=== PATIENT | female | born 1970 | race Caucasian/White ===

== ENCOUNTER 2017-01-16 14:27 | Observation (INO) ==
--- NOTE | 2017-01-16 14:56 | Emergency Department Note ---
Disposition Clinical Impression: Infected prosthetic knee joint Qualifiers: Encounter type: initial encounter Qualified Code(s): T84.59XA - Infection and inflammatory reaction due to other internal joint prosthesis, initial encounter Disposition: Admitted As Inpatient Condition: Fair Referrals: Dejuan Bell, PAC [Primary Care Provider] - Forms: ED Satisfaction Letter Time of Disposition: 17:00 Extremity Problem HPI - General Chief complaint: ED Extremity Problem,Nontraumatic Stated complaint: poss. L knee infection Time Seen by Provider: 01/16/17 14:44 Source: patient Mode of arrival: ambulatory Limitations: no limitations Nursing Notes Reviewed: Yes Vital Signs Reviewed: Yes - History of Present Illness HPI Narrative: 46 yo f with L TKR about 12/23 presents with 9/10 knee pain. Pt states pain started a few days ago, was placed of keflex and bactrim PO abx. Day 4 outpt abx po, symptoms continuing to get worse. Knee pain and swelling have continued to get worse. She has had subjective fever and chills. Pain is made worse with movement, weight bearing or touch and relieved by nothing. Pt decently had LE doppler done that was -for DVT. ROM of L knee is decreased secondary to pain and swelling.She denies N/V/D CP, SOB, numbness tingling. Pt Subjective Complaint: joint paint Onset (ago): day(s) Consistency: constant Injury Location: left Pain Scale: 8 Quality: burning Radiation: none Improves with: nothing Worsens with: range of motion, weight bearing, walking, palpation Associated symptoms: Reports: fever - Related Data Home Medications Medication Instructions Recorded Confirmed Acetaminophen [Tylenol] 325 mg PO Q6HR PRN 11/25/16 11/25/16 Albuterol Sulfate [Proair Hfa] 2 puff IH Q4-6H PRN 11/25/16 11/25/16 Budesonide/Formoterol 160/4.5 2 puff IH BIDR 11/25/16 11/25/16 [Symbicort 160/4.5] Cyclobenzaprine [Flexeril] 10 mg PO TID PRN 11/25/16 11/25/16 Diclofenac Sodium [Voltaren] 1 appl TP QID 11/25/16 11/25/16 Docusate [Colace] 100 mg PO BID PRN 11/25/16 11/25/16 Gabapentin [Neurontin] 600 mg PO TID 11/25/16 11/25/16 Nitroglycerin [Nitrostat] 0.4 mg SL AD PRN 11/25/16 11/25/16 Omeprazole [PriLOSEC] 40 mg PO DAILY 11/25/16 11/25/16 Aspirin 325 mg PO BID 01/16/17 01/16/17 Lamotrigine 200 mg PO QAM 01/16/17 01/16/17 Allergies Allergy/AdvReac Type Severity Reaction Status Date / Time ibuprofen Allergy Swelling Verified 01/16/17 16:52 of Lip/Tongue/Throat meperidine [From Demerol] Allergy Anaphylaxis Verified 01/16/17 16:52 All systems ED: reviewed and negative except as stated. Constitutional: Reports: fever, chills Eyes: Denies: eye pain, eye discharge, vision change Cardiovascular: Denies: chest pain, palpitations, dyspnea on exertion, edema, syncope Respiratory: Denies: cough, dyspnea, wheezes, hemoptysis, stridor Gastrointestinal: Denies: abdominal pain, nausea, vomiting, diarrhea, constipation, hematemesis, melena, hematochezia Genitourinary: Denies: dysuria, frequency, hematuria, discharge Musculoskeletal: Reports: arthralgia Integumentary: Denies: rash, abrasion, lesions Neurological: Denies: headache, weakness, numbness, paresthesias, confusion, abnormal gait, vertigo Psychiatric: Denies: anxiety, depression, suicidal thoughts, homicidal thoughts , auditory hallucinations, visual hallucinations Past Medical History - Past Medical History Medical history: Reports: COPD, GERD, other Surgical history: Reports: cholecystectomy, hysterectomy, knee replacement, other Psychiatric history: Reports: anxiety, depression CAPTAIN ROOM SERVICE history: Reports: no CAPTAIN ROOM SERVICE history, 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 - Social History Smoking Status: Current every day smoker Smokeless Tobacco Status: No Alcohol use: Reports: none Drug use: Reports: none Physical Exam - General Limitations: no limitations General appearance: alert - Head Head exam: atraumatic, normocephalic, normal inspection - Eye Eye exam: Present: normal appearance, PERRL, EOMI - Expanded Eye Exam Pupils: Left: reactive - ENT ENT exam: normal exam, normal oropharynx, mucous membranes moist - Neck Neck exam: Present: normal inspection, full ROM, trachea midline - Chest Chest inspection: Present: normal inspection, symmetric chest wall rise - Respiratory Respiratory exam: Present: normal lung sounds bilaterally - Cardiovascular Cardiovascular exam: Present: regular rate, normal rhythm, normal heart sounds, +S1, +S2 - Abdominal Exam Abdominal exam: Present: soft, Non-Tender. Absent: tenderness, distention, guarding, rebound, rigidity - Extremities Exam Extremities exam: Present: tenderness, normal capillary refill, joint swelling. Absent: pedal edema, calf tenderness - Expanded Lower Extremity Exam Knee exam: Present: tenderness, swelling, erythema, effusion, other (healing midline incision C/D/I). Absent: abrasion, laceration, deformity, dislocation Neurovascular/Tendon exam: Present: normal capillary refill, normal 2-point discrimination, normal fine/light touch. Absent: pulse deficit, sensory deficit , extremity cold to touch, foot drop - Back Exam Back exam: Present: normal inspection, full ROM. Absent: tenderness - Neurological Exam Neurological exam: Present: alert, oriented X3, CN II-XII intact - Psychiatric Psychiatric exam: Present: normal affect, normal mood - Skin Skin exam: Present: warm, dry, intact, normal color Course Course Narrative: likely L knee infection of total joint replacement failed PO abx therapy will likely need admission for IV abx therapy - Reevaluation(s) Reevaluation #1: OAx3 pt c/o intense L Knee pain Time: 04:00 Vital Signs Temperature 98.5 F 01/16/17 14:29 Pulse Rate 111 01/16/17 14:29 Respiratory Rate 18 01/16/17 14:29 Blood Pressure 123/81 01/16/17 14:29 O2 Sat by Pulse Oximetry 98 01/16/17 14:29 Temperature 98.5 F 01/16/17 14:29 Pulse Rate 88 01/16/17 16:18 Respiratory Rate 18 01/16/17 16:18 Blood Pressure 115/79 01/16/17 16:18 O2 Sat by Pulse Oximetry 100 01/16/17 16:18 Oxygen Delivery Oxygen Delivery Room Air Extremity Problem, Nontraumati - MDM Narrative Medical decision making narrative: likely L knee joint infection failed outpt PO abx despite no temp or leukocytosis high suspicion for L knee infected prosthetic will need IV abx and orthopedic consult - Differential Diagnosis Likely: other - Medical Records Medical records reviewed: Yes I reviewed the patient's medical records. - Lab Data Lab results reviewed: Yes I reviewed the patient's lab results. Result diagrams: 01/16/17 14:54 01/16/17 14:54 Lab Results 01/16/17 01/16/17 Range/Units 14:54 14:54 WBC 9.2 (4.3-11.1) K/mcL RBC 3.90 (3.82-4.97) M/mcL Hgb 13.6 (11.5-15.4) g/dL Hct 39.8 (35.3-44.9) % MCV 102.1 H (83.0-100.0) fL MCH 34.9 H (28.0-33.3) pg MCHC 34.2 (31.6-35.5) g/dL RDW 13.3 (11.5-14.5) % Plt Count 301 (140-400) K/mcL MPV 8.7 L (9.4-12.4) fL Sodium 139 (136-145) mEq/L Potassium 3.9 (3.5-4.5) mEq/L Chloride 108 (98-109) mEq/L Carbon Dioxide 23 (19-29) mEq/L BUN 9 (7-20) mg/dL Creatinine 0.98 (0.57-1.11) mg/dL Est GFR ( Amer) > 60 (> 60) Est GFR (Non-Af Amer) > 60 (> 60) BUN/Creatinine Ratio 9 (6-26) Glucose 103 H (70-99) mg/dL Calculated Osmolality 287 (280-300) Calcium 8.9 (8.6-10.8) mg/dL - Radiology Data Radiology results reviewed: Yes I reviewed the patient's radiology results. - Core Measures AMI Core Measures Followed: Yes Critical Care Time Critical Care Time: No Attestation Statement - Attestation Attestation: I examined this patient and my medical decision-making was reviewed with the EMERGENCY ROOM DOCTOR/PA/Advanced Practice Nurse/Resident Physician. I agree with the documented findings, disposition and treatment plan as described except to the extent set forth below. spoke with Ortho dr mirza will admit to hospitalist spoke to hospitalist as well accepted pt abelardo
[2017-01-16 15:06] LABS: Hematocrit 39.8 % (35.3-44.9); Hemoglobin 13.6 g/dL (11.5-15.4); Mean Corpuscular HGB Conc 34.2 g/dL (31.6-35.5); Mean Corpuscular Hemoglobin 34.9 pg (28.0-33.3); Mean Corpuscular Volume 102.1 fL (83.0-100.0); Mean Platelet Volume 8.7 fL (9.4-12.4); Platelet Count 301 K/mcL (140-400); Red Cell Distribution Width 13.3 % (11.5-14.5)
[2017-01-16 15:31] LABS: BUN/Creatinine Ratio 9 (6-26); Blood Urea Nitrogen 9 mg/dL (7-20); Calcium 8.9 mg/dL (8.6-10.8); Carbon Dioxide 23 mEq/L (19-29); Chloride 108 mEq/L (98-109); Glucose 103 mg/dL (70-99); Osmolality,Calculated 287 (280-300); Potassium 3.9 mEq/L (3.5-4.5); Sodium 139 mEq/L (136-145); eGFR For African Americans > 60 (> 60); eGFR For Non-African Americans > 60 (> 60)
[2017-01-16] MEDS ORDERED: Piperacillin/Tazobactam 3.375 GM in D5% in Water (Mini-Bag+) 100 ML IVPB SCH ×2 (15:58→18:00)
[2017-01-16] MEDS ORDERED: Vancomycin 2,000 MG in D5% in Water 500 ML IVPB ONE (16:00)
[2017-01-16] MEDS ORDERED: *HR* OxyCODONE/APAP 5/325 TABLET PO ONE (16:43)
[2017-01-16] MEDS ORDERED: *HR* HYDROmorphone (PF) 1 MG/ML SYRINGE IVP ONE (17:15)
--- NOTE | 2017-01-16 17:20 | Internal Med History&Physical ---
Date of Encounter: 01/16/17 Time of Encounter: 17:17 Assessment and Plan (1) Infected prosthetic knee joint Current visit: Yes Status: Acute We will continue IV vancomycin and Zosyn for now. does not have white count or fever, was tachycardic on presentation. Was treated outpatient with Keflex and Bactrim with no improvement. Cultures has been sent from ED. Orthopedics has been consulted. We will follow recommendations. Qualifiers: Encounter type: initial encounter Qualified Code(s): T84.59XA - Infection and inflammatory reaction due to other internal joint prosthesis, initial encounter; Z96.659 - Presence of unspecified artificial knee joint Internal Medicine - H&P: HPI Chief complaint: left knee pain and swelling Admitted From: Home Plans for Post Hospital Care: Home History of present illness: Ms. Meade is a 46 year old female s/p L TKR about 12/23 presents with 9/10 knee pain. she says DR. Nelson did it in [place] and pain started a few days ago, was placed of keflex and bactrim PO abx. Day 4 outpt abx po, symptoms continuing to get worse. Knee pain and swelling have continued to get worse. She has had subjective fever and chills. Pain is made worse with movement, weight bearing or touch and relieved by nothing. Pt recently had LE doppler done that was negative for DVT. ROM of L knee is decreased secondary to pain and swelling.She denies N/V/D CP, SOB, numbness tingling. ortho was consulted from ED and has been started on IV antibiotics. Past Med Surg Social Fam HX - Past Medical History Medical history: COPD, GERD, other Psychiatric history: anxiety, depression - Past Surgical History Surgical History: cholecystectomy, hysterectomy, knee replacement, other - Social History Smoking Status: Current every day smoker Smokeless Tobacco Status: No Alcohol use: none Drug use: none Internal Medicine - H&P: Meds Acetaminophen [Tylenol] 325 mg PO Q6HR PRN 11/25/16 [History] Albuterol Sulfate [Proair Hfa] 2 puff IH Q4-6H PRN 11/25/16 [History] Budesonide/Formoterol 160/4.5 [Symbicort 160/4.5] 2 puff IH BIDR 11/25/16 [ History] Cyclobenzaprine [Flexeril] 10 mg PO TID PRN 11/25/16 [History] Diclofenac Sodium [Voltaren] 1 appl TP QID 11/25/16 [History] Docusate [Colace] 100 mg PO BID PRN 11/25/16 [History] Gabapentin [Neurontin] 600 mg PO TID 11/25/16 [History] Nitroglycerin [Nitrostat] 0.4 mg SL AD PRN 11/25/16 [History] Omeprazole [PriLOSEC] 40 mg PO DAILY 11/25/16 [History] Aspirin 325 mg PO BID 01/16/17 [History] Lamotrigine 200 mg PO QAM 01/16/17 [History] Allergies ibuprofen Allergy (Verified 01/16/17 16:52) Swelling of Lip/Tongue/Throat meperidine [From Demerol] Allergy (Verified 01/16/17 16:52) Anaphylaxis All Systems PM: A 10-system review of systems was performed and is negative for pertinent findings except as documented above in the HPI. - Constitutional Vitals: Temp Pulse Resp BP Pulse Ox 98.5 F 88 18 115/79 100 01/16/17 14:29 01/16/17 16:18 01/16/17 17:13 01/16/17 17:13 01/16/17 16:18 General appearance: Present: A&O X 3, no acute distress Exam: Neck supple. Chest bilateral clear, and oriented times. CVS S1-S2, no murmurs rubs or gallops. Abdomen soft, nontender, bowel sounds are present. Extremities left leg swollen,scar on the left knee from TKR, healed with no discharge, tender more over the left knee with mild redness and swelling. Internal Med - H&P Results - Labs CBC & Chem 7: 01/16/17 14:54 01/16/17 14:54
[2017-01-16] MEDS ORDERED: *HR* Enoxaparin 30 MG/0.3 ML SYRINGE SQ ONE (17:46)
[2017-01-16] MEDS: *HR* OxyCODONE/APAP 7.5/325 TABLET PO PRN (23:53)
[2017-01-17] MEDS: *HR* Enoxaparin 30 MG/0.3 ML SYRINGE SQ SCH (04:51)
[2017-01-17] MEDS: *HR* OxyCODONE/APAP 7.5/325 TABLET PO PRN ×5 (04:51→21:13)
[2017-01-17] MEDS: Piperacillin/Tazobactam 3.375 GM in D5% in Water (Mini-Bag+) 100 ML IVPB SCH ×2 (04:52→17:02)
[2017-01-17] MEDS ORDERED: Piperacillin/Tazobactam 3.375 GM in D5% in Water (Mini-Bag+) 100 ML IVPB SCH (06:00)
[2017-01-17] MEDS: Diclofenac Sodium [Voltaren] 1 APPL TP SCH ×4 (08:02→20:22)
[2017-01-17] MEDS: Gabapentin 300 MG CAPSULE PO SCH ×3 (08:03→20:22)
[2017-01-17 08:05] LABS: Basophils # 0.1 K/mcL (0.0-0.2); Basophils % 0.8 %; Eosinophils # 1.1 K/mcL (0.0-0.6); Eosinophils % 12.9 %; Hematocrit 41.9 % (35.3-44.9); Hemoglobin 13.7 g/dL (11.5-15.4); Immature Granulocytes % 0.2 % (0-4); Lymphocytes # 2.1 K/mcL (0.6-4.6); Lymphocytes % 23.8 %; Mean Corpuscular HGB Conc 32.7 g/dL (31.6-35.5); Mean Corpuscular Hemoglobin 34.1 pg (28.0-33.3); Mean Corpuscular Volume 104.2 fL (83.0-100.0); Mean Platelet Volume 8.9 fL (9.4-12.4); Monocytes # 0.8 K/mcL (0.0-1.3); Monocytes % 8.7 %; Neutrophils # 4.7 K/mcL (1.6-8.9); Platelet Count 324 K/mcL (140-400); Red Blood Count 4.02 M/mcL (3.82-4.97); Red Cell Distribution Width 13.2 % (11.5-14.5); Segmented Neutrophils % 53.6 %
[2017-01-17 08:18] LABS: BUN/Creatinine Ratio 13 (6-26); Blood Urea Nitrogen 13 mg/dL (7-20); Calcium 9.2 mg/dL (8.6-10.8); Carbon Dioxide 26 mEq/L (19-29); Chloride 106 mEq/L (98-109); Glucose 100 mg/dL (70-99); Osmolality,Calculated 288 (280-300); Potassium 3.9 mEq/L (3.5-4.5); Sodium 139 mEq/L (136-145); eGFR For African Americans > 60 (> 60); eGFR For Non-African Americans 58 (> 60)
[2017-01-17] MEDS: Ondansetron 4 MG/2 ML VIAL IVP PRN ×2 (08:59→15:06)
[2017-01-17] MEDS: *HR* Morphine 2 MG/ML SYRINGE IVP PRN ×4 (10:20→23:56)
[2017-01-17] MEDS: lamoTRIgine 100 MG TABLET PO SCH (10:44)
[2017-01-17] MEDS: Nicotine 21 MG PATCH.TD24 TD SCH (10:44)
[2017-01-17] MEDS ORDERED: Vancomycin 2,000 MG in D5% in Water 250 ML IVPB SCH (11:00)
--- NOTE | 2017-01-17 11:22 | Internal Med Progress Note ---
Date of Encounter: 01/17/17 Time of Encounter: 11:20 - Assessment and plan (1) Status post total knee replacement, left Current Visit: Yes Status: Chronic Assessment and plan: Patient underwent left TKR at [facility] on 12/24/15. (2) Left knee pain Current Visit: Yes Status: Acute Assessment and plan: A few days ago, patient developed left knee pain and swelling with associated subjective fever and chills. She was started on oral Keflex and Bactrim as outpatient with no improvement of her symptoms. Suspected infected prosthetic left knee joint. No leukocytosis. No fever. No tachycardia. Continue IV vancomycin and Zosyn. Continue pain control. Blood cultures pending. CT of left leg ordered. Orthopedics service consulted. Qualifiers: Chronicity: acute Qualified Code(s): M25.562 - Pain in left knee - Subjective Interval history: patient complains of intermittent severe pain in left knee and calf. - Constitutional Vitals: Temp Pulse Resp BP Pulse Ox 98.3 F 75 18 118/90 95 01/17/17 06:38 01/17/17 08:07 01/17/17 06:38 01/17/17 08:07 01/17/17 06:38 General appearance: Present: cooperative, A&O X 3, no acute distress, answers questions appropriately - Respiratory Respiratory exam: Present: CTAB - Cardiovascular Cardiovascular exam: Present: RRR - GI/Abdominal GI/Abdominal exam: Present: normal bowel sounds, soft. Absent: distended, tenderness - Extremities Exam Additional comments: left leg: swelling of knee with tenderness to palpation, no rednesss. - Back Exam Back exam: Absent: CVA tenderness (L), CVA tenderness (R) - Neurological Exam Neurological exam: Present: alert, oriented X3, no focal deficits, strengths equal and symetr throughout. Absent: facial droop, speech deficit - Skin Skin exam: Absent: rash Internal Medicine: Result - Labs CBC & Chem 7: 01/17/17 07:41 01/17/17 07:41 Labs: Short CBC 01/17/17 Range/Units 07:41 WBC 8.7 (4.3-11.1) K/mcL Hgb 13.7 (11.5-15.4) g/dL Hct 41.9 (35.3-44.9) % Plt Count 324 (140-400) K/mcL Neutrophils # 4.7 (1.6-8.9) K/mcL BMP 01/17/17 07:41 Sodium 139 Potassium 3.9 Chloride 106 Carbon Dioxide 26 BUN 13 Creatinine 1.01 Glucose 100 H Calcium 9.2 Consult Discharge Plan - Plan Referrals: Dejuan Bell, PAC [Primary Care Provider] -
[2017-01-17] MEDS ORDERED: Ipratropium/Albuterol Neb 3 ML IH PRN (11:29)
[2017-01-17] MEDS: Vancomycin 1,750 MG in D5% in Water 500 ML IVPB SCH ×2 (12:57→23:56)
--- NOTE | 2017-01-17 18:35 | Orthopedic Consult Note ---
Date of Encounter: 01/17/17 Time of Encounter: 18:24 History of Present Illness Chief complaint: Left knee pain HPI: Ms. Meade is a 46 year old female who underwent an uncomplicated left total knee arthroplasty on 12/22/16. Patient was seen in the office in follow-up on 01/06/17 at which time her knee was addressed. She was doing fine, knee incision was healthy. Patient reportedly fell or sustained some sort of an injury to her knee on 01/09/17. This is when her pain changed and became more pronounced along the medial side of the knee. She apparently was seen at [facility] in the emergency room on 01/13/17. She had a lower extremity Doppler that was negative for DVT and was started on Keflex and Bactrim. Patient states that the pain progressed and she presented to the emergency room and [facility] and was admitted for a possible prosthetic joint infection. Patient's chief complaint is medial knee pain and swelling from the knee distal. For complete history and physical data please see the completed medical records. Pertinent orthopedic examination at this time reveals the patient to be afebrile. Vital signs are stable. The left lower extremity shows a healing incision without any evidence of redness drainage etc. Knee motion is quite good. Patient does have tenderness along the medial collateral ligament. There is only mild extension loss. Examination shows no overt instability. Laboratory data includes a normal white blood cell count. Hemoglobin is 13.7. Sedimentation rate is 17, top normal is 15. CRP is pending. CT of the knee shows the cemented 3 component prosthesis without complicating features. There is an effusion as would be expected with a knee that is only 3+ weeks out. Impression: Postoperative left knee pain, status post left TKA. Doubt infectious process, suspect related to MCL sprain/strain on a postop, posttraumatic basis Recommendation: I doubt there is any way to prove that this knee is or is not infected. I doubt arthrocentesis would be helpful due to the patient's antibiotic use. My index of suspicion for infection is extremely low. I would recommend converting patient back to a by mouth regimen of Keflex and Bactrim and use that for roughly 7-10 days. I will see her back in the office for follow-up after discharge. Thank you very much for allowing me to see and care for Samia. Sincerely, David Nelson,DO Past Med Surg Social Fam HX - Past Medical History Medical history: COPD, GERD, other Psychiatric history: anxiety, depression - Past Surgical History Surgical History: cholecystectomy, hysterectomy, knee replacement, other - Social History Smoking Status: Current every day smoker Packs per day: 1 Smokeless Tobacco Status: No Alcohol use: none Drug use: none - Family History Father Hx Family Cardiac Disorders: (TRIPLE BYPASS) Hx Family Endocrine Disorder: Yes (DIABETES) Medications and Allergies Acetaminophen [Tylenol] 325 mg PO Q6HR PRN 11/25/16 [History] Albuterol Sulfate [Proair Hfa] 2 puff IH Q4-6H PRN 11/25/16 [History] Budesonide/Formoterol 160/4.5 [Symbicort 160/4.5] 2 puff IH BIDR 11/25/16 [ History] Cyclobenzaprine [Flexeril] 10 mg PO TID PRN 11/25/16 [History] Diclofenac Sodium [Voltaren] 1 appl TP QID 11/25/16 [History] Docusate [Colace] 100 mg PO BID PRN 11/25/16 [History] Gabapentin [Neurontin] 600 mg PO TID 11/25/16 [History] Nitroglycerin [Nitrostat] 0.4 mg SL AD PRN 11/25/16 [History] Omeprazole [PriLOSEC] 40 mg PO DAILY 11/25/16 [History] Aspirin 325 mg PO BID 01/16/17 [History] Lamotrigine 200 mg PO QAM 01/16/17 [History] Allergies ibuprofen Allergy (Verified 01/16/17 16:52) Swelling of Lip/Tongue/Throat meperidine [From Demerol] Allergy (Verified 01/16/17 16:52) Anaphylaxis All Systems Reviewed: A 10-system review of systems was performed and is negative for pertinent findings except as documented above in the HPI. Physical Exam - Constitutional Vitals: Temp Pulse Resp BP Pulse Ox 98.2 F 18 18 122/70 96 01/17/17 14:35 01/17/17 14:35 01/17/17 11:27 01/17/17 14:25 01/17/17 14:35 Results - Labs Result Diagrams: 01/17/17 07:41 01/17/17 07:41 Labs: Abnormal lab results MCV 104.2 fL (83.0-100.0) H 01/17/17 07:41 MCH 34.1 pg (28.0-33.3) H 01/17/17 07:41 MPV 8.9 fL (9.4-12.4) L 01/17/17 07:41 Eosinophils # 1.1 K/mcL (0.0-0.6) H 01/17/17 07:41 ESR 17 mm/hr (0-15) H 01/17/17 07:41 Est GFR (Non-Af Amer) 58 (> 60) L 01/17/17 07:41 Glucose 100 mg/dL (70-99) H 01/17/17 07:41 H & H 01/17/17 Range/Units 07:41 Hgb 13.7 (11.5-15.4) g/dL Hct 41.9 (35.3-44.9) % All other labs normal. Consult Discharge Plan - Plan Referrals: Dejuan Bell, PAC [Primary Care Provider] -
[2017-01-17 18:54] LABS: C-Reactive Protein 3 mg/L (Less than 5)
[2017-01-17] MEDS: Budesonide/Formoterol 160/4.5 MDI IH SCH (20:56)
[2017-01-18] MEDS: *HR* OxyCODONE/APAP 7.5/325 TABLET PO PRN ×2 (03:07→07:43)
[2017-01-18 04:08] LABS: Basophils % 0.5 %; Eosinophils % 12.4 %; Hematocrit 37.7 % (35.3-44.9); Hemoglobin 12.6 g/dL (11.5-15.4); Immature Granulocytes % 0.3 % (0-4); Lymphocytes % 26.1 %; Mean Corpuscular HGB Conc 33.4 g/dL (31.6-35.5); Mean Corpuscular Hemoglobin 34.7 pg (28.0-33.3); Mean Corpuscular Volume 103.9 fL (83.0-100.0); Mean Platelet Volume 9.1 fL (9.4-12.4); Monocytes # 0.8 K/mcL (0.0-1.3); Monocytes % 10.3 %; Platelet Count 260 K/mcL (140-400); Red Blood Count 3.63 M/mcL (3.82-4.97); Segmented Neutrophils % 50.4 %
[2017-01-18 04:28] LABS: BUN/Creatinine Ratio 14 (6-26); Blood Urea Nitrogen 13 mg/dL (7-20); Calcium 8.6 mg/dL (8.6-10.8); Carbon Dioxide 26 mEq/L (19-29); Chloride 103 mEq/L (98-109); Glucose 95 mg/dL (70-99); Osmolality,Calculated 278 (280-300); Potassium 4.1 mEq/L (3.5-4.5); Sodium 134 mEq/L (136-145); eGFR For African Americans > 60 (> 60); eGFR For Non-African Americans > 60 (> 60)
[2017-01-18] MEDS: Piperacillin/Tazobactam 3.375 GM in D5% in Water (Mini-Bag+) 100 ML IVPB SCH (05:22)
[2017-01-18] MEDS: *HR* Enoxaparin 30 MG/0.3 ML SYRINGE SQ SCH (05:25)
[2017-01-18] MEDS: *HR* Morphine 2 MG/ML SYRINGE IVP PRN (05:27)
[2017-01-18] MEDS: lamoTRIgine 100 MG TABLET PO SCH (07:43)
[2017-01-18] MEDS: Gabapentin 300 MG CAPSULE PO SCH (07:43)
[2017-01-18] MEDS: Diclofenac Sodium [Voltaren] 1 APPL TP SCH (07:44)
[2017-01-18] MEDS: Nicotine 21 MG PATCH.TD24 TD SCH (07:44)
[2017-01-18] MEDS: Budesonide/Formoterol 160/4.5 MDI IH SCH (08:12)
[2017-01-18 08:23] VITALS: BP 121/84
--- NOTE | 2017-01-18 08:32 | Discharge Summary ---
Date of Encounter: 01/18/17 Time of Encounter: 08:31 - Discharge Diagnosis (1) Status post total knee replacement, left Priority: Primary Status: Chronic (2) Left knee pain Priority: Primary Status: Acute Qualifiers: Chronicity: acute Qualified Code(s): M25.562 - Pain in left knee - Discharge Medications Prescriptions: Cephalexin [Keflex] 500 mg PO BID #10 capsule Lactobacillus [Culturelle] 1 each PO BID #10 cap.sprink Nicotine Patch [Nicoderm] 21 mg TD DAILY #30 patch.td24 Sulfamethoxazole/Trimeth DS [Bactrim DS] 1 each PO BID #10 tablet Home Medications: Acetaminophen [Tylenol] 325 mg PO Q6HR PRN 11/25/16 [History] Albuterol Sulfate [Proair Hfa] 2 puff IH Q4-6H PRN 11/25/16 [History] Budesonide/Formoterol 160/4.5 [Symbicort 160/4.5] 2 puff IH BIDR 11/25/16 [ History] Cyclobenzaprine [Flexeril] 10 mg PO TID PRN 11/25/16 [History] Diclofenac Sodium [Voltaren] 1 appl TP QID 11/25/16 [History] Docusate [Colace] 100 mg PO BID PRN 11/25/16 [History] Gabapentin [Neurontin] 600 mg PO TID 11/25/16 [History] Nitroglycerin [Nitrostat] 0.4 mg SL AD PRN 11/25/16 [History] Omeprazole [PriLOSEC] 40 mg PO DAILY 11/25/16 [History] Aspirin 325 mg PO BID 01/16/17 [History] Lamotrigine 200 mg PO QAM 01/16/17 [History] Cephalexin [Keflex] 500 mg PO BID #10 capsule 01/18/17 [Rx] Lactobacillus [Culturelle] 1 each PO BID #10 cap.sprink 01/18/17 [Rx] Nicotine Patch [Nicoderm] 21 mg TD DAILY #30 patch.td24 01/18/17 [Rx] Sulfamethoxazole/Trimeth DS [Bactrim DS] 1 each PO BID #10 tablet 01/18/17 [Rx] Allergies/Adverse Reactions: Allergies ibuprofen Allergy (Verified 01/16/17 16:52) Swelling of Lip/Tongue/Throat meperidine [From Demerol] Allergy (Verified 01/16/17 16:52) Anaphylaxis Procedures/tests Complete & Pending: Procedures Performed prior 72 hours Category Date Time Status CT LE LT wo con [CT] Routine Cat Scan 01/17/17 11:25 Completed Date of admission: 01/16/17 17:02 Primary care physician: Dejuan Bell Consults: 01/17/17 17:33 Consult to Orthopedic Surgery [CONS] Routine Consulting Provider: Orthopedic and Sports Medicine Reason for Consult: dr Nelson. Valeria TKR. c/o swelling and erythema Call Completed: Yes - Patient Status Disposition: Home, Self-Care Condition: Good Functional capacity at discharge: independent ambulation Overall status at discharge: patient is progressing back to baseline - Discharge Instructions Follow Up With: David Nelson DO [Non-Partnered Physician] - (F/U IN 1-2 WEEKS) Dejuan Bell PAC [Primary Care Provider] - (F/U IN 2 WEEKS) Additional Instructions: PLEASE FOLLOW UP WITH DR NELSON.. FOLLOW UP WITH YOUR PRIMARY CARE DOCTOR FOR WEIGHT LOSS PROGRAM AND TOBACCO CESSATION. STOP SMOKING. - Diet and Activity Activity: ambulate only with your walker Diet: low fat, low cholesterol, low salt diet Interval History: Patient reports her knee pain is better and is eager to go home. Patient requests not to have any scripts for pain medications since she follows in the pain management clinic, she will have her pain meds prescribe at Dr Nelson's office. Hospital course: Ms. Meade is a 46 year old female with past medical history of COPD, morbid obesity, and tobacco use who underwent left total knee replacement on 2015 at [facility]. Four days prior to admission, patient developed left knee pain and swelling and she was prescribed oral Keflex and oral Bactrim. She was started on IV Zosyn and IV vancomycin. She remained afebrile and hemodynamically stable during this hospitalization. No leukocytosis. CT head showed status post left open knee arthroplasty without evidence for periprosthetic fracture or loosening, moderate left knee effusion. Given no signs of infection, her IV antibiotics were stopped. PLAN: Oral Keflex and oral Augmentin for 5 more days. Follow-up at Dr. Nelson's office. - Time Spent with Patient Total time spent providing and/or coordinating discharge services: - Constitutional Vitals: Temp Pulse Resp BP Pulse Ox 98.7 F 85 16 121/84 94 01/18/17 08:09 01/18/17 08:09 01/18/17 08:12 01/18/17 08:09 01/18/17 08:12 General appearance: Present: cooperative, A&O X 3, pleasant, no acute distress, answers questions appropriately - Respiratory Respiratory exam: Present: CTAB - Cardiovascular Cardiovascular exam: Present: RRR - GI/Abdominal GI/Abdominal exam: Present: normal bowel sounds, soft. Absent: distended, tenderness - Extremities Exam Additional comments: left knee swelling and mild tenderness. no erythema. no discharge. - Back Exam Back exam: Absent: CVA tenderness (L), CVA tenderness (R) - Neurological Exam Neurological exam: Present: alert, oriented X3, no focal deficits, strengths equal and symetr throughout. Absent: facial droop, speech deficit
[2017-01-18] MEDS ORDERED: Aminoglycoside Consult 1 EACH MC ONE (10:14)
== END 2017-01-18 10:15 | disposition home or self-care (01) ==
LOC: EMEROO 14:27 → 3NENU 14:27
PROVIDERS: ADMIT Internal Medicine; ATTEND Internal Medicine

== ENCOUNTER 2018-02-23 16:12 | Observation (INO) ==
[2018-02-23] MEDS ORDERED: Isovue-370 500 ML INFUS..BTL IV ONE (17:09)
--- NOTE | 2018-02-23 17:42 | Emergency Department Note ---
Disposition Clinical Impression: Weakness of left arm Disposition: Admitted As Inpatient Referrals: Mora Reza [Primary Care Provider] - Forms: ED Satisfaction Letter Neuro HPI - General Chief Complaint: ED Neuro Symptoms/Deficit Stated Complaint: Headache,L side numbness Time Seen by Provider: 02/23/18 16:40 Source: patient Mode of arrival: ambulatory Limitations: no limitations Nursing Notes Reviewed: Yes Vital Signs Reviewed: Yes - History of Present Illness HPI Narrative: 47 F c PMHx COPD, GERD, Low back pain, tobacco abuse who reports to the ED c/o L sided pressure like posterior MERCEDES, L sided numbness/tingling and weakness x 4 days. Patient reports 4 days ago she developed a L sided posterior MERCEDES. She says the next day she began noticing intermittent spells of dropping things with her Left hand and feeling generally week on that side. She reports she feels off balance with walking listing to the left. She reports she is dizzy. She says when moving her head to the left she feels like room is spinning and when she closes her eyes she feels like the room is spinning but this stops after a few moments. She reports she has numbness and tingling in her LUE involving the whole hand forearm and shoulder. She reports numbness and tingling around L knee which is chronic. She denies Nausea, Vomiting, Fever. She reports this morning when she woke up around 7am she felt like the left side of her face was drooping and that she was drooling. She reports other noticed her slurring her words. She states she doesn't thinks he is currently slurring her words. She also reports she has had intermittent diarrhea since November. Location: left face, left arm, ataxia - Related Data Home Medications: Home Medications Medication Instructions Recorded Confirmed Acetaminophen [Tylenol] 325 mg PO Q6HR PRN 11/25/16 01/16/17 Albuterol Sulfate [Proair Hfa] 2 puff IH Q4-6H PRN 11/25/16 01/16/17 Budesonide/Formoterol 160/4.5 2 puff IH BIDR 11/25/16 01/16/17 [Symbicort 160/4.5] Cyclobenzaprine [Flexeril] 10 mg PO TID PRN 11/25/16 01/16/17 Diclofenac Sodium [Voltaren] 1 appl TP QID 11/25/16 01/16/17 Docusate [Colace] 100 mg PO BID PRN 11/25/16 01/16/17 Gabapentin [Neurontin] 600 mg PO TID 11/25/16 01/16/17 Nitroglycerin [Nitrostat] 0.4 mg SL AD PRN 11/25/16 01/16/17 Omeprazole [PriLOSEC] 40 mg PO DAILY 11/25/16 01/16/17 Aspirin 325 mg PO BID 01/16/17 01/16/17 lamoTRIgine [Lamotrigine] 200 mg PO QAM 01/16/17 01/16/17 Previous Rx's Medication Instructions Recorded Lactobacillus [Culturelle] 1 each PO BID #10 cap.sprink 01/18/17 Nicotine Patch [Nicoderm] 21 mg TD DAILY #30 patch.td24 01/18/17 Sulfamethoxazole/Trimeth DS 1 each PO BID #10 tablet 01/18/17 [Bactrim DS] cephALEXin [Keflex] 500 mg PO BID #10 capsule 01/18/17 HYDROcodone/Acet 5/325 mg [[place] 1 tab PO Q4H PRN #15 tab 01/30/17 5-325 mg] Sulfamethoxazole/Trimeth DS 1 each PO BID #14 tablet 01/30/17 [Bactrim DS] cephALEXin [Keflex] 500 mg PO QID #28 capsule 01/30/17 Diclofenac Sodium [Voltaren] 1 appl TP QID #100 gm 05/13/17 Dicyclomine [Bentyl] 10 mg PO QID #40 capsule 02/02/18 Allergies/Adverse Reactions: Allergies Allergy/AdvReac Type Severity Reaction Status Date / Time ibuprofen Allergy Swelling Verified 02/23/18 16:17 of Lip/Tongue/Throat meperidine [From Demerol] Allergy Anaphylaxis Verified 02/23/18 16:17 Review of Systems: As Per HPI Past Medical History - Past Medical History Medical history: Reports: no medical history, GERD, other, COPD Surgical history: Reports: cholecystectomy, knee replacement, other, hysterectomy Psychiatric history: Reports: anxiety, bipolar, depression 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 Absent: tenderness - Respiratory Respiratory exam: Present: normal lung sounds bilaterally. Absent: respiratory distress - Cardiovascular Cardiovascular exam: Present: regular rate, normal rhythm, normal heart sounds - Abdominal Exam Abdominal exam: Present: soft, Non-Tender - Extremities Exam Extremities exam: Present: full ROM. Absent: pedal edema - Neurological Exam Neurological exam: Present: alert, oriented X3 - Expanded Neurological Exam Cranial nerves: EOM function (II, III, IV, ): Normal, facial sensation (V): Abnormal Left, facial palsy (VII): Abnormal Left, gag reflex (IX): Normal, spinal accessory function (XI): Abnormal Left, tongue deviation (XII): Normal Cerebellar function: finger to nose: Normal, heel to mcrae: Normal Motor strength - LUE: 4/5 Motor strength - RUE: 5/5 Motor strength - LLE: 4/5 Motor strength - RLE: 5/5 Upper motor neuron exam: Babinski sign: Absent bilaterally Sensory exam upper extremity: light touch: Abnormal Left Sensory exam lower extremity: light touch: Abnormal Left DTR: bicep (L): 1+, bicep (R): 1+, brachioradialis (L): 1+, brachioradialis (R) : 1+ - Psychiatric Psychiatric exam: Present: normal affect, normal mood - Skin Skin exam: Present: warm, dry Course - Consultations Consultation #1: Discussed case with admitting hospitalist. They agreed to admit the patient. Vital Signs Temperature 98.1 F 02/23/18 16:14 Pulse Rate 86 02/23/18 16:14 Respiratory Rate 18 02/23/18 16:14 Blood Pressure 157/90 02/23/18 16:14 O2 Sat by Pulse Oximetry 96 02/23/18 16:14 Temperature 98.1 F 02/23/18 17:47 Pulse Rate 83 02/23/18 18:20 Respiratory Rate 16 02/23/18 18:20 Blood Pressure 126/53 02/23/18 18:20 O2 Sat by Pulse Oximetry 94 02/23/18 18:20 Oxygen Delivery Oxygen Delivery Room Air Neuro Symptoms/Deficit - [facility] Narrative Medical decision making narrative: Patient with signs and symptoms concerning for a CVA. However patient presents days after initial symptoms of LUE weakness and 9 hours after symptoms of slurred speech and facial droop this morning at 7am upon waking. MERCEDES was gradual onset, not thunderclap, not worst headache of her life. Will check CT head, CTA head, basic lab work. Admit for full stroke work up ECHO, Carotid U/S, Lipid panel etc. - Lab Data Result diagrams: 02/23/18 17:39 02/23/18 17:39 Lab Results 02/23/18 02/23/18 02/23/18 Range/Units 17:39 17:39 17:39 WBC 10.2 (4.3-11.1) K/mcL RBC 4.09 (3.82-4.97) M/mcL Hgb 14.0 (11.5-15.4) g/dL Hct 41.1 (35.3-44.9) % MCV 100.5 H (83.0-100.0) fL MCH 34.2 H (28.0-33.3) pg MCHC 34.1 (31.6-35.5) g/dL RDW 12.7 (11.5-14.5) % Plt Count 270 (140-400) K/mcL MPV 8.9 L (9.4-12.4) fL Immature Gran % 0.4 (0-4) % Seg Neutrophils % 65.3 % Lymphocytes % 24.4 % Monocytes % 7.1 % Eosinophils % 2.3 % Basophils % 0.5 % Neutrophils # 6.7 (1.6-8.9) K/mcL Lymphocytes # 2.5 (0.6-4.6) K/mcL Monocytes # 0.7 (0.0-1.3) K/mcL Eosinophils # 0.2 (0.0-0.6) K/mcL Basophils # 0.1 (0.0-0.2) K/mcL PT 9.6 (9.4-12.1) Seconds INR 0.9 APTT 30.2 (26.0-36.0) Seconds Sodium 136 (136-145) mEq/L Potassium 4.1 (3.5-5.1) mEq/L Chloride 105 (98-107) mEq/L Carbon Dioxide 29 (23-29) mEq/L BUN 11 (6-20) mg/dL Creatinine 0.92 (0.60-1.20) mg/dL Est GFR ( Amer) > 60 (> 60) Est GFR (Non-Af Amer) > 60 (> 60) BUN/Creatinine Ratio 12 (6-26) Glucose 105 (70-105) mg/dL POC Glucose (70-99) mg/dL Calculated Osmolality 282 (280-300) Calcium 8.8 (8.6-10.3) mg/dL 02/23/18 Range/Units 17:49 WBC (4.3-11.1) K/mcL RBC (3.82-4.97) M/mcL Hgb (11.5-15.4) g/dL Hct (35.3-44.9) % MCV (83.0-100.0) fL MCH (28.0-33.3) pg MCHC (31.6-35.5) g/dL RDW (11.5-14.5) % Plt Count (140-400) K/mcL MPV (9.4-12.4) fL Immature Gran % (0-4) % Seg Neutrophils % % Lymphocytes % % Monocytes % % Eosinophils % % Basophils % % Neutrophils # (1.6-8.9) K/mcL Lymphocytes # (0.6-4.6) K/mcL Monocytes # (0.0-1.3) K/mcL Eosinophils # (0.0-0.6) K/mcL Basophils # (0.0-0.2) K/mcL PT (9.4-12.1) Seconds INR APTT (26.0-36.0) Seconds Sodium (136-145) mEq/L Potassium (3.5-5.1) mEq/L Chloride (98-107) mEq/L Carbon Dioxide (23-29) mEq/L BUN (6-20) mg/dL Creatinine (0.60-1.20) mg/dL Est GFR ( Amer) (> 60) Est GFR (Non-Af Amer) (> 60) BUN/Creatinine Ratio (6-26) Glucose (70-105) mg/dL POC Glucose 104 H (70-99) mg/dL Calculated Osmolality (280-300) Calcium (8.6-10.3) mg/dL NIH Stroke Scale - Level of Consciousness LOC: Alert - LOC Questions LOC Questions: Answers both correctly - LOC Commands LOC Commands: Performs both correctly - Best Gaze Best Gaze: Normal - Visual Visual: No visual loss - Facial Palsy Facial Palsy: Minor asymmetry on smiling, flattened nasolabial fold - Motor Arms Motor Arm-Left: Drift, does NOT hit bed Motor Arm-Right: No drift for 10 seconds - Motor Legs Motor Leg-Left: Drift, does NOT hit bed Motor Leg-Right: No drift for 5 seconds - Limb Ataxia Limb Ataxia: Normal, No Ataxia - Sensory Sensory: Mild to moderate loss, "not as sharp" - Best Language Best Language: No aphasia - Dysarthria Dysarthria: Normal - Extinction and Inattention Extinction and Inattention: Normal - NIHSS Total Score NIHSS Total Score: 4 TPA Checklist - LKW: 3-4.5 hrs Add. Warnings/Precautions Patient/family understanding: The patient/family members have been counseled and understood the risk, benefit , and alternatives of treatment. Attestation Statement - Attestation Attestation: I, Mau Dodge DO, examined this patient [id number] and my medical decision-making was reviewed with Henry Marin PGY-1, Resident Physician. I agree with the documented findings, disposition and treatment plan as described except to the extent set forth below. Please see my progress notes for details.
[2018-02-23 18:04] LABS: Basophils # 0.1 K/mcL (0.0-0.2); Basophils % 0.5 %; Eosinophils # 0.2 K/mcL (0.0-0.6); Eosinophils % 2.3 %; Hematocrit 41.1 % (35.3-44.9); Immature Granulocytes % 0.4 % (0-4); Lymphocytes # 2.5 K/mcL (0.6-4.6); Lymphocytes % 24.4 %; Mean Corpuscular HGB Conc 34.1 g/dL (31.6-35.5); Mean Corpuscular Hemoglobin 34.2 pg (28.0-33.3); Mean Corpuscular Volume 100.5 fL (83.0-100.0); Mean Platelet Volume 8.9 fL (9.4-12.4); Monocytes # 0.7 K/mcL (0.0-1.3); Monocytes % 7.1 %; Neutrophils # 6.7 K/mcL (1.6-8.9); Platelet Count 270 K/mcL (140-400); Red Blood Count 4.09 M/mcL (3.82-4.97); Red Cell Distribution Width 12.7 % (11.5-14.5); Segmented Neutrophils % 65.3 %
[2018-02-23 18:07] LABS: INR 0.9; Prothrombin Time 9.6 Seconds (9.4-12.1)
[2018-02-23 18:10] LABS: Activated Partial Thrombo Time 30.2 Seconds (26.0-36.0)
[2018-02-23 18:15] LABS: BUN/Creatinine Ratio 12 (6-26); Blood Urea Nitrogen 11 mg/dL (6-20); Calcium 8.8 mg/dL (8.6-10.3); Carbon Dioxide 29 mEq/L (23-29); Chloride 105 mEq/L (98-107); Glucose 105 mg/dL (70-105); Osmolality,Calculated 282 (280-300); Potassium 4.1 mEq/L (3.5-5.1); Sodium 136 mEq/L (136-145); eGFR For African Americans > 60 (> 60); eGFR For Non-African Americans > 60 (> 60)
--- NOTE | 2018-02-23 18:54 | Emergency Department Note ---
Disposition Clinical Impression: Weakness of left arm, Dizziness, Headache Disposition: Admitted As Inpatient Condition: Fair Referrals: Mora Reza [Primary Care Provider] - Forms: ED Satisfaction Letter Time of Disposition: 20:21 General Adult HPI - General Chief complaint: ED Neuro Symptoms/Deficit Stated complaint: Headache,L side numbness Time Seen by Provider: 02/23/18 16:40 Source: patient Mode of arrival: ambulatory Limitations: no limitations - History of Present Illness Pain Scale: 6 - Related Data Home Medications Medication Instructions Recorded Confirmed Acetaminophen [Tylenol] 325 mg PO Q6HR PRN 11/25/16 01/16/17 Albuterol Sulfate [Proair Hfa] 2 puff IH Q4-6H PRN 11/25/16 01/16/17 Budesonide/Formoterol 160/4.5 2 puff IH BIDR 11/25/16 01/16/17 [Symbicort 160/4.5] Cyclobenzaprine [Flexeril] 10 mg PO TID PRN 11/25/16 01/16/17 Diclofenac Sodium [Voltaren] 1 appl TP QID 11/25/16 01/16/17 Docusate [Colace] 100 mg PO BID PRN 11/25/16 01/16/17 Gabapentin [Neurontin] 600 mg PO TID 11/25/16 01/16/17 Nitroglycerin [Nitrostat] 0.4 mg SL AD PRN 11/25/16 01/16/17 Omeprazole [PriLOSEC] 40 mg PO DAILY 11/25/16 01/16/17 Aspirin 325 mg PO BID 01/16/17 01/16/17 lamoTRIgine [Lamotrigine] 200 mg PO QAM 01/16/17 01/16/17 Previous Rx's Medication Instructions Recorded Lactobacillus [Culturelle] 1 each PO BID #10 cap.sprink 01/18/17 Nicotine Patch [Nicoderm] 21 mg TD DAILY #30 patch.td24 01/18/17 Dicyclomine [Bentyl] 10 mg PO QID #40 capsule 02/02/18 Allergies Allergy/AdvReac Type Severity Reaction Status Date / Time ibuprofen Allergy Swelling Verified 02/23/18 16:17 of Lip/Tongue/Throat meperidine [From Demerol] Allergy Anaphylaxis Verified 02/23/18 16:17 Past Medical History - Past Medical History Medical history: Reports: no medical history, GERD, other, COPD Surgical history: Reports: cholecystectomy, knee replacement, other, hysterectomy Psychiatric history: Reports: anxiety, bipolar, depression 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, 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 - Social History Smoking Status: Current every day smoker Smokeless Tobacco Status: No Alcohol use: Reports: none Drug use: Reports: none Physical Exam - General Limitations: no limitations General appearance: alert, in no apparent distress Course Vital Signs Temperature 98.1 F 02/23/18 16:14 Pulse Rate 86 02/23/18 16:14 Respiratory Rate 18 02/23/18 16:14 Blood Pressure 157/90 02/23/18 16:14 O2 Sat by Pulse Oximetry 96 02/23/18 16:14 Temperature 98.1 F 02/23/18 17:47 Pulse Rate 83 02/23/18 18:20 Respiratory Rate 16 02/23/18 18:20 Blood Pressure 126/53 02/23/18 18:20 O2 Sat by Pulse Oximetry 94 02/23/18 18:20 Oxygen Delivery Oxygen Delivery Room Air Medical Decision Making - Lab Data Result diagrams: 02/23/18 17:39 02/23/18 17:39 Lab Results 02/23/18 02/23/18 02/23/18 Range/Units 17:39 17:39 17:39 WBC 10.2 (4.3-11.1) K/mcL RBC 4.09 (3.82-4.97) M/mcL Hgb 14.0 (11.5-15.4) g/dL Hct 41.1 (35.3-44.9) % MCV 100.5 H (83.0-100.0) fL MCH 34.2 H (28.0-33.3) pg MCHC 34.1 (31.6-35.5) g/dL RDW 12.7 (11.5-14.5) % Plt Count 270 (140-400) K/mcL MPV 8.9 L (9.4-12.4) fL Immature Gran % 0.4 (0-4) % Seg Neutrophils % 65.3 % Lymphocytes % 24.4 % Monocytes % 7.1 % Eosinophils % 2.3 % Basophils % 0.5 % Neutrophils # 6.7 (1.6-8.9) K/mcL Lymphocytes # 2.5 (0.6-4.6) K/mcL Monocytes # 0.7 (0.0-1.3) K/mcL Eosinophils # 0.2 (0.0-0.6) K/mcL Basophils # 0.1 (0.0-0.2) K/mcL PT 9.6 (9.4-12.1) Seconds INR 0.9 APTT 30.2 (26.0-36.0) Seconds Sodium 136 (136-145) mEq/L Potassium 4.1 (3.5-5.1) mEq/L Chloride 105 (98-107) mEq/L Carbon Dioxide 29 (23-29) mEq/L BUN 11 (6-20) mg/dL Creatinine 0.92 (0.60-1.20) mg/dL Est GFR ( Amer) > 60 (> 60) Est GFR (Non-Af Amer) > 60 (> 60) BUN/Creatinine Ratio 12 (6-26) Glucose 105 (70-105) mg/dL POC Glucose (70-99) mg/dL Calculated Osmolality 282 (280-300) Calcium 8.8 (8.6-10.3) mg/dL 02/23/18 Range/Units 17:49 WBC (4.3-11.1) K/mcL RBC (3.82-4.97) M/mcL Hgb (11.5-15.4) g/dL Hct (35.3-44.9) % MCV (83.0-100.0) fL MCH (28.0-33.3) pg MCHC (31.6-35.5) g/dL RDW (11.5-14.5) % Plt Count (140-400) K/mcL MPV (9.4-12.4) fL Immature Gran % (0-4) % Seg Neutrophils % % Lymphocytes % % Monocytes % % Eosinophils % % Basophils % % Neutrophils # (1.6-8.9) K/mcL Lymphocytes # (0.6-4.6) K/mcL Monocytes # (0.0-1.3) K/mcL Eosinophils # (0.0-0.6) K/mcL Basophils # (0.0-0.2) K/mcL PT (9.4-12.1) Seconds INR APTT (26.0-36.0) Seconds Sodium (136-145) mEq/L Potassium (3.5-5.1) mEq/L Chloride (98-107) mEq/L Carbon Dioxide (23-29) mEq/L BUN (6-20) mg/dL Creatinine (0.60-1.20) mg/dL Est GFR ( Amer) (> 60) Est GFR (Non-Af Amer) (> 60) BUN/Creatinine Ratio (6-26) Glucose (70-105) mg/dL POC Glucose 104 H (70-99) mg/dL Calculated Osmolality (280-300) Calcium (8.6-10.3) mg/dL Attestation Statement - Attestation Attestation: I, Mau Dodge DO, examined this patient [id number] and my medical decision-making was reviewed with Henry Marin PGY-1, Resident Physician. I agree with the documented findings, disposition and treatment plan as described except to the extent set forth below. Please see my progress notes for details. 47-year-old female presents emergency room with complaint of left-sided weakness and headache or dizziness that is been present since Wednesday. Patient notices symptoms at that time. She has had intermittent symptoms of progression drops things in her left hand. She never had any like this before. Patient did not want to come onto the hospital so she refused to be evaluated prior to that. Patient eventually decided, to the hospital for evaluation. On presentation here vital signs are stable. She denies any chest pain shortness of breath headache vision changes nausea vomiting diarrhea. Denies any fevers or chills. No recent trauma or injuries. Her main complaint is left-sided weakness as well as the dizziness. Neurologic evaluation shows a normal appearing female head is atraumatic pupils are round reactive extraocular muscles are intact. Cranial nerves II through XII are grossly intact. Oropharynx is patent trachea is midline. Patient has full range of motion of the neck. Heart is regular lungs are clear. Abdomen is soft nontender nondistended. Patient has inability to move all 4 extremities but there is some appreciable weakness on the left upper and left lower extremity at this time. She has normal sensation across the extremities is symmetrical bilaterally. Pulses are intact in the radial DP and PT distributions bilaterally as well. Patient does not appear to need any acute intervention does not meet any criteria for immediate stroke evaluation of this point. Patient is not a candidate for TPA. Patient will have detailed evaluation could not CT the head with CT angiography of the head and the neck along with CBC chemistry electrolytes and EKG. Once this workup is completed patient will most likely be admitted for stroke evaluation considering the left-sided weakness that is appreciable on examination. Patient is otherwise in no apparent distress resting comfortably in the bed. Symptomatically control will be completed if needed. Patient denied any pain or symptoms on initial arrival. See detailed documentation of the physical exam, medical intervention , medical decision-making and disposition in the resident physician's note. No critical care provider this patient's treatment course at this time
[2018-02-23] MEDS ORDERED: Ketorolac 15 MG/ML VIAL IVP ONE (19:22)
[2018-02-23] MEDS ORDERED: Ondansetron 4 MG/2 ML VIAL IVP ONE (19:35)
[2018-02-23] MEDS ORDERED: Aspirin 81 MG TAB.CHEW PO STA (19:36)
[2018-02-23] MEDS ORDERED: Acetaminophen 325 MG TABLET PO PRN (21:24)
[2018-02-23] MEDS ORDERED: Naloxone 0.4 MG/ML INJ IVP PRN (21:24)
[2018-02-23] MEDS: Nicotine 21 MG PATCH.TD24 TD SCH (22:57)
[2018-02-23] MEDS: *HR* HYDROcodone/Acet 5/325 mg TABLET PO PRN (22:57)
[2018-02-23] MEDS: D5% in 0.45% NACL 1,000 ML IVC SCH (22:58)
[2018-02-23] MEDS: Budesonide/Formoterol 160/4.5 MDI IH SCH (23:05)
--- NOTE | 2018-02-24 03:03 | Internal Med History&Physical ---
Date of Encounter: 02/23/18 Time of Encounter: 20:00 Internal Medicine - H&P: HPI Chief complaint: Left-sided weakness Admitted From: Home Plans for Post Hospital Care: Home History of present illness: Ms. Meade is a 47 year old female present to ER for left sided weakness/ numbness for 4-5 days. Past medical history is significant for COPD, anxiety, and depression. Patient said she started to have left arm and left leg numbness and weakness since Wednesday. Patient also complaining of left facial numbness and facial drop. Patient said that her friends/family told her she has slurred speech. However, when I saw patient, I believe her speech is okay. Patient complaint headache on the left side. Patient has mild nausea, no vomiting. Patient denies double vision or vision loss. Patient has a mild choking on eating. In the emergency room, CT head negative for stroke. CT angios shows normal CTA of head. As patient's symptoms persist, patient was admitted for further management. Past Med Surg Social Fam HX - Past Medical History Medical history: GERD, other, COPD Psychiatric history: anxiety, bipolar, depression - Past Surgical History Surgical History: cholecystectomy, knee replacement, other, hysterectomy - Social History Smoking Status: Current every day smoker Packs per day: 1 Smokeless Tobacco Status: No Alcohol use: none Drug use: none - Family History Father Hx Family Cardiac Disorders: (TRIPLE BYPASS) Hx Family Endocrine Disorder: Yes (DIABETES) Internal Medicine - H&P: Meds Acetaminophen [Tylenol] 325 mg PO Q6HR PRN 11/25/16 [History] Albuterol Sulfate [Proair Hfa] 2 puff IH Q4-6H PRN 11/25/16 [History] Budesonide/Formoterol 160/4.5 [Symbicort 160/4.5] 2 puff IH BIDR 11/25/16 [ History] Cyclobenzaprine [Flexeril] 10 mg PO TID PRN 11/25/16 [History] Diclofenac Sodium [Voltaren] 1 appl TP QID 11/25/16 [History] Nitroglycerin [Nitrostat] 0.4 mg SL AD PRN 11/25/16 [History] Omeprazole [PriLOSEC] 40 mg PO DAILY 11/25/16 [History] Dicyclomine [Bentyl] 10 mg PO QID #40 capsule 02/02/18 [Rx] Aspirin [Lo-Dose Aspirin EC] 81 mg PO DAILY 02/23/18 [History] Gabapentin [Neurontin] 800 mg PO TID 02/23/18 [History] HYDROcodone/Acet 5/325 mg [[place] 5-325 mg] 0.5 tab PO QPM 02/23/18 [History] HYDROcodone/Acet 5/325 mg [[place] 5-325 mg] 1 tab PO QAM 02/23/18 [History] Linaclotide [Linzess] 145 mcg PO DAILY 02/23/18 [History] OLANZapine [Zyprexa] 2.5 mg PO DAILY 02/23/18 [History] PARoxetine HCl [Paroxetine HCl] 40 mg PO DAILY 02/23/18 [History] clonazePAM [Klonopin] 1 mg PO TID 02/23/18 [History] 3 Allergy/AdvReac Type Severity Reaction Status Date / Time ibuprofen Allergy Swelling Verified 02/23/18 20:28 of Lip/Tongue/Throat meperidine [From Demerol] Allergy Anaphylaxis Verified 02/23/18 20:28 All Systems PM: A 10-system review of systems was performed and is negative for pertinent findings except as documented above in the HPI. - Constitutional Vitals: Temp Pulse Resp BP Pulse Ox 97.7 F 71 14 100/67 95 02/23/18 22:40 02/23/18 22:40 02/23/18 23:08 02/23/18 22:40 02/23/18 23:08 General appearance: Present: A&O X 3, no acute distress, answers questions appropriately - Head Head exam: Present: atraumatic, normocephalic - Eye Eye exam: Present: PERRL, conjuntiva pink, sclera anicteric Pupils: Present: PERRL - Neck Neck exam general surgery: Present: supple, trachea midline. Absent: lymphadenopathy - Respiratory Respiratory exam: Present: CTAB. Absent: accessory muscle use, rales, rhonchi, wheezes - Cardiovascular Cardiovascular exam: Present: RRR, +S1, +S2. Absent: diastolic murmur, gallop, rubs, systolic murmur - GI/Abdominal GI/Abdominal exam: Present: normal bowel sounds, soft, no peritoneal signs. Absent: distended, tenderness - Extremities Exam Extremities exam: Present: warm, radial pulses palpable and symmetrical. Absent : calf tenderness, cyanotic, pedal edema - Neurological Exam Neurological exam: Present: CN II-XII intact, motor sensory deficit (Left-sided weakness with motor 4/5 on both left upper extremity and lower extremity), oriented X3, no focal deficits. Absent: pronater drift, facial droop, speech deficit Additional comments: Patient reports left side vision field defect. - Skin Skin exam: Present: dry, intact Internal Med - H&P Results - Labs CBC & Chem 7: 02/23/18 17:39 02/23/18 17:39 - Assessment and plan (1) Left-sided weakness Current Visit: Yes Status: Acute Assessment and plan: Need to rule out acute CVA. CT head negative so far. Will consider MRI in a.m. - Place patient on [facility] protocol - Continuous cardiac monitoring - Echo and duplex carotid - ASA and atorvastatin - Neurology consult - PTOT - Keep patient nothing by mouth, IV fluid, swallow evaluation in a.m. (2) COPD (chronic obstructive pulmonary disease) Current Visit: Yes Status: Acute Assessment and plan: Stable, no wheezing, continue home medications. Qualifiers: COPD type: emphysema Emphysema type: unspecified Qualified Code(s): J43.9 - Emphysema, unspecified (3) DVT prophylaxis Current Visit: Yes Status: Acute Assessment and plan: Heparin subcutaneously (4) Headache Current Visit: Yes Status: Acute Assessment and plan: Etiology is undetermined. Head CT negative, MR head ordered. Symptomatic treatment. Qualifiers: Headache type: unspecified Headache chronicity pattern: acute headache Intractability: not intractable Qualified Code(s): R51 - Headache - Time Spent With Patient Total time spent is greater than 50% in coordination of care (as documented) at patient's floor/unit and/or counseling patient: 40 minutes Greater than 35 minutes
[2018-02-24] MEDS: *HR* Heparin 5,000 UNIT/ML VIAL SQ SCH ×2 (06:15→18:10)
[2018-02-24] MEDS: *HR* HYDROcodone/Acet 5/325 mg TABLET PO PRN ×2 (06:15→14:55)
[2018-02-24 07:18] LABS: Basophils % 0.4 %; Eosinophils # 0.2 K/mcL (0.0-0.6); Eosinophils % 2.3 %; Hematocrit 38.9 % (35.3-44.9); Hemoglobin 13.7 g/dL (11.5-15.4); Immature Granulocytes % 0.5 % (0-4); Lymphocytes # 2.3 K/mcL (0.6-4.6); Lymphocytes % 24.4 %; Mean Corpuscular HGB Conc 35.2 g/dL (31.6-35.5); Mean Corpuscular Hemoglobin 35.6 pg (28.0-33.3); Monocytes # 0.6 K/mcL (0.0-1.3); Monocytes % 6.4 %; Neutrophils # 6.2 K/mcL (1.6-8.9); Platelet Count 236 K/mcL (140-400); Red Blood Count 3.85 M/mcL (3.82-4.97); Red Cell Distribution Width 12.8 % (11.5-14.5)
[2018-02-24 07:51] LABS: BUN/Creatinine Ratio 13 (6-26); Blood Urea Nitrogen 11 mg/dL (6-20); Calcium 8.3 mg/dL (8.6-10.3); Carbon Dioxide 25 mEq/L (23-29); Chol/HDL Ratio 3.8 (0-4.9); Cholesterol 172 mg/dL (< 200); Glucose 98 mg/dL (70-105); HDL Cholesterol 45 mg/dL (40-59); LDL Cholesterol,Calculated 105 mg/dL (0-99); Magnesium 2.1 mg/dL (1.6-2.6); Triglycerides 111 mg/dL (< 150); eGFR For African Americans > 60 (> 60); eGFR For Non-African Americans > 60 (> 60)
[2018-02-24] MEDS: Budesonide/Formoterol 160/4.5 MDI IH SCH ×2 (07:59→19:53)
[2018-02-24 09:07] LABS: Chloride 105 mEq/L (98-107); Osmolality,Calculated 281 (280-300); Potassium 3.7 mEq/L (3.5-5.1); Sodium 136 mEq/L (136-145)
[2018-02-24] MEDS: D5% in 0.45% NACL 1,000 ML IVC SCH (09:56)
[2018-02-24] MEDS: clonazePAM 1 MG TABLET PO SCH ×3 (09:57→23:07)
[2018-02-24] MEDS: OLANZapine 5 MG TAB.RAPDIS PO SCH (09:57)
[2018-02-24] MEDS: Gabapentin 400 MG CAPSULE PO SCH ×3 (09:57→23:07)
[2018-02-24] MEDS: Aspirin Enteric Coated 81 MG Tablet PO SCH (09:57)
[2018-02-24] MEDS: Nicotine 21 MG PATCH.TD24 TD SCH (09:58)
[2018-02-24] MEDS: (Linaclotide [Linzess] 145 MCG) PO SCH (09:58)
--- NOTE | 2018-02-24 10:57 | Neurology - Consult Note ---
Date of Encounter: 02/24/18 Time of Encounter: 10:50 Assessment and Plan (1) Left-sided weakness Current Visit: Yes Status: Acute New onset of left sided weakness, sparing the left face, associated with 4 days of headaches in a young patient without significant risk factors except obesity. Differential diagnosis include CVA, small vessel lacunar infarct, less likely hemeplegic migraines which is diagnosis of exclusion. Await stroke work up including MRI of brain, carotid artery duplex and Echocardiography. If MRI of brain returns normal then will not consider antiplatelet therapy. If MRI of brain returns positive for evidence of CVA then will start her on antiplatelet therapy. PT evaluation. May need statin therapy. History of Present Illness Chief complaint: Left sided weakness HPI: Ms. Meade is a 47 year old female with PMH significant for left total knee replacement, obesity COPD, low back pain who developed subacute onset of left sided weakness for few days and headaches x4. She states that this is something new for her. She has not had any headaches for about a year. She has been experiencing on and off dropping things from her left hand since the last few days and she says that at times her brain is in a fog. Initial CT of head reported normal study. She has had left total replacement and that she could not control her left leg position and it keeps automatically externally rotated position. Past Med Surg Social Fam HX - Past Medical History Medical history: GERD, other, COPD Psychiatric history: anxiety, bipolar, depression - Past Surgical History Surgical History: cholecystectomy, knee replacement, other, hysterectomy - Social History Smoking Status: Current every day smoker Packs per day: 1 Smokeless Tobacco Status: No Alcohol use: none Drug use: none - Family History Father Hx Family Cardiac Disorders: (TRIPLE BYPASS) Hx Family Endocrine Disorder: Yes (DIABETES) Medications and Allergies Acetaminophen [Tylenol] 325 mg PO Q6HR PRN 11/25/16 [History] Albuterol Sulfate [Proair Hfa] 2 puff IH Q4-6H PRN 11/25/16 [History] Budesonide/Formoterol 160/4.5 [Symbicort 160/4.5] 2 puff IH BIDR 11/25/16 [ History] Cyclobenzaprine [Flexeril] 10 mg PO TID PRN 11/25/16 [History] Diclofenac Sodium [Voltaren] 1 appl TP QID 11/25/16 [History] Nitroglycerin [Nitrostat] 0.4 mg SL AD PRN 11/25/16 [History] Omeprazole [PriLOSEC] 40 mg PO DAILY 11/25/16 [History] Dicyclomine [Bentyl] 10 mg PO QID #40 capsule 02/02/18 [Rx] Aspirin [Lo-Dose Aspirin EC] 81 mg PO DAILY 02/23/18 [History] Gabapentin [Neurontin] 800 mg PO TID 02/23/18 [History] HYDROcodone/Acet 5/325 mg [Crowell 5-325 mg] 0.5 tab PO QPM 02/23/18 [History] HYDROcodone/Acet 5/325 mg [Crowell 5-325 mg] 1 tab PO QAM 02/23/18 [History] Linaclotide [Linzess] 145 mcg PO DAILY 02/23/18 [History] OLANZapine [Zyprexa] 2.5 mg PO DAILY 02/23/18 [History] PARoxetine HCl [Paroxetine HCl] 40 mg PO DAILY 02/23/18 [History] clonazePAM [Klonopin] 1 mg PO TID 02/23/18 [History] 3 Allergy/AdvReac Type Severity Reaction Status Date / Time ibuprofen Allergy Swelling Verified 02/23/18 20:28 of Lip/Tongue/Throat meperidine [From Demerol] Allergy Anaphylaxis Verified 02/23/18 20:28 All Systems: The remainder of the systems were reviewed and are negative Physical Examination - Vital Signs Vital Signs: Initial Vital Signs Temp Pulse Resp BP Pulse Ox 98.1 F 86 18 157/90 96 02/23/18 16:14 02/23/18 16:14 02/23/18 16:14 02/23/18 16:14 02/23/18 16:14 - Constitutional General appearance: comfortable - Neurologic Sensorimotor examination: intact, other Motor examination - right side: 5/5: deltoids, biceps, triceps, wrist flexion, wrist extension, automotive 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 assistant, hip flexors, tibialis Anterior, quadriceps, toe extension (EHL), plantarflexion Motor examination - left side: 4/5: deltoids, biceps, triceps, wrist flexion, wrist extension, hip flexors, automotive 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 assistant, quadriceps, tibialis Anterior, toe extension (EHL), plantarflexion Detailed sensory examination: intact Posture: other (None) Reflex and gait examination: other (Gait not tested) Reflexes: Biceps: 2+, Triceps: 2+, Brachioradialis: 2+, Patella: 2+, Achilles: 2 + Mental Status Examination: awake, alert, oriented to person, oriented to place, oriented to time, follows commands appropriately, answers questions appropriately, no agnosia, no aphasia, no aproxia Cranial nerve examination: PERRL, EOMI, visual celaya intact, corneal reflexes brisk symmetrically, sensory to face intact, mastication intact, no facial asymmetry is present, no dysarthria, hearing is intact symmetrically, soft palate elevates bilaterally upon phonation, gag reflex intact, flexes SCM and trapezius muscles symmetrically with full power, tongue protrudes midline, no atrophy or facial fasiculations present Cerebellar examination: performs finger to nose and heel to mcrae symmetrically without ataxia (reduced DEJA and dexterity to the left arm secondary to weakness) Results - Laboratory Findings CBC and BMP: 02/24/18 06:33 02/24/18 06:33 Abnormal lab findings: Abnormal lab results MCV 101.0 fL (83.0-100.0) H 02/24/18 06:33 MCH 35.6 pg (28.0-33.3) H 02/24/18 06:33 MPV 9.0 fL (9.4-12.4) L 02/24/18 06:33 POC Glucose 104 mg/dL (70-99) H 02/23/18 17:49 Calcium 8.3 mg/dL (8.6-10.3) L 02/24/18 06:33 LDL Cholesterol, Calc 105 mg/dL (0-99) H 02/24/18 06:33 Consult Discharge Plan - Plan Referrals: Mora Reza [Primary Care Provider] -
--- NOTE | 2018-02-24 19:51 | Internal Med Progress Note ---
Date of Encounter: 02/24/18 Time of Encounter: 14:35 - Assessment and plan (1) Headache Current Visit: Yes Status: Acute Assessment and plan: Patient denies current headache. She does report occipital headache 6 days ago prior to onset of left-sided weakness and numbness. Head CT negative for any intracranial abnormality, brain MRI also negative for any acute intracranial abnormality. Pain control as needed. Angiography CT 02/23/18 17:09 IMPRESSION: 1. No acute intracranial abnormality. 2. Normal CTA of the head. D/ / Gal Shahid / Gal Shahid Interpreting Provider: Gal Shahid Brain MRI 02/23/18 21:34 IMPRESSION: 1. No acute intracranial abnormality. 2. Minimal chronic white matter microvascular ischemic changes. D/ / Gal Shahid / Gal Shahid Interpreting Provider: Gal Shahid Qualifiers: Headache type: unspecified Headache chronicity pattern: acute headache Intractability: not intractable Qualified Code(s): R51 - Headache (2) Left-sided weakness Current Visit: Yes Status: Acute Assessment and plan: Patient with obvious left-sided extremity weakness on physical exam. Facial symmetry is intact. MRI brain and CT head negative. Echocardiogram shows LVEF of 60% with mild LV DD, mild TR and no evidence of PFO. Carotid Doppler reveals right side 6079% stenosis left side within normal limits. She has been evaluated by neurology. Do not recommend antiplatelet therapy since MRI is negative. Recommend PT evaluation and statin therapy. PT has recommended outpatient therapy after discharge. Continue to monitor for safety and falls. (3) COPD (chronic obstructive pulmonary disease) Current Visit: Yes Status: Acute Assessment and plan: No acute exacerbation. Lungs are clear and diminished without wheezing or rhonchi. Patient is not requiring supplemental oxygen. Continue home medications and O2 as needed. Qualifiers: COPD type: emphysema Emphysema type: unspecified Qualified Code(s): J43.9 - Emphysema, unspecified (4) DVT prophylaxis Current Visit: Yes Status: Acute Assessment and plan: Heparin, encourage ambulation with assistance. - Time Spent With Patient Total time spent is greater than 50% in coordination of care (as documented) at patient's floor/unit and/or counseling patient: less than 15 minutes - Subjective Interval history: Patient was seen and assessed at 1435. Time spent with patient was approximately 10-15 minutes. Patient is alert, awake, oriented. Her speech is clear. She appears to have left-sided weakness on physical exam. She reports occipital headache 6 days ago. She states that she took [id number] medication without any relief, this immediately preceded her left-sided weakness and numbness. She denies current headache, dizziness, blurred vision, numbness or tingling to her extremities. She denies abdominal pain, nausea, vomiting, diarrhea, chest pain or shortness of breath. - Constitutional Vitals: Temp Pulse Resp BP Pulse Ox 97.8 F 75 16 93/67 97 02/24/18 19:40 02/24/18 19:40 02/24/18 19:40 02/24/18 19:40 02/24/18 19:40 General appearance: Present: cooperative, A&O X 3, morbidly obese, pleasant, no acute distress, answers questions appropriately - Head Head exam: Present: atraumatic, normal inspection, normocephalic - Eye Eye exam: Present: conjuntiva pink, sclera anicteric - Neck Neck exam general surgery: Present: normal inspection, supple, trachea midline. Absent: lymphadenopathy, tenderness - Respiratory Respiratory exam: Present: CTAB. Absent: accessory muscle use, rales, respiratory distress, rhonchi, wheezes - Cardiovascular Cardiovascular exam: Present: RRR, +S1, +S2. Absent: diastolic murmur, gallop, rubs, systolic murmur - GI/Abdominal GI/Abdominal exam: Present: normal bowel sounds, soft, no peritoneal signs. Absent: distended, hepatomegaly, tenderness - Extremities Exam Extremities exam: Present: normal capillary refill, normal inspection, warm, radial pulses palpable and symmetrical. Absent: calf tenderness, cyanotic, pedal edema, tenderness - Neurological Exam Neurological exam: Present: alert, oriented X3, no focal deficits. Absent: altered, strengths equal and symetr throughout, pronater drift, facial droop, speech deficit - Skin Skin exam: Present: dry, intact, normal color, warm. Absent: rash Internal Medicine: Result - Labs CBC & Chem 7: 02/24/18 06:33 05/24/18 06:33 Labs: Short CBC 02/24/18 Range/Units 06:33 WBC 9.4 (4.3-11.1) K/mcL Hgb 13.7 (11.5-15.4) g/dL Hct 38.9 (35.3-44.9) % Plt Count 236 (140-400) K/mcL Neutrophils # 6.2 (1.6-8.9) K/mcL BMP 02/24/18 06:33 Sodium 136 Potassium 3.7 Chloride 105 Carbon Dioxide 25 BUN 11 Creatinine 0.88 Glucose 98 Calcium 8.3 L - ABG Interpretation ABG results: PT/INR, D-dimer PT 9.6 Seconds (9.4-12.1) 02/23/18 17:39 - Impressions Impressions Echocardiogram 02/23/18 21:28 Impressions: LVEF 60%. Mild left ventricular diastolic dysfunction. Normal right ventricular structure and function. Mild tricuspid regurgitation. No pulmonary hypertension. No evidence of PFO with agitated saline contrast. Left Ventricular Wall Motion: Rest Echo Findings All wall segments showed normal motion. Findings: Study Quality * Technically adequate exam. ECG Findings * Normal sinus rhythm. Left Ventricle * LVEF 60%. * Normal LV chamber size, wall thickness and function. * Mild left ventricular diastolic dysfunction. Right Ventricle * Normal right ventricular structure and function. Left Atrium * Normal left atrial size. Right Atrium * Normal right atrial size. Aortic Valve * No aortic regurgitation. * Trileaflet aortic valve. * No aortic stenosis. Mitral Valve * Normal mitral valve structure. * No mitral stenosis. * Trace mitral regurgitation. Tricuspid Valve * Normal tricuspid valve structure. * Mild tricuspid regurgitation. Pulmonic Valve * Pulmonic valve is not well visualized. * No pulmonic stenosis. * No pulmonic regurgitation. Pulmonary Artery * Pulmonary artery not well visualized. Aorta * Normally sized aortic root. Pericardium * There is no pericardial effusion present. Interatrial Septum * No evidence of PFO with agitated saline contrast. IVC * The IVC is not well evaluated. Brain MRI 02/23/18 21:34 IMPRESSION: 1. No acute intracranial abnormality. 2. Minimal chronic white matter microvascular ischemic changes. D/ / Gal Shahid / Gal Shahid Interpreting Provider: Gal Shahid Consult Discharge Plan - Plan Referrals: Mora Reza [Primary Care Provider] -
[2018-02-25] MEDS: *HR* Heparin 5,000 UNIT/ML VIAL SQ SCH (06:43)
[2018-02-25] MEDS: *HR* HYDROcodone/Acet 5/325 mg TABLET PO PRN ×2 (07:29→13:58)
[2018-02-25] MEDS: Budesonide/Formoterol 160/4.5 MDI IH SCH (07:39)
[2018-02-25] MEDS: Aspirin Enteric Coated 81 MG Tablet PO SCH (09:21)
[2018-02-25] MEDS: clonazePAM 1 MG TABLET PO SCH ×2 (09:21→15:38)
[2018-02-25] MEDS: Gabapentin 400 MG CAPSULE PO SCH ×2 (09:21→15:38)
[2018-02-25] MEDS: (Linaclotide [Linzess] 145 MCG) PO SCH (09:21)
[2018-02-25] MEDS: OLANZapine 5 MG TAB.RAPDIS PO SCH (09:21)
[2018-02-25] MEDS: Nicotine 21 MG PATCH.TD24 TD SCH (09:21)
[2018-02-25] MEDS: (Diclofenac Sodium [Voltaren] 1 APPL) TP SCH ×2 (10:43→13:54)
--- NOTE | 2018-02-25 12:11 | Neurology Progress Note ---
<Yogi Purcell - Last Filed: 02/25/18 12:08> Date of Encounter: 02/25/18 Time of Encounter: 09:45 Assessment and Plan (1) Left-sided weakness Current Visit: Yes Status: Acute No improvement in symptoms thus far. MRI was negative for acute infarcts, but did show chronic microvascular changes. Echo without significant findings. Carotid duplex demonstrated 60 to 79% stenosis on the right side. Left side was normal. Subjective Principal diagnosis: left sided weakness Interval history: Patient has had no interval improvement in her symptoms. Still exhibiting weakness on her left side with mild left facial weakness. Her headache has continued unabated. Objective - Constitutional Vitals: Temp Pulse Resp BP Pulse Ox 97.9 F 74 16 109/76 93 02/25/18 11:26 02/25/18 11:26 02/25/18 11:26 02/25/18 11:26 02/25/18 11:26 - Other Additional findings: CONSTITUTIONAL: Well-developed and well-nourished. Comfortable and in no acute distress. CARDIOVASCULAR: Regular rate and rhythm. +S1 and S2. CHEST: Normal work of breathing. NEURO: Mental Status: Alert and oriented x3. Follows commands and answers questions. Cranial Nerves: PERRL. EOMI. Visual celaya intact. Mild weakness in left face. Facial sensation intact. No dysarthria. Hearing intact. Soft palate elevates symmetrically. SCM and trapezius without weakness. Tongue protrudes in midline. Motor: Left - 4/5 in upper and lower extremities. Right - 5/5 in upper and lower extremities. Sensation intact. Reflexes 2+ throughout Cerebellar function intact to [id number]. Results - Laboratory Findings CBC and BMP: 02/24/18 06:33 02/24/18 06:33 Abnormal lab findings: Abnormal lab results MCV 101.0 fL (83.0-100.0) H 02/24/18 06:33 MCH 35.6 pg (28.0-33.3) H 02/24/18 06:33 MPV 9.0 fL (9.4-12.4) L 02/24/18 06:33 POC Glucose 110 mg/dL (70-99) H 02/25/18 00:25 Calcium 8.3 mg/dL (8.6-10.3) L 02/24/18 06:33 LDL Cholesterol, Calc 105 mg/dL (0-99) H 02/24/18 06:33 Consult Discharge Plan - Plan Referrals: Mora Reza [Primary Care Provider] - <Elda Heaton I - Last Filed: 02/25/18 15:41> Date of Encounter: 02/25/18 Assessment and Plan (1) Occipital neuralgia of left side Current Visit: Yes Status: Acute This patient is also complaining of these headaches for the last several days predominantly on the left occipital area tender to touch headache seems to be consistent with occipital neuralgia. She is also having a lot of back issues and back pain radiating down to her legs has an history of degenerative lumbar disease already on gabapentin and muscle relaxers. For her occipital neuralgia she would probably benefit from localized application of lidocaine cream or perhaps increasing the dose of gabapentin or may try her on Lyrica. She would benefit from occipital nerve block that could be done as an outpatient will follow up her after the discharge in the neurology clinic (2) Weakness of left arm Current Visit: Yes Status: Acute (3) Left-sided weakness Current Visit: Yes Status: Acute Pt was seen and examined, my medical decision was reviewed with the Resident Physician, I agree with the documented findings, disposition and treatment plas as described except to the extent set forth below Patient did have some subjective weakness of this left upper extremity and also left lower extremity lower activities symptoms are likely related to her degenerative lumbar spine upper extremity weakness does not seems to be consistent perhaps more action and effort related. MRI of the brain did not show any evidence of acute abnormality. Carotid duplex did shows no evidence of right mild to moderate 60-79% stenosis. Patient would need vascular consultation that could be done as an outpatient as MRI did not show any evidence of acute infarct. For carotid stenosis that I would recommend starting her on Plavix 75 mg daily along with 81 mg baby aspirin. She would also benefit from statin will start her on Lipitor 20 mg daily. She would like need repeat carotid duplex in 6 month or perhaps we could do CT angiogram of the neck. CT angiogram of the head did not show any critical stenosis. Elda Heaton MD Objective - Constitutional Vitals: Temp Pulse Resp BP Pulse Ox 97.8 F 91 18 131/68 91 02/25/18 15:26 02/25/18 15:26 02/25/18 15:26 02/25/18 15:26 02/25/18 15:26 Results - Laboratory Findings CBC and BMP: 02/24/18 06:33 02/24/18 06:33 Abnormal lab findings: Abnormal lab results MCV 101.0 fL (83.0-100.0) H 02/24/18 06:33 MCH 35.6 pg (28.0-33.3) H 02/24/18 06:33 MPV 9.0 fL (9.4-12.4) L 02/24/18 06:33 POC Glucose 110 mg/dL (70-99) H 02/25/18 00:25 Calcium 8.3 mg/dL (8.6-10.3) L 02/24/18 06:33 LDL Cholesterol, Calc 105 mg/dL (0-99) H 02/24/18 06:33
[2018-02-25] MEDS ORDERED: Lidocaine 4% CREAM (LMX) 5 GM TP PRN (15:13)
[2018-02-25 15:28] VITALS: BP 131/68
--- NOTE | 2018-02-25 16:19 | Discharge Summary ---
Orders not resulted at time of discharge: Pending orders 02/25/18 13:10 EKG [ECG 12 lead ECG] [ECG] Routine Date of Encounter: 02/25/18 Time of Encounter: 11:15 - Discharge Diagnosis (1) Headache Priority: Secondary Status: Acute Assessment and Plan: Continues to deny headache. Head CT negative for any intracranial abnormality, brain MRI also negative for any acute intracranial abnormality. Pain control as needed. Angiography CT 02/23/18 17:09 IMPRESSION: 1. No acute intracranial abnormality. 2. Normal CTA of the head. D/ / Gal Shahid / Gal Shahid Interpreting Provider: Gal Shahid Brain MRI 02/23/18 21:34 IMPRESSION: 1. No acute intracranial abnormality. 2. Minimal chronic white matter microvascular ischemic changes. D/ / Gal Shahid / Gal Shahid Interpreting Provider: Gal Shahid Qualifiers: Headache type: unspecified Headache chronicity pattern: acute headache Intractability: not intractable Qualified Code(s): R51 - Headache (2) Left-sided weakness Priority: Primary Status: Acute Assessment and Plan: Patient with obvious left-sided extremity weakness on physical exam, though inconsistent and appears to be forced. Facial symmetry is intact. She has been evaluated by neurology. Do not recommend antiplatelet therapy since MRI is negative. Neuro note 02/25: Recommend Plavix 75mg po daily, ASA 81mg po daily, and Lipitor 20mg po daily as well as vascular consult. PT has recommended outpatient therapy after discharge. (3) COPD (chronic obstructive pulmonary disease) Priority: Secondary Status: Acute Assessment and Plan: No acute exacerbation. Lungs are clear and diminished without wheezing or rhonchi. Patient did not require supplemental oxygen. 02/25: Pt reported chest pain in the morning. Upon exam, pt reported epigastric pain, tender to palpation. Pt states that recently her GERD has become worse. She takes Omeprazole 40mg po daily already, recommend pt see PCP for referral to GI. EKG completed, no ischemic changes, NSR. Chest xray negative for acute process. Continue home medications after discharge. Qualifiers: COPD type: emphysema Emphysema type: unspecified Qualified Code(s): J43.9 - Emphysema, unspecified (4) DVT prophylaxis Priority: Secondary Status: Acute Assessment and Plan: Heparin Hospital course: Ms. Meade is a 47 year old female with past medical history of knee replacement, COPD, anxiety and depression.. Patient was admitted to the emergency department with headache, dizziness, weakness of left arm, onset . She had had symptoms for 5 days prior to presentation to the emergency department and noticed a slow progression of symptoms. Patient reported dropping things in her left hand and feeling more weak at that time. Patient also reported left facial numbness and facial droop, patient states her family and friends told her that she also had slurred speech. She had no n/v/d, vision changes, dysphagia. MRI negative for acute infarct, though it did show chronic white matter microvascular ischemic changes. CTA head was also negative. Echocardiogram shows LVEF of 60% with mild LV DD, mild TR and no evidence of PFO. Bilateral carotid duplex completed right-sided 60-79% stenosis, left side within normal limits. Patient will require a vascular consult after discharge. Based on imaging, patient has no etiology for her headache. Likely, tension headache; patient has tenderness to and posterior neck. Patient is already on gabapentin and muscle relaxants for degenerative lumbar disease. Patient's left-sided weakness seems to be inconsistent throughout exam daily. Weakness appears to wax and wane and is subjective. Patient was evaluated by neurology who recommends Plavix 75 mg daily, aspirin 81 mg daily, Lipitor 20 mg daily for her carotid stenosis. Also recommend seeing vascular surgeon after discharge. 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 Patient also diagnosed with occipital neuralgia by neurology. Recommend application of lidocaine cream to localized area of headache. Patient was also evaluated by PT , recommend outpatient therapy. Patient's gait is steady but slow. Patient likely deconditioned as well as having weakness. Vital signs have been stable and within normal limits. Labs are also stable and within normal limits. Patient is stable and appropriate for discharge. Discharge discussed with: patient - Time Spent with Patient Total time spent providing and/or coordinating discharge services: Less than 30 minutes - Discharge Medications Prescriptions: Atorvastatin [Lipitor] 40 mg PO HS #30 tablet Clopidogrel [Plavix] 75 mg PO DAILY #30 tablet GuaiFENesin ER [Mucinex] 600 mg PO BID PRN #30 tbbp.12hr PRN Reason: Cough Lidocaine 4% CRM (LMX) [Lmx 4] 1 gm TP DAILY PRN #1 tube PRN Reason: headache Nicotine Patch [Nicoderm] 21 mg TD DAILY #30 patch.td24 Home Medications: Acetaminophen [Tylenol] 325 mg PO Q6HR PRN 11/25/16 [History] Albuterol Sulfate [Proair Hfa] 2 puff IH Q4-6H PRN 11/25/16 [History] Budesonide/Formoterol 160/4.5 [Symbicort 160/4.5] 2 puff IH BIDR 11/25/16 [ History] Cyclobenzaprine [Flexeril] 10 mg PO TID PRN 11/25/16 [History] Diclofenac Sodium [Voltaren] 1 appl TP QID 11/25/16 [History] Nitroglycerin [Nitrostat] 0.4 mg SL AD PRN 11/25/16 [History] Omeprazole [PriLOSEC] 40 mg PO DAILY 11/25/16 [History] Dicyclomine [Bentyl] 10 mg PO QID #40 capsule 02/02/18 [Rx] Aspirin [Lo-Dose Aspirin EC] 81 mg PO DAILY 02/23/18 [History] Gabapentin [Neurontin] 800 mg PO TID 02/23/18 [History] HYDROcodone/Acet 5/325 mg [[place] 5-325 mg] 0.5 tab PO QPM 02/23/18 [History] HYDROcodone/Acet 5/325 mg [[place] 5-325 mg] 1 tab PO QAM 02/23/18 [History] Linaclotide [Linzess] 145 mcg PO DAILY 02/23/18 [History] OLANZapine [Zyprexa] 2.5 mg PO DAILY 02/23/18 [History] PARoxetine HCl [Paroxetine HCl] 40 mg PO DAILY 02/23/18 [History] clonazePAM [Klonopin] 1 mg PO TID 02/23/18 [History] Atorvastatin [Lipitor] 40 mg PO HS #30 tablet 02/25/18 [Rx] Buspar 7.5 mg PO BID 02/25/18 [History] Clopidogrel [Plavix] 75 mg PO DAILY #30 tablet 02/25/18 [Rx] GuaiFENesin ER [Mucinex] 600 mg PO BID PRN #30 tbbp.12hr 02/25/18 [Rx] Lidocaine 4% CRM (LMX) [Lmx 4] 1 gm TP DAILY PRN #1 tube 02/25/18 [Rx] Nicotine Patch [Nicoderm] 21 mg TD DAILY #30 patch.td24 02/25/18 [Rx] Allergies/Adverse Reactions: 3 Allergy/AdvReac Type Severity Reaction Status Date / Time ibuprofen Allergy Swelling Verified 02/23/18 20:28 of Lip/Tongue/Throat meperidine [From Demerol] Allergy Anaphylaxis Verified 02/23/18 20:28 Date of admission: 02/23/18 21:24 Primary care physician: Mora Reza Consults: 02/23/18 21:28 Consult to Neurology [CONS] Routine Consulting Provider: Neurology [facility] Reason for Consult: Left side weakness Call Completed: No Discharging clinician: Karmen Miguel Anticipated date of discharge: 02/25/18 - Constitutional Vitals: Temp Pulse Resp BP Pulse Ox 97.8 F 91 18 131/68 91 02/25/18 15:26 02/25/18 15:26 02/25/18 15:26 02/25/18 15:26 02/25/18 15:26 General appearance: Present: cooperative, A&O X 3, morbidly obese, pleasant, no acute distress, answers questions appropriately - Head Head exam: Present: atraumatic, normal inspection, normocephalic - Eye Eye exam: Present: normal appearance, conjuntiva pink, sclera anicteric - Neck Neck exam general surgery: Present: supple, trachea midline. Absent: lymphadenopathy - Respiratory Respiratory exam: Present: CTAB. Absent: accessory muscle use, rales, rhonchi, wheezes - Cardiovascular Cardiovascular exam: Present: RRR, +S1, +S2. Absent: diastolic murmur, gallop, rubs, systolic murmur - GI/Abdominal GI/Abdominal exam: Present: normal bowel sounds, soft. Absent: distended, hepatomegaly, tenderness - Extremities Exam Extremities exam: Present: normal capillary refill, normal inspection, warm, radial pulses palpable and symmetrical. Absent: calf tenderness, cyanotic, pedal edema - Neurological Exam Neurological exam: Present: alert, CN II-XII intact, motor sensory deficit, oriented X3, no focal deficits. Absent: abnormal gait, altered, strengths equal and symetr throughout, facial droop, speech deficit - Skin Skin exam: Present: dry, intact, normal color, warm. Absent: rash - Patient Status Disposition: Home, Self-Care Condition: Good Functional capacity at discharge: uses cane/walker Overall status at discharge: patient is progressing back to baseline - Discharge Instructions Follow Up With: Mora Reza [Primary Care Provider] - Additional Instructions: Please follow up with your PCP in the next 3-5 days Return to the ER as needed for any other problems or concerns Return to your normal diet and activities as tolerated. You will need to follow up with your PCP as directed to get your PT started. Use your Symbicort and albuterol inhaler for your cough and COPD. Follow-up appointments: If there is not an appointment listed below, please call your physician and schedule a follow-up appointment. If you have congestive heart failure and your symptoms return, make an appointment with your physician. Medication List: Carry an up to date list of medications you are taking at all time. We have given you an updated medication list including any new medications that you have been prescribed. Please provide that list to your primary provider Symptoms: If your condition changes or you experience any of the following symptoms, notify your physician immediately: Unusual or worsening pain, fever, persistent nausea and vomiting, bleeding, increase in swelling (especially in your legs), sudden weight gain, extreme dizziness, chest pain, increased drainage or redness from a wound or incision. Go to the emergency department if you experience a problem with breathing. Weights: If you have a history of swelling or shortness of breath, weigh yourself daily and notify your physician if you have a weight gain of two or more pounds in one day or 5 or more pounds in a week. If you experience any of the warning signs for stroke: Sudden numbness or weakness of the face, arm or leg; especially on one side of the body, sudden confusion, trouble speaking or understanding, sudden trouble seeing in one or both eyes, sudden trouble walking, dizziness, loss of balance or coordination, sudden sever headache with no cause; Call 911 or go to the emergency room. Stroke is a medical emergency. Some risk factors for stroke: Age, cigarette smoking, diabetes, excessive alcohol consumption, family history , high blood pressure, overweight, physical inactivity, prior stroke, heart attack, diagnosis of carotid artery stenosis or other artery disease. If you smoke, STOP: Smoking or tobacco use significantly increases your risk of heart and lung disease. Your chance of disease greatly increases if you continue to smoke. For more information, call the [place] tobacco quit line for smoking cessation QUIT-NOW ( ) - Diet and Activity Activity: increase activity as tolerated Diet: low fat, low cholesterol
--- NOTE | 2018-02-26 08:21 | Electrocardiograph Report ---
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
--- NOTE | 2018-03-01 11:30 | Electrocardiograph Report ---
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
== END 2018-02-25 18:35 | disposition home or self-care (01) | DRG 948 ==
LOC: EMEROO 16:12 → 3BNU 16:12
PROVIDERS: ADMIT Internal Medicine; ATTEND Internal Medicine

== ENCOUNTER 2018-11-04 21:00 | Observation (INO) ==
[2018-11-04] MEDS ORDERED: Ipratropium/Albuterol Neb 3 ML IH ONE (21:10)
[2018-11-04 21:33] LABS: Basophils % 0.4 %; Eosinophils % 0.4 %; Hematocrit 38.6 % (35.3-44.9); Hemoglobin 13.3 g/dL (11.5-15.4); Immature Granulocytes % 0.3 % (0-4); Lymphocytes # 0.6 K/mcL (0.6-4.6); Lymphocytes % 8.5 %; Mean Corpuscular HGB Conc 34.5 g/dL (31.6-35.5); Mean Corpuscular Hemoglobin 31.7 pg (28.0-33.3); Mean Corpuscular Volume 92.1 fL (83.0-100.0); Mean Platelet Volume 8.9 fL (9.4-12.4); Monocytes # 0.7 K/mcL (0.0-1.3); Monocytes % 9.7 %; Neutrophils # 5.8 K/mcL (1.6-8.9); Platelet Count 248 K/mcL (140-400); Red Blood Count 4.19 M/mcL (3.82-4.97); Red Cell Distribution Width 13.4 % (11.5-14.5); Segmented Neutrophils % 80.7 %
[2018-11-04] MEDS ORDERED: Prochlorperazine 10 MG/2 ML VIAL IVP STA (21:44)
[2018-11-04] MEDS ORDERED: 0.9 % Sodium Chloride 1,000 ML IVC ONE (21:44)
[2018-11-04 21:54] LABS: BUN/Creatinine Ratio 11 (6-26); Blood Urea Nitrogen 10 mg/dL (6-20); Carbon Dioxide 23 mEq/L (23-29); Chloride 103 mEq/L (98-107); Glucose 105 mg/dL (70-105); Osmolality,Calculated 275 (280-300); Potassium 3.9 mEq/L (3.5-5.1); Sodium 133 mEq/L (136-145); eGFR For Non-African Americans > 60 (> 60)
[2018-11-04 21:55] LABS: Troponin I < 0.03 ng/mL (< 0.04)
--- NOTE | 2018-11-04 21:56 | Emergency Department Note ---
Disposition Clinical Impression: Hypoxia, COPD exacerbation Pneumonia Qualifiers: Pneumonia type: due to unspecified organism Laterality: bilateral Lung lo cation: unspecified part of lung Qualified Code(s): J18.9 - Pneumonia, unspecified organism Sepsis Qualifiers: Sepsis type: sepsis due to unspecified organism Qualified Code(s): A41.9 - Sepsis, unspecified organism Disposition: Admitted As Inpatient Condition: Fair Referrals: Mora Reza [Primary Care Provider] - Forms: ED Satisfaction Letter General Adult HPI - General Chief complaint: ED Shortness of Breath/Dyspnea Stated complaint: short of breath Time Seen by Provider: 11/04/18 21:08 Source: patient, EMS Mode of arrival: EMS Limitations: no limitations Nursing Notes Reviewed: Yes Vital Signs Reviewed: Yes - History of Present Illness HPI Narrative: Patient is a 48-year-old female with past medical history including COPD, not on oxygen, migraine and vertigo that is currently being worked up she had an outpatient MRI yesterday and will follow up with ENT, hypertension, hyperlipidemia, TIA, presenting with chief complaint of shortness of breath since yesterday. Patient complains of productive cough of yellow sputum since yesterday which is new for her. She also complains of progressively worsening shortness of breath that was not relieved by her albuterol inhaler. She also co mplains of substernal chest pain when she takes a deep breath. She states she had a difficulty time ambulating this afternoon secondary to his shortness of breath so she called EMS to take her here for further evaluation. She denies fevers at home. She denies cardiac stent placement or DVT or PE. She denies lightheadedness, nausea, vomiting, diaphoresis, abdominal pain, diarrhea. She is also complaining of her typical migraine headache with vertigo. She has no new symptoms, denies unilateral weakness or paresthesias or vision changes. Pain Scale: 8 - Related Data Home Medications Medication Instructions Recorded Confirmed RX: Acetaminophen [Tylenol] 325 mg PO Q6HR PRN 11/25/16 04/13/18 RX: Albuterol Sulfate [Proair Hfa] 2 puff IH Q4-6H PRN 11/25/16 04/13/18 RX: Budesonide/Formoterol 160/4.5 2 puff IH BIDR 11/25/16 04/13/18 [Symbicort 160/4.5] RX: Cyclobenzaprine [Flexeril] 10 mg PO TID PRN 11/25/16 04/13/18 RX: Diclofenac Sodium [Voltaren] 1 appl TP QID 11/25/16 04/13/18 RX: Nitroglycerin [Nitrostat] 0.4 mg SL AD PRN 11/25/16 04/13/18 RX: Omeprazole [PriLOSEC] 40 mg PO DAILY 11/25/16 04/13/18 RX: Aspirin [Lo-Dose Aspirin EC] 81 mg PO DAILY 02/23/18 04/13/18 RX: Gabapentin [Neurontin] 800 mg PO TID 02/23/18 04/13/18 RX: HYDROcodone/Acet 5/325 mg 0.5 tab PO QPM 02/23/18 04/13/18 [[place] 5-325 mg] RX: HYDROcodone/Acet 5/325 mg 1 tab PO QAM 02/23/18 04/13/18 [[place] 5-325 mg] RX: Linaclotide [Linzess] 145 mcg PO DAILY 02/23/18 04/13/18 RX: OLANZapine [Zyprexa] 2.5 mg PO DAILY 02/23/18 04/13/18 RX: PARoxetine HCl [Paroxetine HCl] 40 mg PO DAILY 02/23/18 04/13/18 RX: clonazePAM [Klonopin] 1 mg PO TID 02/23/18 04/13/18 RX: Buspirone HCl [Buspar] 7.5 mg PO BID 04/13/18 04/13/18 RX: Metoprolol [Lopressor] 12.5 mg PO BID 04/13/18 04/13/18 Previous Rx's Medication Instructions Recorded RX: Atorvastatin [Lipitor] 40 mg PO HS #30 tablet 02/25/18 RX: Clopidogrel [Plavix] 75 mg PO DAILY #30 tablet 02/25/18 RX: Isosorbide MONOnitrate (24 HR) 30 mg PO DAILY 30 Days #30 04/15/18 [Imdur] tab.er.24h Hydrocortisone/Pramoxine 1 pump RC TID #1 foam 05/02/18 [Proctofoam-Hc 1%-1% Foam] RX: Meclizine [Antivert] 25 mg PO TID #30 tablet 05/17/18 Hyoscyamine SL [Levsin SL] 0.125 mg SL Q4HR PRN #7 tab.subl 08/01/18 RX: Meclizine [Antivert] 25 mg PO TID #30 tablet 09/10/18 Allergies Allergy/AdvReac Type Severity Reaction Status Date / Time ibuprofen Allergy Swelling Verified 08/28/18 13:48 of Lip/Tongue/Throat meperidine [From Demerol] Allergy Anaphylaxis Verified 08/28/18 13:48 All systems ED: reviewed and negative except as stated. Review of Systems: As Per HPI Constitutional: Denies: fever, chills Cardiovascular: Reports: chest pain. Denies: palpitations Respiratory: Reports: cough, dyspnea Gastrointestinal: Denies: abdominal pain, nausea, vomiting, diarrhea Genitourinary: Denies: dysuria Musculoskeletal: Denies: back pain, neck pain Neurological: Reports: headache. Denies: weakness, numbness, paresthesias Past Medical History - Past Medical History Attestation: Yes The following information was validated with the patient. 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 Absent: tenderness - Chest Chest inspection: Present: normal inspection, symmetric chest wall rise - Respiratory Respiratory exam: Present: other (Diminished breath sounds bilaterally with mild expiratory wheezing. No crackles.) - Cardiovascular Cardiovascular exam: Present: regular rate, normal rhythm, normal heart sounds - Abdominal Exam Abdominal exam: Present: soft, Non-Tender. Absent: distention - Extremities Exam Extremities exam: Present: normal inspection, full ROM. Absent: tenderness, pedal edema, calf tenderness - Neurological Exam Neurological exam: Present: alert, oriented X3 - Psychiatric Psychiatric exam: Present: normal affect, normal mood - Skin Skin exam: Present: warm, dry, intact, normal color Course Vital Signs Temperature 101.1 F H 11/04/18 21:04 Pulse Rate 106 11/04/18 21:04 Respiratory Rate 20 11/04/18 21:04 Blood Pressure 128/84 11/04/18 21:04 O2 Sat by Pulse Oximetry 97 11/04/18 21:04 Temperature 101.1 F H 11/04/18 21:04 Pulse Rate 106 11/04/18 21:04 Respiratory Rate 20 11/04/18 21:04 Blood Pressure 128/84 11/04/18 21:04 O2 Sat by Pulse Oximetry 97 11/04/18 21:04 Oxygen Delivery Oxygen Delivery Room Air Medical Decision Making - [facility] Narrative Medical decision making narrative: Patient presenting with dyspnea and productive cough for 2 days. She has a fever here of 101.1 degrees Fahrenheit. She is tachycardic with heart rate 106 and oxygenating 97% on room air. We will obtain EKG, 2 view chest x-ray, give her trouble DuoNeb treatment, obtain CBC, BMP, troponin, BNP, d-dimer she is low risk for pulmonary embolism however unable to PERC her out secondary to tachycardia and age. Migraine cocktail with Benadryl and Reglan. 22:00 D-dimer elevated. We will obtain CT a chest to evaluate for pulmonary embolism. Chest x-ray without acute cardiopulmonary process. Patient states she has some improvement and shortness of breath after DuoNeb treatment. She is still tachycardic. Receiving IV fluids. Troponin and BNP is normal. No acute is chemic changes on EKG. 23:30 CTA was a limited study secondary to contrast load. There is no central or proximal segmental pulmonary embolism. There is scattered areas of atelectasis without focal airspace consolidation. Patient complains of 2 days of cough and she has a fever. She is still tachycardic as well. We will send blood cultures. Lactate is normal. Suspect this is all related to upper respiratory disease, developing pneumonia. We will start azithromycin and ceftriaxone. We will also give her Solu-Medrol. Patient is also hypoxic. She was dropped to 89% on room air. She does not have home oxygen. Hospitalist has been consultation for admission. 23:50 Discussed with hospitalist who accepts admission. Influenza is negative. Patient is remaining medically stable. She will be admitted for COPD exacerbation, possible developing pneumonia if she has fevers tachycardia and productive cough, and hypoxia. - Medical Records Medical records reviewed: Yes I reviewed the patient's medical records. - Lab Data Lab results reviewed: Yes I reviewed the patient's lab results. Result diagrams: 11/04/18 21:21 11/04/18 21:21 Lab Results 11/04/18 11/04/18 11/04/18 Range/Units 21:21 21:21 21:21 WBC 7.2 (4.3-11.1) K/mcL RBC 4.19 (3.82-4.97) M/mcL Hgb 13.3 (11.5-15.4) g/dL Hct 38.6 (35.3-44.9) % MCV 92.1 (83.0-100.0) fL MCH 31.7 (28.0-33.3) pg MCHC 34.5 (31.6-35.5) g/dL RDW 13.4 (11.5-14.5) % Plt Count 248 (140-400) K/mcL MPV 8.9 L (9.4-12.4) fL Immature Gran % 0.3 (0-4) % Seg Neutrophils % 80.7 % Lymphocytes % 8.5 % Monocytes % 9.7 % Eosinophils % 0.4 % Basophils % 0.4 % Neutrophils # 5.8 (1.6-8.9) K/mcL Lymphocytes # 0.6 (0.6-4.6) K/mcL Monocytes # 0.7 (0.0-1.3) K/mcL Eosinophils # 0.0 (0.0-0.6) K/mcL Basophils # 0.0 (0.0-0.2) K/mcL D-Dimer 1634 H (0-500) ng/mLFEU Lactic Acid 0.9 (0.5-2.2) mmol/L - Radiology Data Radiology results reviewed: Yes I reviewed the patient's radiology results. Chest X-Ray 11/04/18 21:09 IMPRESSION: No acute cardiopulmonary disease. D/ / Fercho Sethi MD / Fercho Sethi MD Interpreting Provider: Fercho Sethi MD Chest CTA 11/04/18 22:04 IMPRESSION: 1. Pulmonary artery evaluation is limited due to contrast bolus timing; within these limitations, there is no central or proximal segmental pulmonary embolism. 2. Scattered areas of atelectasis without focal airspace consolidation. 3. Moderate hiatal hernia. D/ / 11/04/2018 22:53:43 Lv Hall / jese Interpreting Provider: Lv Hall - EKG Data EKG #1 EKG attestation: Yes I reviewed and interpreted this EKG. EKG results narrative: EKG obtained at 2108 reviewed shows sinus tachycardia with heart rate 111. NV interval 145. QRS duration 84. QTC 458. No ST elevation or depression. Compared to old EKG on 09/10/2018 which shows rate 97. No acute changes. Attestation Statement - Attestation Attestation: Resident Attestation: I examined this patient and my medical decision making was reviewed with the Resident Physician. I agree with the documented findings, disposition and treatment plan as described except to the extent set forth below. We independently had [id number] contact with the patient. Patient complaint of multiple complaints. Patient has worsening shortness of breath over the last couple of days with associated migraine which she states she feels like her typical migraine but has not had relief with migraine medications. Patient has also been experiencing generalized body aches. Patient will undergo further evaluation for shortness of breath as well as undergo migraine treatment. Patient with significant improvement in symptoms. She did have an elevated d-dimer and CT of the chest was not optimal but does not show central pulmonary embolus. Patient has remained tachycardic and is febrile. Reported areas of atelectasis concerning for possible pneumonia. Influenza was negative. Patient did become hypoxic during her stable resting in bed and drop down to 89%. On my evaluation of her she dropped down to 91% while talking. Concern for ambulation trial and hypoxia. At this point patient will be started on antibiotics, blood cultures obtained, oxygen supplementation as needed. Patient will require admission at this time.
[2018-11-04] MEDS ORDERED: Isovue-370 500 ML BOTTLE IVP ONE (22:04)
[2018-11-04] MEDS ORDERED: Azithromycin 500 MG in D5% in Water 250 ML IVPB ONE (23:33)
[2018-11-04] MEDS ORDERED: cefTRIAXone 1,000 MG in Water for inj. (sterile) 20 ML 10 ML IVP ONE (23:33)
[2018-11-04] MEDS ORDERED: methylPREDNISolone 125 MG/2 ML VIAL IVP ONE (23:34)
[2018-11-05] MEDS ORDERED: Acetaminophen 325 MG TABLET PO ONE (00:29)
[2018-11-05] MEDS ORDERED: Nitroglycerin 0.4 MG TAB.SUBL SL PRN (00:58)
[2018-11-05] MEDS: *HR* Heparin 5,000 UNIT/ML VIAL SQ SCH ×4 (02:18→20:19)
[2018-11-05] MEDS ORDERED: *HR* HYDROcodone/Acet 5/325 mg TABLET PO ONE (02:34)
[2018-11-05] MEDS: Acetaminophen/Butalbital/CaffeineTABLET PO PRN ×2 (02:44→17:31)
[2018-11-05 04:11] LABS: Alanine Aminotransferase 13 Units/L (7-52); Albumin 3.8 g/dL (3.5-5.7); Albumin/Globulin Ratio 1.5 (1.1-2.2); Alkaline Phosphatase 127 Units/L (34-104); Aspartate Amino Transferase 14 Units/L (13-39); BUN/Creatinine Ratio 10 (6-26); Bilirubin,Total 0.3 mg/dL (0.3-1.0); Blood Urea Nitrogen 9 mg/dL (6-20); Carbon Dioxide 23 mEq/L (23-29); Chloride 103 mEq/L (98-107); Globulin 2.6 g/dL (2.4-3.5); Glucose 141 mg/dL (70-105); Osmolality,Calculated 279 (280-300); Sodium 134 mEq/L (136-145); Total Protein 6.4 g/dL (6.4-8.9); eGFR For Non-African Americans > 60 (> 60)
[2018-11-05 04:20] LABS: Basophils % 0.3 %; Eosinophils % 0.1 %; Hematocrit 39.7 % (35.3-44.9); Hemoglobin 13.4 g/dL (11.5-15.4); Immature Granulocytes % 0.4 % (0-4); Lymphocytes # 0.4 K/mcL (0.6-4.6); Mean Corpuscular HGB Conc 33.8 g/dL (31.6-35.5); Mean Corpuscular Hemoglobin 31.4 pg (28.0-33.3); Mean Platelet Volume 9.1 fL (9.4-12.4); Monocytes # 0.2 K/mcL (0.0-1.3); Platelet Count 234 K/mcL (140-400); Red Blood Count 4.27 M/mcL (3.82-4.97); Red Cell Distribution Width 13.5 % (11.5-14.5); Segmented Neutrophils % 91.2 %
[2018-11-05] MEDS: Ipratropium/Albuterol Neb 3 ML IH SCH ×4 (04:53→22:42)
[2018-11-05] MEDS ORDERED: MethylPREDNISolone 40 MG/ML VIAL IVP SCH (06:00)
--- NOTE | 2018-11-05 08:08 | Internal Med History&Physical ---
Date of Encounter: 11/05/18 Time of Encounter: 04:00 Internal Medicine - H&P: HPI Chief complaint: Shortness of breath History of present illness: Ms. Meade is a 48 year old female with past medical history including COPD, not on oxygen, migraine, hypertension, hyperlipidemia, TIA, and vertigo who presented with chief complaint of shortness of breath since yesterday. Patient complains of productive cough of yellow sputum since yesterday which is new for her. She also complains of progressively worsening shortness of breath that was not relieved by her albuterol inhaler. She also notes substernal chest pain aggravated with deep inspiration. Due to worsening dyspnea upon exertion she called EMS to take her here for further evaluation. She denies fevers at home. She denies cardiac stent placement or DVT or PE. She denies lightheadedness, nausea, vomiting, diaphoresis, abdominal pain, diarrhea. She is also complaining of her typical migraine headache with vertigo. She has no new symptoms, denies unilateral weakness or paresthesias or vision changes. On arrival patient was noted to be febrile with a temperature 101. She was hemodynamically stable but otherwise tachycardic. Return workup was notable for a normal white count with an elevated d-dimer of over 1600. A CTA of the chest was performed which showed no evidence of PE. Patient admitted for possible community-acquired pneumonia and COPD exacerbation. Past Med Surg Social Fam HX - Past Medical History Medical history: COPD, GERD, hyperlipidemia, hypertension, TIA Additional medical history: pain management patient Psychiatric history: anxiety, bipolar, depression - Past Surgical History Surgical History: cholecystectomy, knee replacement, other, hysterectomy Additional surgical history: tonsillectomy, adenoidectomy, tubal, ablation - Social History Smoking Status: Current every day smoker Smokeless Tobacco Status: No (1.5-2packs/day) Alcohol use: none Drug use: none - Family History Father Hx Family Cardiac Disorders: Yes (CABG) Hx Family Endocrine Disorder: Yes (DIABETES) Hx Family Medical Disorders: Yes (DM) Mother Hx Family Respiratory Disorders: Yes (COPD) Hx Family Medical Disorders: Yes (DM) Internal Medicine - H&P: Meds Albuterol Sulfate [Proair Hfa] 2 puff IH Q4-6H PRN 11/25/16 [History] Budesonide/Formoterol 160/4.5 [Symbicort 160/4.5] 2 puff IH BIDR 11/25/16 [History] Cyclobenzaprine [Flexeril] 10 mg PO TID PRN 11/25/16 [History] Diclofenac Sodium [Voltaren] 1 appl TP QID 11/25/16 [History] Nitroglycerin [Nitrostat] 0.4 mg SL AD PRN 11/25/16 [History] Omeprazole [PriLOSEC] 40 mg PO DAILY 11/25/16 [History] Gabapentin [Neurontin] 800 mg PO TID 02/23/18 [History] HYDROcodone/Acet 5/325 mg [Sadorus 5-325 mg] 1 tab PO BID 02/23/18 [History] PARoxetine HCl [Paroxetine HCl] 40 mg PO DAILY 02/23/18 [History] clonazePAM [Klonopin] 1 mg PO TID 02/23/18 [History] Atorvastatin [Lipitor] 40 mg PO HS #30 tablet 02/25/18 [Rx] Clopidogrel [Plavix] 75 mg PO DAILY #30 tablet 02/25/18 [Rx] Buspirone HCl [Buspar] 7.5 mg PO TID 04/13/18 [History] Calcium Carb, Citrate/Vit D3 [Calcium + D3 ER Tablet] 1 each PO DAILY 11/05/18 [History] Linaclotide [Linzess] 145 mcg PO DAILY 11/05/18 [History] Meclizine [Antivert] 25 mg PO TID PRN 11/05/18 [History] Allergy/AdvReac Type Severity Reaction Status Date / Time ibuprofen Allergy Swelling Verified 08/28/18 13:48 of Lip/Tongue/Throat meperidine [From Demerol] Allergy Anaphylaxis Verified 08/28/18 13:48 All Systems PM: A 10-system review of systems was performed and is negative for pertinent findings except as documented above in the HPI. - Constitutional Constitutional: no chills, no fever(s), no night sweats - EENT Eyes: no change in vision, no discharge, no pain, no photophobia Ears: no ear discharge, no ear pain, no tinnitus Nose, mouth and throat: no dysphagia, no nasal discharge, no neck pain, no sore throat - Cardiovascular Cardiovascular ROS IM: no chest pain, no diaphoresis, no dyspnea, no lightheadedness, no palpitations, no syncope - Respiratory Respiratory: no cough, no dyspnea, no wheezing, no excessive phlegm production - Gastrointestinal Gastrointestinal: no abdominal pain, no diarrhea, no hematemesis, no hematochezia, no melena, no nausea, no vomiting - Genitourinary Genitourinary: no change in urinary stream, no dysuria, no flank pain, no hematuria - Musculoskeletal Musculoskeletal ROS IM: no numbness, no tingling - Integumentary Integumentary IM: no rash, no unusual bruising - Neurological Neurological ROS: no confusion, no convulsions, no focal weakness, no numbness, no tingling, no tremor(s) - Hematologic/Lymphatic Hematologic/Lymphatic: no easy bruising - Constitutional Vitals: Temp Pulse Resp BP Pulse Ox 97.0 F L 85 18 141/88 94 11/05/18 07:19 11/05/18 07:19 11/05/18 07:19 11/05/18 07:19 11/05/18 07:19 Exam: General: Alert and oriented 3 lying in bed in no acute distress Skin:Normal color, no rash, no lesions. HEENT:EOM, pupils equal, round and reactive. Cardiovascular:Normal S1 & S2, no rubs, murmurs or gallops. No JVD. Pulse regular. Lungs:Normal breath sounds, no wheezes or crackles. Abdomen:Soft, non-tender, no rigidity. Extremities:No deformity, no edema or tenderness, no joint swelling or clubbing. Neurological:Normal cognition and motor skills. Pulses:Carotid and radial pulses normal +2. Rest of the physical exam is non contributory Internal Med - H&P Results - Labs CBC & Chem 7: 11/05/18 03:25 11/05/18 03:25 Labs: Short CBC 11/04/18 11/05/18 Range/Units 21:21 03:25 WBC 7.2 7.7 (4.3-11.1) K/mcL Hgb 13.3 13.4 (11.5-15.4) g/dL Hct 38.6 39.7 (35.3-44.9) % Plt Count 248 234 (140-400) K/mcL Neutrophils # 5.8 7.0 (1.6-8.9) K/mcL BMP 11/04/18 11/05/18 21:21 03:25 Sodium 133 L 134 L Potassium 3.9 4.0 Chloride 103 103 Carbon Dioxide 23 23 BUN 10 9 Creatinine 0.93 0.88 Glucose 105 141 H Calcium 9.0 9.0 Cardiac Enzymes 11/04/18 11/05/18 Range/Units 21:21 03:25 Troponin I < 0.03 < 0.03 (< 0.04) ng/mL Liver Function 11/05/18 Range/Units 03:25 Total Bilirubin 0.3 (0.3-1.0) mg/dL AST 14 (13-39) Units/L ALT 13 (7-52) Units/L Alkaline Phosphatase 127 H (34-104) Units/L Albumin 3.8 (3.5-5.7) g/dL - Impressions ITS Impressions Chest X-Ray 11/04/18 21:09 IMPRESSION: No acute cardiopulmonary disease. D/ / Fercho Sethi MD / Fercho Sethi MD Interpreting Provider: Fercho Sethi MD Chest CTA 11/04/18 22:04 IMPRESSION: 1. Pulmonary artery evaluation is limited due to contrast bolus timing; within these limitations, there is no central or proximal segmental pulmonary embolism. 2. Scattered areas of atelectasis without focal airspace consolidation. 3. Moderate hiatal hernia. D/ / 11/04/2018 22:53:43 Lv Hall / jese Interpreting Provider: Lv Hall - Assessment and plan (1) Shortness of breath Current Visit: Yes Status: Acute Assessment and plan: Patient presents with acute shortness of breath likely secondary to COPD exacerbation and pneumonia. CTA showed no clear evidence of a PE. Patient currently stable from a respiratory standpoint. -Continue with O2 support -Continue with DuoNeb's and steroids for possible COPD exacerbation -Continue with antibiotics for possible pneumonia. - We will obtain a respiratory infectious panel (2) Pneumonia Current Visit: Yes Status: Acute Assessment and plan: Patient admitted for shortness of breath. Found to have fever. Chest x-ray and CTA showed no clear evidence of pneumonia. Possibly atypical. -We will obtain respiratory infectious panel -Continue antibiotics -Follow-up urine Legionella and strep antigen -Follow blood cultures Qualifiers: Pneumonia type: due to unspecified organism Laterality: bilateral Lung location: unspecified part of lung Qualified Code(s): J18.9 - Pneumonia, unspecified organism (3) COPD exacerbation Current Visit: Yes Status: Acute Assessment and plan: Mild COPD exacerbation -Duo nebs -Steroids -Antibiotics (4) Sepsis Current Visit: Yes Status: Acute Assessment and plan: Patient meets 3 out of 4 SIRS criteria with suspected underlying pneumonia. Initial lactic acid within normal limits. Patient received fluid bolus in the ED. Heart rate has improved. -Continue with fluid support -Continue with antibiotics -Follow-up blood cultures Qualifiers: Sepsis type: sepsis due to unspecified organism Qualified Code(s): A41.9 - Sepsis, unspecified organism (5) DVT prophylaxis Current Visit: No Status: Acute Assessment and plan: Heparin - Time Spent With Patient Total time spent is greater than 50% in coordination of care (as documented) at patient's floor/unit and/or counseling patient:
[2018-11-05] MEDS: Gabapentin 400 MG CAPSULE PO SCH ×3 (08:30→20:18)
[2018-11-05] MEDS ORDERED: 0.9 % Sodium Chloride 1,000 ML IVC SCH (08:30)
[2018-11-05] MEDS: DICLOFENAC SODIUM 1% TP SCH ×4 (08:57→20:21)
[2018-11-05] MEDS ORDERED: (Linaclotide [Linzess] 145 MCG) PO SCH (09:00)
[2018-11-05] MEDS ORDERED: cefTRIAXone 1,000 MG in Water for inj. (sterile) 20 ML 10 ML IVP SCH (09:00)
[2018-11-05] MEDS ORDERED: Azithromycin 500 MG in D5% in Water 250 ML IVPB SCH (09:00)
[2018-11-05] MEDS ORDERED: Pantoprazole 40 MG VIAL IVP SCH (09:00)
[2018-11-05 09:54] LABS: Adenovirus Not Detected (Not Detect); Bordetella Pertussis Not Detected (Not Detect); Chlamydophila pneumoniae Not Detected (Not Detect); Coronavirus 229E Not Detected (Not Detect); Coronavirus HKU1 Not Detected (Not Detect); Coronavirus NL63 Not Detected (Not Detect); Coronavirus OC43 Not Detected (Not Detect); Human Metapneumovirus Not Detected (Not Detect); Human Rhinovirus/Enterovirus Not Detected (Not Detect); Influenza A Subtype 2009 H1 DETECTED (Not Detect); Influenza A Untypeable Not Detected (Not Detect); Influenza B Not Detected (Not Detect); Mycoplasma pneumoniae Not Detected (Not Detect); Parainfluenza Virus 1 Not Detected (Not Detect); Parainfluenza Virus 2 Not Detected (Not Detect); Parainfluenza Virus 3 Not Detected (Not Detect); Parainfluenza Virus 4 Not Detected (Not Detect); Respiratory Syncytial Virus Not Detected (Not Detect)
--- NOTE | 2018-11-05 10:44 | Event Note ---
Date of Encounter: 11/05/18 Time of Encounter: 09:00 H&P reviewed. Patient with history of COPD, hypertension, TIA is admitted for mild COPD exacerbation. No evidence of PE or pneumonia on CTA. Will check respiratory viral panel and monitor on azithromycin without Rocephin. Continue steroid and scheduled bronchodilators. Resume home inhalers. Anticipate discharge tomorrow.
[2018-11-05] MEDS: *HR* HYDROcodone/Acet 5/325 mg TABLET PO SCH ×2 (12:02→20:18)
[2018-11-05] MEDS: clonazePAM 1 MG TABLET PO SCH ×2 (15:52→20:18)
[2018-11-05] MEDS ORDERED: Nicotine 21 MG PATCH.TD24 TD SCH (17:15)
[2018-11-05] MEDS: MethylPREDNISolone 40 MG/ML VIAL IVP SCH (17:28)
[2018-11-05] MEDS ORDERED: Budesonide/Formoterol 160/4.5 1 PUFF INH IH SCH (22:00)
[2018-11-06] MEDS: Ipratropium/Albuterol Neb 3 ML IH SCH ×2 (04:54→10:28)
[2018-11-06] MEDS: MethylPREDNISolone 40 MG/ML VIAL IVP SCH (05:57)
[2018-11-06] MEDS: *HR* Heparin 5,000 UNIT/ML VIAL SQ SCH (05:57)
[2018-11-06 07:31] VITALS: BP 139/84
--- NOTE | 2018-11-06 09:26 | Discharge Summary ---
- NOTES TO OUTPATIENT PROVIDER Notes to Outpatient Provider: Patient was admitted for mild COPD exacerbation in the setting of influenza A infection. Improved with IV steroid and tamiflu. Will be discharged home on 5 day course of tamilfu and steroid. Orders not resulted at time of discharge: Pending orders 11/04/18 21:08 ECG 12 lead ECG [ECG] Stat 11/04/18 21:21 Culture,Blood [BC] Stat 11/05/18 00:54 Culture,Sputum with Gram Stain [RM] Routine 11/05/18 02:22 ECG 12 lead ECG [ECG] Stat Date of Encounter: 11/06/18 Time of Encounter: 07:45 - Discharge Diagnosis (1) DVT prophylaxis Priority: Secondary Status: Acute (2) Pneumonia Priority: Secondary Status: Ruled-out Qualifiers: Pneumonia type: due to unspecified organism Laterality: bilateral Lung location: unspecified part of lung Qualified Code(s): J18.9 - Pneumonia, unspecified organism (3) Sepsis Priority: Secondary Status: Ruled-out Qualifiers: Sepsis type: sepsis due to unspecified organism Qualified Code(s): A41.9 - Sepsis, unspecified organism (4) COPD exacerbation Priority: Primary Status: Acute (5) Shortness of breath Priority: Secondary Status: Acute (6) Influenza A Priority: Secondary Status: Acute Hospital course: Ms. Meade is a 48 year old female who was admitted for mild COPD exacerbation in the setting of influenza A infection. Improved with IV steroid and tamiflu. Will be discharged home on 5 day course of tamilfu and steroid. Discharge discussed with: patient, nurse - Time Spent with Patient Total time spent providing and/or coordinating discharge services: 24 mins - Discharge Medications Prescriptions: GuaiFENesin/Dextromethorphan [Robitussin/DM] 5 ml PO Q6HR PRN #1 syrup PRN Reason: Cough Nicotine Patch [Nicoderm] 21 mg TD DAILY #14 patch.[id number] Oseltamivir [Tamiflu] 75 mg PO BID 4 Days #8 capsule predniSONE [PredniSONE] 40 mg PO DAILY 4 Days #8 tablet Home Medications: Albuterol Sulfate [Proair Hfa] 2 puff IH Q4-6H PRN 11/25/16 [History] Budesonide/Formoterol 160/4.5 [Symbicort 160/4.5] 2 puff IH BIDR 11/25/16 [History] Cyclobenzaprine [Flexeril] 10 mg PO TID PRN 11/25/16 [History] Diclofenac Sodium [Voltaren] 1 appl TP QID 11/25/16 [History] Nitroglycerin [Nitrostat] 0.4 mg SL AD PRN 11/25/16 [History] Omeprazole [PriLOSEC] 40 mg PO DAILY 11/25/16 [History] Gabapentin [Neurontin] 800 mg PO TID 02/23/18 [History] HYDROcodone/Acet 5/325 mg [Bunch 5-325 mg] 1 tab PO BID 02/23/18 [History] PARoxetine HCl [Paroxetine HCl] 40 mg PO DAILY 02/23/18 [History] clonazePAM [Klonopin] 1 mg PO TID 02/23/18 [History] Atorvastatin [Lipitor] 40 mg PO HS #30 tablet 02/25/18 [Rx] Clopidogrel [Plavix] 75 mg PO DAILY #30 tablet 02/25/18 [Rx] Buspirone HCl [Buspar] 7.5 mg PO TID 04/13/18 [History] Calcium Carb, Citrate/Vit D3 [Calcium + D3 ER Tablet] 1 each PO DAILY 11/05/18 [History] Linaclotide [Linzess] 145 mcg PO DAILY 11/05/18 [History] Meclizine [Antivert] 25 mg PO TID PRN 11/05/18 [History] GuaiFENesin/Dextromethorphan [Robitussin/DM] 5 ml PO Q6HR PRN #1 syrup 11/06/18 [Rx] Nicotine Patch [Nicoderm] 21 mg TD DAILY #14 patch.[email or web address] 11/06/18 [Rx] Oseltamivir [Tamiflu] 75 mg PO BID 4 Days #8 capsule 11/06/18 [Rx] predniSONE [PredniSONE] 40 mg PO DAILY 4 Days #8 tablet 11/06/18 [Rx] Allergies/Adverse Reactions: Allergy/AdvReac Type Severity Reaction Status Date / Time ibuprofen Allergy Swelling Verified 08/28/18 13:48 of Lip/Tongue/Throat meperidine [From Demerol] Allergy Anaphylaxis Verified 08/28/18 13:48 Date of admission: 11/05/18 00:03 Primary care physician: Mora Reza Consults: 11/05/18 00:54 Consult to Nurse Navigator [CONS] Routine Comment: - Constitutional Vitals: Temp Pulse Resp BP Pulse Ox 97.4 F L 71 16 139/84 95 11/06/18 07:30 11/06/18 07:30 11/06/18 07:30 11/06/18 07:30 11/06/18 07:30 Exam: General: Alert and oriented, not in acute distress. Cardiovascular:Normal S1 & S2, No JVD. Pulse regular. Lungs: clear to auscultation, no wheezes/rales Abdomen:Soft, non-tender, no rigidity. Extremities:No deformity or swelling Neurological:Normal cognition and motor skills. Non-focal - Patient Status Disposition: Home, Self-Care Condition: Fair Functional capacity at discharge: independent ambulation Overall status at discharge: patient is progressing back to baseline - Discharge Instructions Instructions: Chronic Obstructive Pulmonary Disease (DC), Chronic Hypertension (DC) Follow Up With: Mora Reza [Primary Care Provider] - Additional Instructions: Complete a course of PO Prednisone and tamiflu Nicotine patch provided Follow up with PCP outpatient - Diet and Activity Activity: resume usual activities as tolerated Diet: regular diet
--- NOTE | 2018-11-07 16:35 | Electrocardiograph Report ---
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
--- NOTE | 2018-11-07 17:05 | Electrocardiograph Report ---
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
== END 2018-11-06 10:55 | disposition home or self-care (01) ==
LOC: EMEROOARM 21:00 → 3BNU 21:00 → SUATTDRO 11-05 00:03 → 3BNU 11-05 00:52
PROVIDERS: ADMIT Internal Medicine; ATTEND Internal Medicine

== ENCOUNTER 2019-06-20 19:40 | Observation (INO) ==
[2019-06-20] MEDS ORDERED: Isovue-370 500 ML BOTTLE IVP ONE (20:04)
[2019-06-20 20:18] LABS: Basophils % 0.4 %; Eosinophils # 0.1 K/mcL (0.0-0.6); Eosinophils % 1.2 %; Hematocrit 38.8 % (35.3-44.9); Hemoglobin 13.4 g/dL (11.5-15.4); Immature Granulocytes % 0.4 % (0-4); Lymphocytes # 2.3 K/mcL (0.6-4.6); Lymphocytes % 23.8 %; Mean Corpuscular HGB Conc 34.5 g/dL (31.6-35.5); Mean Corpuscular Hemoglobin 32.5 pg (28.0-33.3); Mean Corpuscular Volume 94.2 fL (83.0-100.0); Mean Platelet Volume 9.4 fL (9.4-12.4); Monocytes # 0.7 K/mcL (0.0-1.3); Monocytes % 7.5 %; Neutrophils # 6.4 K/mcL (1.6-8.9); Platelet Count 330 K/mcL (140-400); Red Blood Count 4.12 M/mcL (3.82-4.97); Red Cell Distribution Width 13.9 % (11.5-14.5); Segmented Neutrophils % 66.7 %; White Blood Count 9.5 K/mcL (4.3-11.1)
[2019-06-20 20:29] LABS: Prothrombin Time 11.4 Seconds (9.4-12.1)
[2019-06-20 20:32] LABS: Activated Partial Thrombo Time 30.4 Seconds (26.0-36.0)
[2019-06-20 20:36] LABS: BUN/Creatinine Ratio 9 (6-26); Blood Urea Nitrogen 9 mg/dL (6-20); Carbon Dioxide 22 mEq/L (23-29); Chloride 106 mEq/L (98-107); Glucose 113 mg/dL (70-105); Osmolality,Calculated 281 (280-300); Potassium 3.4 mEq/L (3.5-5.1); Sodium 136 mEq/L (136-145); Troponin I < 0.03 ng/mL (< 0.04); eGFR For African Americans > 60 (> 60); eGFR For Non-African Americans > 60 (> 60)
--- NOTE | 2019-06-20 21:43 | Emergency Department Note ---
Disposition Clinical Impression: Weakness Chest pain Qualifiers: Chest pain type: unspecified Qualified Code(s): R07.9 - Chest pain, unspecified Back pain Qualifiers: Back pain location: thoracic back pain Chronicity: acute Back pain laterality: midline Qualified Code(s): M54.6 - Pain in thoracic spine Disposition: Still a Patient Condition: Good Time of Disposition: 21:57 General Adult HPI - General Chief complaint: ED Chest Pain Stated complaint: chest pain Time Seen by Provider: 06/20/19 19:49 Source: patient, EMS Mode of arrival: EMS Limitations: no limitations Nursing Notes Reviewed: Yes Vital Signs Reviewed: Yes - History of Present Illness HPI Narrative: 48-year-old female with significant past medical history of COPD, hypertension, hypercholesteremia presenting to the emergency department chief complaint of chest pain. Patient states last evening she was not feeling well. Had substernal chest pain radiating directly into her back with associated diaphoresis and nausea and vomiting. Last evening she also had an episode where she felt very weak and lightheaded. Patient had been seen approximately 6 years ago and had a catheterization completed that did not show any coronary artery disease. She did have an abnormal stress test approximately 1-1/2 years ago but this was stated to be most likely due to her obesity and not an actual cardiac lesion. Patient denies any recent illnesses or fevers. She does states she is having substernal chest pain radiating into her back at this time. Pain Scale: 10 - Related Data Home Medications Medication Instructions Recorded Confirmed Albuterol Sulfate [Proair Hfa] 2 puff IH Q4-6H PRN 11/25/16 06/21/19 Budesonide/Formoterol 160/4.5 2 puff IH BIDR 11/25/16 06/21/19 [Symbicort 160/4.5] Cyclobenzaprine [Flexeril] 10 mg PO TID PRN 11/25/16 06/21/19 Diclofenac Sodium [Voltaren] 1 appl TP QID PRN 11/25/16 06/21/19 Nitroglycerin [Nitrostat] 0.4 mg SL AD PRN 11/25/16 06/21/19 Omeprazole [PriLOSEC] 40 mg PO DAILY 11/25/16 06/21/19 Gabapentin [Neurontin] 800 mg PO TID 02/23/18 06/21/19 PARoxetine HCl [Paroxetine HCl] 40 mg PO DAILY 02/23/18 06/21/19 Buspirone HCl [Buspar] 7.5 mg PO BID 04/13/18 06/21/19 Calcium Carb, Citrate/Vit D3 1 each PO DAILY 11/05/18 06/21/19 [Calcium + D3 ER Tablet] Linaclotide [Linzess] 145 mcg PO DAILY 11/05/18 06/21/19 Meclizine [Antivert] 25 mg PO TID PRN 11/05/18 06/21/19 Meloxicam 15 mg PO DAILY 06/21/19 06/21/19 Metoprolol [Lopressor] 25 mg PO DAILY 06/21/19 06/21/19 SUMAtriptan succinate [Imitrex] 50 mg PO Q2H PRN 06/21/19 06/21/19 clonazePAM [Clonazepam] 0.5 mg PO TID PRN 06/21/19 06/21/19 Allergies Allergy/AdvReac Type Severity Reaction Status Date / Time ibuprofen Allergy Swelling Verified 06/21/19 07:40 of Lip/Tongue/Throat meperidine [From Demerol] Allergy Anaphylaxis Verified 06/21/19 07:40 All systems ED: reviewed and negative except as stated. Constitutional: Denies: fever Eyes: Reports: as per HPI ENT ED: Reports: as per HPI Cardiovascular: Reports: chest pain Respiratory: Reports: as per HPI Gastrointestinal: Reports: nausea Genitourinary: Reports: as per HPI Musculoskeletal: Reports: back pain Integumentary: Reports: as per HPI Neurological: Reports: as per HPI Psychiatric: Reports: as per HPI Endocrine: Reports: as per HPI Hematological/Lymphatic: Reports: as per HPI Allergic/Immunologic: Reports: as per HPI Past Medical History - Past Medical History Attestation: Yes The following information was validated with the patient. 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 Absent: respiratory distress, wheezes - Cardiovascular Cardiovascular exam: Present: regular rate, normal rhythm, normal heart sounds - Abdominal Exam Abdominal exam: Present: soft, Non-Tender. Absent: distention, guarding, rebound - Extremities Exam Extremities exam: Present: full ROM - Neurological Exam Neurological exam: Present: alert, oriented X3 - Psychiatric Psychiatric exam: Present: normal affect - Skin Skin exam: Present: warm Course Course Narrative: 48-year-old female presenting to the emergency department chief complaint of chest pain. In the room she is alert and oriented 3 and hemodynamically stable. Patient is describing chest pain radiating into her back. Otherwise physical exam is benign. She does describe associated nausea, diaphoresis and vomiting when the chest pain started. Concern for cardiac etiology at this time. Due to patient's chest pain radiating into her back patient will need a CTA to rule out dissection. Disposition most likely admission the pending results. Patient agrees with this plan. - Reevaluation(s) Reevaluation #1: Patient's laboratory analysis benign. CTA pending. At this time will sign the patient out to Dr. Sorenson and Dr. Morley pending CTA evaluation. Patient remains alert and oriented 3 and hemodynamically stable. Patient agrees with this p geovani. Vital Signs Temperature 98.6 F 06/20/19 19:41 Pulse Rate 82 06/20/19 19:41 Respiratory Rate 16 06/20/19 19:41 Blood Pressure 130/94 06/20/19 19:41 O2 Sat by Pulse Oximetry 99 06/20/19 19:41 Temperature 98.6 F 06/20/19 19:41 Pulse Rate 87 06/20/19 20:00 Respiratory Rate 16 06/20/19 20:00 Blood Pressure 130/94 06/20/19 20:00 O2 Sat by Pulse Oximetry 99 06/20/19 20:00 Oxygen Delivery Oxygen Delivery Room Air Medical Decision Making - Lab Data Result diagrams: 06/21/19 01:55 06/21/19 01:55 Lab Results 06/20/19 06/20/19 06/20/19 Range/Units 19:55 19:55 19:55 WBC 9.5 (4.3-11.1) K/mcL RBC 4.12 (3.82-4.97) M/mcL Hgb 13.4 (11.5-15.4) g/dL Hct 38.8 (35.3-44.9) % MCV 94.2 (83.0-100.0) fL MCH 32.5 (28.0-33.3) pg MCHC 34.5 (31.6-35.5) g/dL RDW 13.9 (11.5-14.5) % Plt Count 330 (140-400) K/mcL MPV 9.4 (9.4-12.4) fL Immature Gran % 0.4 (0-4) % Seg Neutrophils % 66.7 % Lymphocytes % 23.8 % Monocytes % 7.5 % Eosinophils % 1.2 % Basophils % 0.4 % Neutrophils # 6.4 (1.6-8.9) K/mcL Lymphocytes # 2.3 (0.6-4.6) K/mcL Monocytes # 0.7 (0.0-1.3) K/mcL Eosinophils # 0.1 (0.0-0.6) K/mcL Basophils # 0.0 (0.0-0.2) K/mcL PT 11.4 (9.4-12.1) Seconds INR 1.0 APTT 30.4 (26.0-36.0) Seconds Sodium 136 (136-145) mEq/L Potassium 3.4 L (3.5-5.1) mEq/L Chloride 106 (98-107) mEq/L Carbon Dioxide 22 L (23-29) mEq/L BUN 9 (6-20) mg/dL Creatinine 0.96 (0.60-1.20) mg/dL Est GFR ( Amer) > 60 (> 60) Est GFR (Non-Af Amer) > 60 (> 60) BUN/Creatinine Ratio 9 (6-26) Glucose 113 H (70-105) mg/dL Calculated Osmolality 281 (280-300) Calcium 9.0 (8.6-10.3) mg/dL Troponin I < 0.03 (< 0.04) ng/mL - EKG Data EKG #1 EKG attestation: Yes I reviewed and interpreted this EKG. EKG results narrative: Sinus rhythm. 88 beats for minute. [place] interval 162, QRS 107, QTC 442. No sign of acute ST segment elevation or ischemia. Attestation Statement - Attestation Attestation: I examined this patient and my medical decision-making was reviewed with the Resident Physician. I agree with the documented findings, disposition and treatment plan as described except to the extent set forth below. Patient does have complaints of chest pain. The patient states chest pains when going on intermittently for a couple of days. It is centralized, does radiate to her back times. Patient however is resting comfortably here in the emergency room. Patient did have an EKG, I do agree with the resident's interpretation of his EKG. Patient at this point in time is currently pending CTA, troponins are negative, case was turned over to Dr. Stover, please see his dictation for further disposition of patient.
--- NOTE | 2019-06-20 22:06 | Emergency Department Note ---
Disposition Clinical Impression: Weakness Chest pain Qualifiers: Chest pain type: unspecified Qualified Code(s): R07.9 - Chest pain, unspecified Back pain Qualifiers: Back pain location: thoracic back pain Chronicity: acute Back pain laterality: midline Qualified Code(s): M54.6 - Pain in thoracic spine Disposition: Still a Patient Condition: Good Time of Disposition: 22:45 General Adult HPI - General Chief complaint: ED Chest Pain Stated complaint: chest pain Time Seen by Provider: 06/20/19 19:49 Source: patient, EMS Mode of arrival: EMS Limitations: no limitations Nursing Notes Reviewed: Yes Vital Signs Reviewed: Yes - History of Present Illness HPI Narrative: Patient signed out by Dr. Morales and Dr. David pending CTA results. Patient is a 48-year-old female with history COPD, hypertension, hyperlipidemia, presenting with chief complaint of chest pain that is substernal radiating into her back associated with diaphoresis, nausea and vomiting. She had a catheterization 6 years ago that did not show coronary artery disease. She had an abnormal stress test one and half years ago. Please see complete documentation by Dr. Morales for full history and physical examination, ROS, assessment and plan. Pain Scale: 10 - Related Data Home Medications Medication Instructions Recorded Confirmed Albuterol Sulfate [Proair Hfa] 2 puff IH Q4-6H PRN 11/25/16 06/21/19 Budesonide/Formoterol 160/4.5 2 puff IH BIDR 11/25/16 06/21/19 [Symbicort 160/4.5] Cyclobenzaprine [Flexeril] 10 mg PO TID PRN 11/25/16 06/21/19 Diclofenac Sodium [Voltaren] 1 appl TP QID PRN 11/25/16 06/21/19 Nitroglycerin [Nitrostat] 0.4 mg SL AD PRN 11/25/16 06/21/19 Omeprazole [PriLOSEC] 40 mg PO DAILY 11/25/16 06/21/19 Gabapentin [Neurontin] 800 mg PO TID 02/23/18 06/21/19 PARoxetine HCl [Paroxetine HCl] 40 mg PO DAILY 02/23/18 06/21/19 Buspirone HCl [Buspar] 7.5 mg PO BID 04/13/18 06/21/19 Calcium Carb, Citrate/Vit D3 1 each PO DAILY 11/05/18 06/21/19 [Calcium + D3 ER Tablet] Linaclotide [Linzess] 145 mcg PO DAILY 11/05/18 06/21/19 Meclizine [Antivert] 25 mg PO TID PRN 11/05/18 06/21/19 Meloxicam 15 mg PO DAILY 06/21/19 06/21/19 Metoprolol [Lopressor] 25 mg PO DAILY 06/21/19 06/21/19 SUMAtriptan succinate [Imitrex] 50 mg PO Q2H PRN 06/21/19 06/21/19 clonazePAM [Clonazepam] 0.5 mg PO TID PRN 06/21/19 06/21/19 Allergies Allergy/AdvReac Type Severity Reaction Status Date / Time ibuprofen Allergy Swelling Verified 06/21/19 07:40 of Lip/Tongue/Throat meperidine [From Demerol] Allergy Anaphylaxis Verified 06/21/19 07:40 Constitutional: Denies: fever Eyes: Reports: as per HPI ENT ED: Reports: as per HPI Cardiovascular: Reports: chest pain Respiratory: Reports: as per HPI Gastrointestinal: Reports: nausea Genitourinary: Reports: as per HPI Musculoskeletal: Reports: back pain Integumentary: Reports: as per HPI Neurological: Reports: as per HPI Psychiatric: Reports: as per HPI Endocrine: Reports: as per HPI Hematological/Lymphatic: Reports: as per HPI Allergic/Immunologic: Reports: as per HPI Past Medical History - Past Medical History Medical history: Reports: GERD, hyperlipidemia, hypertension, TIA, COPD Surgical history: Reports: cholecystectomy, knee replacement, other, hysterectomy Psychiatric history: Reports: anxiety, bipolar, depression [employer]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 history, 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 - Social History Smoking Status: Current every day smoker Smokeless Tobacco Status: No (1.5-2packs/day) Alcohol use: Reports: none Drug use: Reports: none Physical Exam - General Limitations: no limitations General appearance: alert, in no apparent distress Course Vital Signs Temperature 98.6 F 06/20/19 19:41 Pulse Rate 82 06/20/19 19:41 Respiratory Rate 16 06/20/19 19:41 Blood Pressure 130/94 06/20/19 19:41 O2 Sat by Pulse Oximetry 99 06/20/19 19:41 Temperature 98.6 F 06/20/19 19:41 Pulse Rate 68 06/20/19 21:54 Respiratory Rate 16 06/20/19 21:54 Blood Pressure 171/109 06/20/19 21:54 O2 Sat by Pulse Oximetry 99 06/20/19 21:54 Oxygen Delivery Oxygen Delivery Room Air Medical Decision Making - MDM Narrative Medical decision making narrative: Please see Dr. Morales complete assessment and plan for full ED course. CTA is pending at this time. If this is negative for dissection, patient will be given aspirin and admitted for ACS workup and she has significant risk factors for ACS. 22:35 CTA negative for dissection. Patient will receive aspirin. She is still complaining of intermittent substernal chest pain that radiates into her back. Hospitalist has been paged for admission for ACS workup. 22:[address] Bridges who accepts admission. WIll also trial nitroglycerin. - Medical Records Medical records reviewed: Yes I reviewed the patient's medical records. - Lab Data Lab results reviewed: Yes I reviewed the patient's lab results. Result diagrams: 06/21/19 01:55 06/21/19 01:55 Lab Results 06/20/19 06/20/19 06/20/19 Range/Units 19:55 19:55 19:55 WBC 9.5 (4.3-11.1) K/mcL RBC 4.12 (3.82-4.97) M/mcL Hgb 13.4 (11.5-15.4) g/dL Hct 38.8 (35.3-44.9) % MCV 94.2 (83.0-100.0) fL MCH 32.5 (28.0-33.3) pg MCHC 34.5 (31.6-35.5) g/dL RDW 13.9 (11.5-14.5) % Plt Count 330 (140-400) K/mcL MPV 9.4 (9.4-12.4) fL Immature Gran % 0.4 (0-4) % Seg Neutrophils % 66.7 % Lymphocytes % 23.8 % Monocytes % 7.5 % Eosinophils % 1.2 % Basophils % 0.4 % Neutrophils # 6.4 (1.6-8.9) K/mcL Lymphocytes # 2.3 (0.6-4.6) K/mcL Monocytes # 0.7 (0.0-1.3) K/mcL Eosinophils # 0.1 (0.0-0.6) K/mcL Basophils # 0.0 (0.0-0.2) K/mcL PT 11.4 (9.4-12.1) Seconds INR 1.0 APTT 30.4 (26.0-36.0) Seconds Sodium 136 (136-145) mEq/L Potassium 3.4 L (3.5-5.1) mEq/L Chloride 106 (98-107) mEq/L Carbon Dioxide 22 L (23-29) mEq/L BUN 9 (6-20) mg/dL Creatinine 0.96 (0.60-1.20) mg/dL Est GFR ( Amer) > 60 (> 60) Est GFR (Non-Af Amer) > 60 (> 60) BUN/Creatinine Ratio 9 (6-26) Glucose 113 H (70-105) mg/dL Calculated Osmolality 281 (280-300) Calcium 9.0 (8.6-10.3) mg/dL Troponin I < 0.03 (< 0.04) ng/mL - Radiology Data Radiology results reviewed: Yes I reviewed the patient's radiology results. Chest X-Ray 06/20/19 20:35 IMPRESSION: No acute process. D/ / Amadou Brower MD / Amadou Brower MD Interpreting Provider: Amadou Brower MD Dissection 06/20/19 22:13 IMPRESSION: No evidence of thoracic or abdominal aortic dissection. Upper lung emphysema. Moderate-sized hiatal hernia, similar when compared to the previous exam. There is a small amount of free pelvic fluid, unusual for the patient's age, the etiology which is unclear. That raise the possibility of intra pelvic or intra-abdominal inflammation, but the etiology of that inflammation is not detected on this CT. Close clinical follow-up recommended. D/ / Chadd Deluna MD / Chadd Deluna MD Interpreting Provider: Chadd Deluna MD Attestation Statement - Attestation Attestation: I have seen this patient with the resident physician, I have personally evaluated this patient. I had reviewed the chart and document dictation by the resident physician and aM in agreement with the information documented by the resident physician. Please see documentation by the resident physician for complete chart including past medical history, family medical history, review of systems, current history and physical and laboratory and imaging studies. I was present for all procedures, provided direct supervision for all procedures, was present for the entirety of all procedures and provided direct guidance during the procedures. Please see documentation by the resident physician for any procedures performed. I have reviewed all interpretations of EKGs, and reviewed all EKGs performed on patient's as well. I have also reviewed reports of imaging as provided by radiology.
[2019-06-20] MEDS ORDERED: Aspirin 81 MG TAB.CHEW PO STA (22:38)
[2019-06-20] MEDS ORDERED: Nitroglycerin 0.4 MG TAB.SUBL SL PRN (22:43)
[2019-06-21] MEDS ORDERED: Naloxone 0.4 MG/ML INJ IVP PRN (01:29)
[2019-06-21] MEDS ORDERED: clonazePAM 1 MG TABLET PO PRN (01:36)
--- NOTE | 2019-06-21 01:54 | Internal Med History&Physical ---
Date of Encounter: 06/21/19 Time of Encounter: 01:00 Internal Medicine - H&P: HPI Chief complaint: Chest Pain, Shortness of breath Admitted From: Home Plans for Post Hospital Care: Home History of present illness: Ms. Meade is a 48 year old female with past medical history significant for hypertension, hyperlipidemia, COPD, TIA, GERD, IBS, hernia, colon polyps, chronic low back pain, anxiety, bipolar, depression, and tobacco abuse who presents for complaints of intermittent substernal chest tightness radiating st raight into her back for past few days getting progressively worse. States pain is also associated with nausea, vomiting, lightheadedness, and shortness of breath. Reports pain is worse with coughing and deep breathing. Reports she has been having increased shortness of breath and non productive cough over past few weeks. ER obtained chest x-ray which showed no acute process. ER also obtained CT dissection study which showed no evidence of thoracic or abdominal aortic dissection, upper lung emphysema, moderate sized hiatal hernia similar when compared to previous exam, small amount of free pelvic fluid which is unusual for patient's age and etiology is unclear but raises possibility of intrapelvic or intra-abdominal inflammation with etiology not detected on CT recommending close clinical follow-up. ER reported EKG as sinus rhythm with no sign of acute ST segment elevation or ischemia. Patient received aspirin while in ER but refused nitroglycerin. Currently reports improvement in her symptoms but reports pain and shortness of breath is still present but not as severe. Currently denies any headache, numbness, tingling, abdominal pain, nausea, bowel or bladder changes. Reports having cardiac cath around six years ago which she reports being normal. Also had echocardiogram completed in February 2018 showing 60% EF. Also had stress test completed in April 2018 showing perfusion defect versus artifact. Follows regularly with her PCP, Gastroenterology, Neurology, and Pulmonary. Denies wearing any home oxygen. Reports continuing to smoke cigarettes daily. Past Med Surg Social Fam HX - Past Medical History Medical history: COPD, GERD, hyperlipidemia, hypertension, TIA, other Additional medical history: chronic low back pain, IBS, hiatal hernia, colon polyps Psychiatric history: anxiety, bipolar, depression - Past Surgical History Surgical History: cholecystectomy, knee replacement, other, hysterectomy Additional surgical history: Bilat knees, right knee x2 - Social History Smoking Status: Current every day smoker Smokeless Tobacco Status: No (1.5-2packs/day) Alcohol use: none Drug use: none - Family History Father Hx Family Cardiac Disorders: Yes (CABG) Hx Family Endocrine Disorder: Yes (DIABETES) Mother Hx Family Respiratory Disorders: Yes (COPD) Internal Medicine - H&P: Meds Albuterol Sulfate [Proair Hfa] 2 puff IH Q4-6H PRN 11/25/16 [History] Budesonide/Formoterol 160/4.5 [Symbicort 160/4.5] 2 puff IH BIDR 11/25/16 [History] Cyclobenzaprine [Flexeril] 10 mg PO TID PRN 11/25/16 [History] Diclofenac Sodium [Voltaren] 1 appl TP QID 11/25/16 [History] Nitroglycerin [Nitrostat] 0.4 mg SL AD PRN 11/25/16 [History] Omeprazole [PriLOSEC] 40 mg PO DAILY 11/25/16 [History] Gabapentin [Neurontin] 800 mg PO TID 02/23/18 [History] PARoxetine HCl [Paroxetine HCl] 40 mg PO DAILY 02/23/18 [History] clonazePAM [Klonopin] 1 mg PO TID 02/23/18 [History] Buspirone HCl [Buspar] 7.5 mg PO TID 04/13/18 [History] Calcium Carb, Citrate/Vit D3 [Calcium + D3 ER Tablet] 1 each PO DAILY 11/05/18 [History] Linaclotide [Linzess] 145 mcg PO DAILY 11/05/18 [History] Meclizine [Antivert] 25 mg PO TID PRN 11/05/18 [History] Nicotine Patch [Nicoderm] 21 mg TD DAILY #14 patch.td24 11/06/18 [Rx] HYDROcodone/Acet 7.5/325 mg [[place] 7.5-325 mg] 1 tab PO Q6HR PRN 06/20/19 [History] Allergy/AdvReac Type Severity Reaction Status Date / Time ibuprofen Allergy Swelling Verified 01/20/19 09:59 of Lip/Tongue/Throat meperidine [From Demerol] Allergy Anaphylaxis Verified 01/20/19 09:59 All Systems PM: A 10-system review of systems was performed and is negative for pertinent findings except as documented above in the HPI. - Constitutional Vitals: Temp Pulse Resp BP Pulse Ox 97.7 F 76 16 111/78 97 06/21/19 00:25 06/21/19 00:25 06/21/19 00:25 06/21/19 00:25 06/21/19 00:25 Exam: General: Alert and oriented. Skin:Normal color, no rash, no lesions. HEENT:Pupils equal, round and reactive. Cardiovascular:Heart sounds distant, no rubs, murmurs or gallops. No JVD. Pulse regular. Chest pain not reproducible on palpation. Lungs:Breath sounds decreased, no wheezes or crackles. Abdomen:Soft, non-tender, no rigidity. Extremities:No deformity, no edema or tenderness, no joint swelling or clubbing. Neurological:Normal cognition and motor skills. Pulses:Carotid and radial pulses normal +2. Rest of the physical exam is non contributory. Internal Med - H&P Results - Labs CBC & Chem 7: 06/21/19 01:55 06/21/19 01:55 Labs: Short CBC 06/20/19 Range/Units 19:55 WBC 9.5 (4.3-11.1) K/mcL Hgb 13.4 (11.5-15.4) g/dL Hct 38.8 (35.3-44.9) % Plt Count 330 (140-400) K/mcL Neutrophils # 6.4 (1.6-8.9) K/mcL BMP 06/20/19 19:55 Sodium 136 Potassium 3.4 L Chloride 106 Carbon Dioxide 22 L BUN 9 Creatinine 0.96 Glucose 113 H Calcium 9.0 Cardiac Enzymes 06/20/19 Range/Units 19:55 Troponin I < 0.03 (< 0.04) ng/mL - Impressions ITS Impressions Chest X-Ray 06/20/19 20:35 IMPRESSION: No acute process. D/ / Amadou Brower MD / Amadou Brower MD Interpreting Provider: Amadou Brower MD Dissection 06/20/19 22:13 IMPRESSION: No evidence of thoracic or abdominal aortic dissection. Upper lung emphysema. Moderate-sized hiatal hernia, similar when compared to the previous exam. There is a small amount of free pelvic fluid, unusual for the patient's age, the etiology which is unclear. That raise the possibility of intra pelvic or intra-abdominal inflammation, but the etiology of that inflammation is not detected on this CT. Close clinical follow-up recommended. D/ / Chadd Deluna MD / Chadd Deluna MD Interpreting Provider: Chadd Deluna MD - Assessment and Plan (1) Chest pain Current Visit: Yes Status: Acute Assessment and plan: Reports intermittent substernal chest tightness radiating straight into her back for past few days getting progressively worse. Possibly related to increased cough as she reports worse with cough or deep breathing. ER completed CT Dissection study which showed no evidence of thoracic or abdominal aortic dissection. Initial troponin in ER negative, serial troponins ordered. Continuous cardiac monitoring. Qualifiers: Chest pain type: unspecified Qualified Code(s): R07.9 - Chest pain, unspecified (2) COPD exacerbation Current Visit: Yes Status: Suspected Assessment and plan: Reports she has been having increased shortness of breath and non productive cough over past few weeks getting progressively worse. Will start scheduled duonebs and daily prednisone. Monitor respiratory status closely, doesn't appear to need antibiotics at this time. (3) Shortness of breath Current Visit: Yes Status: Acute Assessment and plan: Possibly related to suspected COPD exacerbation or related to cardiac etiology. Plan as stated above. (4) Hypokalemia Current Visit: Yes Status: Acute Assessment and plan: Minimally decreased at 3.4 Replacement ordered. Repeat labs ordered. (5) Abnormal CT scan Current Visit: Yes Status: Acute Assessment and plan: ER obtained CT dissection study which showed no evidence of thoracic or abdominal aortic dissection, upper lung emphysema, moderate sized hiatal hernia similar when compared to previous exam, small amount of free pelvic fluid which is unusual for patient's age and etiology is unclear but raises possibility of intrapelvic or intra-abdominal inflammation with etiology not detected on CT re commending close clinical follow-up. Denies any abdominal pain. Monitor for any changes that may warrant further testing. (6) Depression with anxiety Current Visit: Yes Status: Chronic Assessment and plan: Continue home medications once verified. (7) Bipolar disorder Current Visit: Yes Status: Chronic Assessment and plan: Continue home medications once verified. Qualifiers: Qualified Code(s): F31.9 - Bipolar disorder, unspecified (8) Chronic low back pain Current Visit: Yes Status: Chronic Assessment and plan: Continue home medications once verified. Qualifiers: Back pain laterality: unspecified Sciatica presence: unspecified whether sciatica present Qualified Code(s): M54.5 - Low back pain; G89.29 - Other chronic pain - Time Spent With Patient Total time spent is greater than 50% in coordination of care (as documented) at patient's floor/unit and/or counseling patient:
[2019-06-21] MEDS: Ipratropium/Albuterol Neb 3 ML IH SCH ×5 (02:17→22:28)
[2019-06-21] MEDS: *HR* HYDROcodone/Acet 5/325 mg TABLET PO PRN ×2 (02:34→20:41)
[2019-06-21] MEDS: Gabapentin 400 MG CAPSULE PO SCH ×4 (02:34→20:42)
[2019-06-21 03:09] LABS: Basophils % 0.5 %; Eosinophils # 0.2 K/mcL (0.0-0.6); Eosinophils % 2.3 %; Hematocrit 37.3 % (35.3-44.9); Hemoglobin 12.4 g/dL (11.5-15.4); Immature Granulocytes % 0.2 % (0-4); Lymphocytes # 2.6 K/mcL (0.6-4.6); Lymphocytes % 30.6 %; Mean Corpuscular HGB Conc 33.2 g/dL (31.6-35.5); Mean Corpuscular Volume 96.1 fL (83.0-100.0); Mean Platelet Volume 9.6 fL (9.4-12.4); Monocytes # 0.7 K/mcL (0.0-1.3); Monocytes % 8.4 %; Neutrophils # 4.9 K/mcL (1.6-8.9); Platelet Count 291 K/mcL (140-400); Red Blood Count 3.88 M/mcL (3.82-4.97); Red Cell Distribution Width 14.1 % (11.5-14.5); White Blood Count 8.4 K/mcL (4.3-11.1)
[2019-06-21 03:33] LABS: BUN/Creatinine Ratio 10 (6-26); Blood Urea Nitrogen 9 mg/dL (6-20); Calcium 8.4 mg/dL (8.6-10.3); Carbon Dioxide 24 mEq/L (23-29); Chloride 106 mEq/L (98-107); Glucose 94 mg/dL (70-105); Osmolality,Calculated 282 (280-300); Potassium 3.6 mEq/L (3.5-5.1); Sodium 137 mEq/L (136-145); eGFR For African Americans > 60 (> 60); eGFR For Non-African Americans > 60 (> 60)
[2019-06-21] MEDS: *HR* Heparin 5,000 UNIT/ML VIAL SQ SCH ×2 (05:45→18:22)
[2019-06-21] MEDS ORDERED: Regadenoson 0.4 MG/5 ML SYRINGE IVP ONE (08:56)
[2019-06-21] MEDS: Cholecalciferol (D-3) 1,000 UNIT (25MCG) TABLET PO SCH (09:45)
[2019-06-21] MEDS: predniSONE 20 MG TABLET PO SCH (09:46)
[2019-06-21] MEDS: (Linaclotide [Linzess] 145 MCG) PO SCH (09:47)
[2019-06-21] MEDS: Budesonide/Formoterol 160/4.5 1 PUFF INH IH SCH ×2 (10:36→22:28)
--- NOTE | 2019-06-21 11:12 | Event Note ---
Date of Encounter: 06/21/19 Time of Encounter: 11:08 Ms. Meade is a 48 year old female with past medical history significant for hypertension, hyperlipidemia, COPD, TIA, GERD, IBS, hernia, colon polyps, chronic low back pain, anxiety, bipolar, depression, and tobacco abuse who presents for complaints of intermittent substernal chest tightness radiating straight into her back for past few days getting progressively worse. States pain is also associated with nausea, vomiting, lightheadedness, and shortness of breath. Reports pain is worse with coughing and deep breathing. Reports she has been having increased shortness of breath and non productive cough over past few weeks. ER obtained chest x-ray which showed no acute process. ER also obtained CT dissection study which showed no evidence of thoracic or abdominal aortic dissection, upper lung emphysema, moderate sized hiatal hernia similar when compared to previous exam, small amount of free pelvic fluid which is unusual for patient's age and etiology is unclear but raises possibility of intrapelvic or intra-abdominal inflammation with etiology not detected on CT recommending close clinical follow-up. Serial troponin was negative. Patient stated that her symptoms are more consistent with COPD. She was started on bronchodilators and oral steroids. He also reported a productive cough, will order respiratory panel, urine antigen for Legionella and pneumococcal antigen, will also start patient on azithromycin. Close monitoring respiratory symptoms.
[2019-06-21] MEDS ORDERED: Azithromycin 500 MG in 0.9 % Sodium Chloride 250 ML IVPB SCH (12:00)
[2019-06-21] MEDS: Nicotine 21 MG PATCH.TD24 TD SCH (13:28)
[2019-06-21 15:52] LABS: Adenovirus Not Detected (Not Detect); Bordetella Pertussis Not Detected (Not Detect); Chlamydophila pneumoniae Not Detected (Not Detect); Coronavirus 229E Not Detected (Not Detect); Coronavirus HKU1 Not Detected (Not Detect); Coronavirus NL63 Not Detected (Not Detect); Coronavirus OC43 Not Detected (Not Detect); Human Metapneumovirus Not Detected (Not Detect); Human Rhinovirus/Enterovirus Not Detected (Not Detect); Influenza A Subtype 2009 H1 Not Detected (Not Detect); Influenza A Untypeable Not Detected (Not Detect); Influenza B Not Detected (Not Detect); Mycoplasma pneumoniae Not Detected (Not Detect); Parainfluenza Virus 1 Not Detected (Not Detect); Parainfluenza Virus 2 Not Detected (Not Detect); Parainfluenza Virus 3 Not Detected (Not Detect); Parainfluenza Virus 4 Not Detected (Not Detect); Respiratory Syncytial Virus Not Detected (Not Detect)
[2019-06-21] MEDS: clonazePAM 0.5 MG TABLET PO PRN (17:36)
[2019-06-21] MEDS ORDERED: SUMAtriptan 6 MG/0.5 ML SQ PRN (21:48)
[2019-06-22] MEDS: Ipratropium/Albuterol Neb 3 ML IH SCH ×4 (03:55→22:50)
[2019-06-22] MEDS: *HR* Heparin 5,000 UNIT/ML VIAL SQ SCH ×2 (06:21→16:23)
--- NOTE | 2019-06-22 06:39 | Electrocardiograph Report ---
[facility] [employer] 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
[2019-06-22] MEDS: Gabapentin 400 MG CAPSULE PO SCH ×3 (08:46→20:37)
[2019-06-22] MEDS: predniSONE 20 MG TABLET PO SCH (08:47)
[2019-06-22] MEDS: Cholecalciferol (D-3) 1,000 UNIT (25MCG) TABLET PO SCH (08:47)
[2019-06-22] MEDS: Nicotine 21 MG PATCH.TD24 TD SCH (08:47)
[2019-06-22] MEDS: (Linaclotide [Linzess] 145 MCG) PO SCH (08:49)
[2019-06-22] MEDS: Budesonide/Formoterol 160/4.5 1 PUFF INH IH SCH ×2 (10:51→22:50)
--- NOTE | 2019-06-22 10:59 | Internal Med Progress Note ---
Hospitalist Progress Note - Encounter Date of Encounter: 06/22/19 Time of Encounter: 10:56 - Subjective Interval History: Ms. Meade is a 48 year old female with past medical history significant for hypertension, hyperlipidemia, COPD, TIA, GERD, IBS, hernia, colon polyps, chronic low back pain, anxiety, bipolar, depression, and tobacco abuse who presents for complaints of intermittent substernal chest tightness radiating straight into her back for past few days getting progressively worse. ER also obtained CT dissection study which showed no evidence of thoracic or abdominal aortic dissection, upper lung emphysema, moderate sized hiatal hernia similar when compared to previous exam, small amount of free pelvic fluid which is unusual for patient's age and etiology is unclear but raises possibility of intrapelvic or intra-abdominal inflammation with etiology not detected on CT recommending close clinical follow-up. Serial troponin was negative. Patient stated that her symptoms are more consistent with COPD. She was started on bronchodilators and oral steroids. Rrespiratory panel was negative, urine antigen for Legionella and pneumococcal antigen negative. Z-pack ordered as well as oral steroid. Pt seen and examined, chest pain and sob are improving. - Exam Vitals: Temp Pulse Resp BP Pulse Ox 98.2 F 68 16 104/67 92 06/22/19 07:48 06/22/19 07:48 06/22/19 10:52 06/22/19 07:48 06/22/19 10:52 Exam: General: Alert and oriented. Skin:Normal color, no rash, no lesions. HEENT:Pupils equal, round and reactive. Cardiovascular:Heart sounds distant, no rubs, murmurs or gallops. No JVD. Pulse regular. Chest pain not reproducible on palpation. Lungs:Breath sounds decreased, no wheezes or crackles. Abdomen:Soft, non-tender, no rigidity. Extremities:No deformity, no edema or tenderness, no joint swelling or clubbing. Neurological:Normal cognition and motor skills. Pulses:Carotid and radial pulses normal +2. Rest of the physical exam is non contributory. - Assessment and Plan (1) Chest pain Current Visit: Yes Status: Acute Assessment and Plan: 06/21 Reports intermittent substernal chest tightness radiating straight into her back for past few days getting progressively worse. Possibly related to increased cough as she reports worse with cough or deep breathing. ER completed CT Dissection study which showed no evidence of thoracic or abdominal aortic dissection. Initial troponin in ER negative, serial troponins ordered. Continuous cardiac monitoring. 06/22 Serial troponin was negative. ECG has no acute changes. Chest pain and sob improved with current treatment, will continue. plan dc tomorrow if pt continues doing well. (2) COPD exacerbation Current Visit: Yes Status: Suspected Assessment and Plan: Reports she has been having increased shortness of breath and non productive cough over past few weeks getting progressively worse. Respiratory panel was negative. IV azithromycin was changed to oral. Started scheduled duonebs and daily prednisone. (3) Shortness of breath Current Visit: Yes Status: Acute Assessment and Plan: Possibly related to suspected COPD exacerbation or related to cardiac etiology. Symptoms are improving. Plan as stated above. (4) Hypokalemia Current Visit: Yes Status: Resolved (5) Depression with anxiety Current Visit: Yes Status: Chronic Assessment and Plan: Continue home medications. (6) Bipolar disorder Current Visit: Yes Status: Chronic Assessment and Plan: Continue home medications. (7) Chronic low back pain Current Visit: Yes Status: Chronic Assessment and Plan: Continue home medications. DVT Prophylaxis: Heparin sq. - Time Spent with Patient Total time spent is greater than 50% in coordination of care (as documented) at patient's floor/unit and/or counseling patient: Greater than 35 minutes Plan of Care Discussed with: patient Internal Medicine: Result - Labs CBC & Chem 7: 06/21/19 01:55 06/21/19 01:55 - ABG Interpretation ABG results: PT/INR, D-dimer PT 11.4 Seconds (9.4-12.1) 06/20/19 19:55 Consult Discharge Plan - Plan Additional Instructions: Call [facility] in [place] when you get home to make arrangements for CPAP picker tender or delivery. #[phone]. Referrals: Mora Reza [Primary Care Provider] - 06/28/19 8:30 am (1) Chest pain Qualifiers: Chest pain type: unspecified Qualified Code(s): R07.9 - Chest pain, unspec ified (6) Bipolar disorder Qualifiers: Qualified Code(s): F31.9 - Bipolar disorder, unspecified (7) Chronic low back pain Qualifiers: Back pain laterality: unspecified Sciatica presence: unspecified whether sciatica present Qualified Code(s): M54.5 - Low back pain; G89.29 - Other chron ic pain
[2019-06-22] MEDS: *HR* HYDROcodone/Acet 5/325 mg TABLET PO PRN ×2 (12:05→20:36)
[2019-06-22] MEDS: clonazePAM 0.5 MG TABLET PO PRN (14:00)
[2019-06-22] MEDS: Methyl Salicylate/Menthol 57 APPL/57 GM TUBE TP PRN (17:18)
[2019-06-23] MEDS: Ipratropium/Albuterol Neb 3 ML IH SCH ×2 (03:37→10:38)
[2019-06-23] MEDS: *HR* Heparin 5,000 UNIT/ML VIAL SQ SCH (05:46)
[2019-06-23] MEDS: Methyl Salicylate/Menthol 57 APPL/57 GM TUBE TP PRN (06:48)
[2019-06-23 07:38] VITALS: BP 131/88
[2019-06-23] MEDS: Nicotine 21 MG PATCH.TD24 TD SCH (08:23)
[2019-06-23] MEDS: (Linaclotide [Linzess] 145 MCG) PO SCH (08:23)
[2019-06-23] MEDS: Cholecalciferol (D-3) 1,000 UNIT (25MCG) TABLET PO SCH (08:24)
[2019-06-23] MEDS: Gabapentin 400 MG CAPSULE PO SCH (08:25)
[2019-06-23] MEDS: predniSONE 20 MG TABLET PO SCH (08:25)
--- NOTE | 2019-06-23 08:39 | Discharge Summary ---
- NOTES TO OUTPATIENT PROVIDER Notes to Outpatient Provider: f/u with PCP within a week. Date of Encounter: 06/23/19 Time of Encounter: 08:33 - Discharge Diagnosis (1) Chest pain Priority: Primary Status: Resolved Qualifiers: Chest pain type: unspecified Qualified Code(s): R07.9 - Chest pain, unspecified (2) COPD exacerbation Priority: Primary Status: Acute (3) Shortness of breath Priority: Primary Status: Acute (4) Hypokalemia Priority: Primary Status: Resolved (5) Depression with anxiety Priority: Secondary Status: Chronic (6) Bipolar disorder Priority: Secondary Status: Chronic Qualifiers: Active/Remission status: remission status unspecified Qualified Code(s): F31.9 - Bipolar disorder, unspecified (7) Chronic low back pain Priority: Secondary Status: Chronic Qualifiers: Back pain laterality: unspecified Sciatica presence: unspecified whether sciatica present Qualified Code(s): M54.5 - Low back pain; G89.29 - Other chronic pain Hospital course: Ms. Meade is a 48 year old female with past medical history significant for hypertension, hyperlipidemia, COPD, TIA, GERD, IBS, hernia, colon polyps, chronic low back pain, anxiety, bipolar, depression, and tobacco abuse who presents for complaints of intermittent substernal chest tightness radiating straight into her back for past few days getting progressively worse. ER also obtained CT dissection study which showed no evidence of thoracic or abdominal aortic dissection, upper lung emphysema, moderate sized hiatal hernia similar when compared to previous exam, small amount of free pelvic fluid which is unusual for patient's age and etiology is unclear but raises possibility of intrapelvic or intra-abdominal inflammation with etiology not detected on CT recommending close clinical follow-up. Serial troponin was negative. Patient stated that her symptoms are more consistent with COPD. She was started on bronchodilators and oral steroids. Rrespiratory panel was negative, urine antigen for Legionella and pneumococcal antigen negative. Z-pack ordered as well as oral steroid. Patient chest pain and sob have improved with 3 days of treatment. She is chest pain free on the discharge day, tapering dose of steroid and oral azithromycin were ordered, she will f/u with PCP within a week. Discharge discussed with: patient Time spent discussing smoking cessation with patient: more than 10 minutes - Time Spent with Patient Total time spent providing and/or coordinating discharge services: Time spent: Greater than 30 minutes - Discharge Medications Prescriptions: New predniSONE [PredniSONE] 30 mg PO DAILY #18 tablet Azithromycin [Zithromax] 500 mg PO DAILY #5 tablet Continued Budesonide/Formoterol 160/4.5 [Symbicort 160/4.5] 2 puff IH BIDR Diclofenac Sodium [Voltaren] 1 appl TP QID PRN PRN Reason: Pain Nitroglycerin [Nitrostat] 0.4 mg SL AD PRN PRN Reason: Chest Pain Albuterol Sulfate [Proair Hfa] 2 puff IH Q4-6H PRN PRN Reason: Shortness Of Breath Omeprazole [PriLOSEC] 40 mg PO DAILY Cyclobenzaprine [Flexeril] 10 mg PO TID PRN PRN Reason: Muscle Spasm PARoxetine HCl [Paroxetine HCl] 40 mg PO DAILY Gabapentin [Neurontin] 800 mg PO TID Buspirone HCl [Buspar] 7.5 mg PO BID Linaclotide [Linzess] 145 mcg PO DAILY Calcium Carb, Citrate/Vit D3 [Calcium + D3 ER Tablet] 1 each PO DAILY Meclizine [Antivert] 25 mg PO TID PRN PRN Reason: Dizziness clonazePAM [Clonazepam] 0.5 mg PO TID PRN PRN Reason: Anxiety Meloxicam 15 mg PO DAILY Metoprolol [Lopressor] 25 mg PO DAILY SUMAtriptan succinate [Imitrex] 50 mg PO Q2H PRN PRN Reason: Headache Home Medications: Albuterol Sulfate [Proair Hfa] 2 puff IH Q4-6H PRN 11/25/16 [History] Budesonide/Formoterol 160/4.5 [Symbicort 160/4.5] 2 puff IH BIDR 11/25/16 [History] Cyclobenzaprine [Flexeril] 10 mg PO TID PRN 11/25/16 [History] Diclofenac Sodium [Voltaren] 1 appl TP QID PRN 11/25/16 [History] Nitroglycerin [Nitrostat] 0.4 mg SL AD PRN 11/25/16 [History] Omeprazole [PriLOSEC] 40 mg PO DAILY 11/25/16 [History] Gabapentin [Neurontin] 800 mg PO TID 02/23/18 [History] PARoxetine HCl [Paroxetine HCl] 40 mg PO DAILY 02/23/18 [History] Buspirone HCl [Buspar] 7.5 mg PO BID 04/13/18 [History] Calcium Carb, Citrate/Vit D3 [Calcium + D3 ER Tablet] 1 each PO DAILY 11/05/18 [History] Linaclotide [Linzess] 145 mcg PO DAILY 11/05/18 [History] Meclizine [Antivert] 25 mg PO TID PRN 11/05/18 [History] Meloxicam 15 mg PO DAILY 06/21/19 [History] Metoprolol [Lopressor] 25 mg PO DAILY 06/21/19 [History] SUMAtriptan succinate [Imitrex] 50 mg PO Q2H PRN 06/21/19 [History] clonazePAM [Clonazepam] 0.5 mg PO TID PRN 06/21/19 [History] Azithromycin [Zithromax] 500 mg PO DAILY #5 tablet 06/23/19 [Rx] predniSONE [PredniSONE] 30 mg PO DAILY #18 tablet 06/23/19 [Rx] Allergies/Adverse Reactions: Allergy/AdvReac Type Severity Reaction Status Date / Time ibuprofen Allergy Swelling Verified 06/21/19 07:40 of Lip/Tongue/Throat meperidine [From Demerol] Allergy Anaphylaxis Verified 06/21/19 07:40 Date of admission: 06/20/19 23:00 Primary care physician: Mora Reza Consults: 06/21/19 09:23 Consult to Nurse Navigator [CONS] Routine Comment: COPD Anticipated date of discharge: 06/23/19 - Constitutional Vitals: Temp Pulse Resp BP Pulse Ox 98.1 F 58 16 131/88 96 06/23/19 07:36 06/23/19 07:36 06/23/19 07:36 06/23/19 07:36 06/23/19 07:36 General appearance: Present: A&O X 3 Exam: General: Alert and oriented. Skin:Normal color, no rash, no lesions. HEENT:Pupils equal, round and reactive. Cardiovascular:Heart sounds distant, no rubs, murmurs or gallops. No JVD. Pulse regular. Chest pain not reproducible on palpation. Lungs:Breath sounds decreased, no wheezes or crackles. Abdomen:Soft, non-tender, no rigidity. Extremities:No deformity, no edema or tenderness, no joint swelling or clubbing. Neurological:Normal cognition and motor skills. Pulses:Carotid and radial pulses normal +2. Rest of the physical exam is non contributory. - Patient Status Disposition: Home, Self-Care Condition: Good Functional capacity at discharge: independent ambulation Overall status at discharge: patient is progressing back to baseline - Discharge Instructions Follow Up With: Mora Reza [Primary Care Provider] - 06/28/19 8:30 am Additional Instructions: Call [facility] in [place] when you get home to make arrangements for CPAP cigar packer and picker or delivery. #[phone]. - Diet and Activity Activity: increase activity as tolerated Diet: low fat, low cholesterol, low salt diet
[2019-06-23] MEDS ORDERED: Azithromycin 250 MG TABLET PO SCH (09:00)
[2019-06-23] MEDS: Budesonide/Formoterol 160/4.5 1 PUFF INH IH SCH (10:39)
== END 2019-06-23 10:50 | disposition home or self-care (01) ==
LOC: EMEROOARM 19:40 → 3BNU 19:40
PROVIDERS: ADMIT Internal Medicine; ATTEND Internal Medicine

== ENCOUNTER 2019-08-06 15:58 | Observation (INO) ==
[2019-08-06 17:42] LABS: Basophils % 0.3 %; Eosinophils # 0.2 K/mcL (0.0-0.6); Eosinophils % 2.2 %; Hematocrit 41.4 % (35.3-44.9); Immature Granulocytes % 0.1 % (0-4); Lymphocytes # 2.4 K/mcL (0.6-4.6); Lymphocytes % 31.6 %; Mean Corpuscular HGB Conc 33.8 g/dL (31.6-35.5); Mean Corpuscular Hemoglobin 33.1 pg (28.0-33.3); Mean Corpuscular Volume 97.9 fL (83.0-100.0); Mean Platelet Volume 9.1 fL (9.4-12.4); Monocytes # 0.5 K/mcL (0.0-1.3); Neutrophils # 4.4 K/mcL (1.6-8.9); Platelet Count 273 K/mcL (140-400); Red Blood Count 4.23 M/mcL (3.82-4.97); Red Cell Distribution Width 12.8 % (11.5-14.5); Segmented Neutrophils % 58.8 %; White Blood Count 7.6 K/mcL (4.3-11.1)
[2019-08-06 18:00] LABS: Prothrombin Time 10.8 Seconds (9.4-12.1)
[2019-08-06 18:02] LABS: Activated Partial Thrombo Time 31.2 Seconds (26.0-36.0)
[2019-08-06 18:04] LABS: BUN/Creatinine Ratio 9 (6-26); Blood Urea Nitrogen 8 mg/dL (6-20); Calcium 8.8 mg/dL (8.6-10.3); Carbon Dioxide 24 mEq/L (23-29); Chloride 104 mEq/L (98-107); Glucose 98 mg/dL (70-105); Osmolality,Calculated 280 (280-300); Potassium 3.8 mEq/L (3.5-5.1); Sodium 136 mEq/L (136-145); Troponin I < 0.03 ng/mL (< 0.04); eGFR For African Americans > 60 (> 60); eGFR For Non-African Americans > 60 (> 60)
[2019-08-06] MEDS ORDERED: Isovue-370 500 ML BOTTLE IVP ONE (18:29)
[2019-08-06] MEDS ORDERED: Aspirin 325 MG TABLET PO ONE (18:30)
[2019-08-06] MEDS ORDERED: Naloxone 0.4 MG/ML INJ IVP PRN (21:23)
[2019-08-06] MEDS ORDERED: Ringers Solution, Lactated 1,000 ML IVC SCH (21:30)
[2019-08-06] MEDS: Nicotine 14 MG PATCH.TD24 TD SCH (23:08)
[2019-08-07 00:14] LABS: Bilirubin,Urine Negative (Negative); Blood,Urine Negative (Negative); Clarity,Urine Clear (Clear); Color,Urine Yellow (Yellow); Glucose,Urine (UA) Normal (Normal); Ketones,Urine Negative (Negative); Leukocyte Esterase,Urine Negative (Negative); Nitrite,Urine Negative (Negative); Protein,Urine Negative (Neg-Trace); Specific Gravity,Urine 1.025 (1.010-1.025); Urobilinogen,Urine Normal (Normal)
[2019-08-07 00:24] LABS: Amphetamine Screen,Urine Negative ng/mL (Cutoff=1000); Barbiturate Screen,Urine Negative ng/mL (Cutoff=200); Benzodiazepines Screen,Urine Negative ng/mL (Cutoff=200); Cannabinoid Screen,Urine Negative ng/mL (Cutoff = 50); Cocaine Screen,Urine Negative ng/mL (Cutoff= 300); Opiate Screen,Urine Negative ng/mL (Cutoff=300); Phencyclidine Screen,Urine Negative ng/mL (Cutoff=25)
[2019-08-07] MEDS ORDERED: SUMAtriptan succinate 50 MG TABLET PO ONE (02:48)
[2019-08-07] MEDS ORDERED: Nitroglycerin 0.4 MG TAB.SUBL SL PRN (02:50)
[2019-08-07 04:02] LABS: Prothrombin Time 11.2 Seconds (9.4-12.1)
[2019-08-07 04:13] LABS: Alanine Aminotransferase 9 Units/L (7-52); Albumin 3.3 g/dL (3.5-5.7); Albumin/Globulin Ratio 1.5 (1.1-2.2); Alkaline Phosphatase 89 Units/L (34-104); Aspartate Amino Transferase 10 Units/L (13-39); BUN/Creatinine Ratio 10 (6-26); Bilirubin,Total 0.4 mg/dL (0.3-1.0); Blood Urea Nitrogen 8 mg/dL (6-20); C-Reactive Protein 8 mg/L (Less than 10); Calcium 8.5 mg/dL (8.6-10.3); Carbon Dioxide 25 mEq/L (23-29); Chloride 106 mEq/L (98-107); Chol/HDL Ratio 3.9 (0-4.9); Cholesterol 148 mg/dL (< 200); Ethanol < 10 mg/dL (Less than 10); Globulin 2.2 g/dL (2.4-3.5); Glucose 89 mg/dL (70-105); HDL Cholesterol 38 mg/dL (40-59); LDL Cholesterol,Calculated 85 mg/dL (0-99); Magnesium 2.1 mg/dL (1.6-2.6); Osmolality,Calculated 282 (280-300); Phosphorous 4.6 mg/dL (2.7-4.5); Potassium 3.7 mEq/L (3.5-5.1); Sodium 137 mEq/L (136-145); Total Protein 5.5 g/dL (6.4-8.9); Triglycerides 125 mg/dL (< 150); eGFR For African Americans > 60 (> 60); eGFR For Non-African Americans > 60 (> 60)
[2019-08-07 04:33] LABS: Thyroid Stimulating Hormone 0.732 mcIU/mL (0.340-5.600)
[2019-08-07] MEDS: *HR* HYDROcodone/Acet 5/325 mg TABLET PO PRN ×3 (04:55→22:10)
[2019-08-07] MEDS: Gabapentin 400 MG CAPSULE PO SCH ×3 (08:05→20:09)
[2019-08-07] MEDS: Nicotine 14 MG PATCH.TD24 TD SCH (08:05)
[2019-08-07] MEDS: SUMAtriptan succinate 50 MG TABLET PO PRN (08:05)
[2019-08-07 10:44] LABS: Estimated Average Glucose 114 mg/dl
[2019-08-07] MEDS: Aspirin 81 MG TAB.CHEW PO SCH (11:53)
[2019-08-07] MEDS: clonazePAM 0.5 MG TABLET PO PRN ×2 (12:40→20:24)
[2019-08-08] MEDS: *HR* HYDROcodone/Acet 5/325 mg TABLET PO PRN ×2 (04:00→08:18)
[2019-08-08] MEDS: SUMAtriptan succinate 50 MG TABLET PO PRN ×2 (04:03→08:18)
[2019-08-08 07:52] LABS: Basophils % 0.4 %; Eosinophils # 0.2 K/mcL (0.0-0.6); Eosinophils % 2.7 %; Hematocrit 38.5 % (35.3-44.9); Hemoglobin 12.9 g/dL (11.5-15.4); Immature Granulocytes % 0.3 % (0-4); Lymphocytes # 2.6 K/mcL (0.6-4.6); Lymphocytes % 32.7 %; Mean Corpuscular HGB Conc 33.5 g/dL (31.6-35.5); Mean Corpuscular Hemoglobin 33.2 pg (28.0-33.3); Mean Corpuscular Volume 99.2 fL (83.0-100.0); Monocytes # 0.7 K/mcL (0.0-1.3); Monocytes % 8.3 %; Neutrophils # 4.4 K/mcL (1.6-8.9); Nucleated Red Blood Cells 0.3 /100 WBC (0); Platelet Count 261 K/mcL (140-400); Red Blood Count 3.88 M/mcL (3.82-4.97); Red Cell Distribution Width 12.8 % (11.5-14.5); Segmented Neutrophils % 55.6 %; White Blood Count 7.9 K/mcL (4.3-11.1)
[2019-08-08 08:17] VITALS: BP 138/82
[2019-08-08] MEDS: Gabapentin 400 MG CAPSULE PO SCH (08:18)
[2019-08-08] MEDS: Nicotine 14 MG PATCH.TD24 TD SCH (08:19)
[2019-08-08] MEDS: Aspirin 81 MG TAB.CHEW PO SCH (08:19)
[2019-08-08] MEDS: clonazePAM 0.5 MG TABLET PO PRN (08:23)
[2019-08-08] MEDS ORDERED: FLU Vac QV 19-20 (6Month+)/PF 0.5 ML SYRINGE IM ONE (08:42)
== END 2019-08-08 11:11 | disposition home or self-care (01) ==
LOC: 2ANU 15:58 → EMEROOARM 15:58 → SUATTDRO 20:37 → 2ANU 21:23
PROVIDERS: ADMIT Family Medicine; ATTEND Internal Medicine

== ENCOUNTER 2021-07-01 08:31 | Observation (INO) ==
[2021-07-01] MEDS ORDERED: Isovue-370 500 ML BOTTLE IVP ONE (08:45)
[2021-07-01] MEDS ORDERED: *HR* LORazepam 2 MG/ML VIAL IVP ONE (09:17)
[2021-07-01 09:18] LABS: Basophils # 0.1 K/mcL (0.0-0.2); Basophils % 0.7 %; Eosinophils # 0.2 K/mcL (0.0-0.6); Hematocrit 43.4 % (35.3-44.9); Hemoglobin 14.8 g/dL (11.5-15.4); Immature Granulocytes % 0.3 % (0-4); Lymphocytes % 28.2 %; Mean Corpuscular HGB Conc 34.1 g/dL (31.6-35.5); Mean Corpuscular Hemoglobin 33.6 pg (28.0-33.3); Mean Corpuscular Volume 98.4 fL (83.0-100.0); Mean Platelet Volume 9.5 fL (9.4-12.4); Monocytes # 0.6 K/mcL (0.0-1.3); Monocytes % 7.9 %; Neutrophils # 4.2 K/mcL (1.6-8.9); Platelet Count 251 K/mcL (140-400); Red Blood Count 4.41 M/mcL (3.82-4.97); Red Cell Distribution Width 11.8 % (11.5-14.5); Segmented Neutrophils % 59.9 %; White Blood Count 7.1 K/mcL (4.3-11.1)
[2021-07-01 09:36] LABS: INR 0.9; Prothrombin Time 9.9 Seconds (9.4-12.1)
[2021-07-01 09:39] LABS: Activated Partial Thrombo Time 32.6 Seconds (26.0-36.0)
[2021-07-01 09:49] LABS: Alanine Aminotransferase 12 Units/L (7-52); Albumin 3.9 g/dL (3.5-5.7); Albumin/Globulin Ratio 1.8 (1.1-2.2); Alkaline Phosphatase 100 Units/L (34-104); Aspartate Amino Transferase 15 Units/L (13-39); BUN/Creatinine Ratio 12 (6-26); Bilirubin,Direct 0.1 mg/dL (0.0-0.2); Bilirubin,Indirect 0.3 mg/dL (0.0-1.0); Bilirubin,Total 0.4 mg/dL (0.3-1.0); Blood Urea Nitrogen 12 mg/dL (6-20); Carbon Dioxide 25 mEq/L (23-29); Chloride 106 mEq/L (98-107); Ethanol < 10 mg/dL (Less than 10); Globulin 2.2 g/dL (2.4-3.5); Glucose 99 mg/dL (70-105); Osmolality,Calculated 288 (280-300); Sodium 139 mEq/L (136-145); Total Protein 6.1 g/dL (6.4-8.9); Troponin I < 0.03 ng/mL (< 0.04); eGFR For African Americans > 60 (> 60); eGFR For Non-African Americans 59 (> 60)
[2021-07-01 10:28] LABS: Bacteria,Urine Few per hpf (None-Few); Bilirubin,Urine Negative (Negative); Blood,Urine Negative (Negative); Clarity,Urine Turbid (Clear); Color,Urine Colorless (Yellow); Glucose,Urine (UA) Normal (Normal); Ketones,Urine Negative (Negative); Leukocyte Esterase,Urine Negative (Negative); Nitrite,Urine Negative (Negative); PH,Urine 6.5 pH Units (5.0-8.0); Protein,Urine Negative (Neg-Trace); RBC,Urine 0-3 per hpf (0-3); Specific Gravity,Urine 1.007 (1.010-1.025); Squamous Epithelial Cell,Urine Few per hpf (None-Few); Urobilinogen,Urine Normal (Normal); WBC,Urine 0-3 per hpf (0-3)
[2021-07-01 11:54] LABS: Amphetamine Screen,Urine Negative ng/mL (Cutoff=1000); Barbiturate Screen,Urine Negative ng/mL (Cutoff=200); Benzodiazepines Screen,Urine Negative ng/mL (Cutoff=200); Cannabinoid Screen,Urine Negative ng/mL (Cutoff = 50); Cocaine Screen,Urine Negative ng/mL (Cutoff= 300); Opiate Screen,Urine Negative ng/mL (Cutoff=300); Phencyclidine Screen,Urine Negative ng/mL (Cutoff=25)
[2021-07-01] MEDS ORDERED: Naloxone 0.4 MG/ML INJ IVP PRN (12:15)
[2021-07-01] MEDS ORDERED: *HR* HYDROcodone/Acet 5/325 mg TABLET PO PRN (12:15)
[2021-07-01] MEDS ORDERED: Ondansetron 4 MG/2 ML VIAL IVP PRN (12:15)
[2021-07-01] MEDS ORDERED: SUMAtriptan succinate 50 MG TABLET PO PRN (15:43)
[2021-07-01] MEDS ORDERED: Budesonide/Formoterol 160/4.5 1 PUFF INH IH PRN (15:43)
[2021-07-01] MEDS: clonazePAM 1 MG TABLET PO PRN (17:01)
[2021-07-01] MEDS: *HR* Heparin 5,000 UNIT/ML VIAL SQ SCH (17:01)
[2021-07-01] MEDS: Nicotine 14 MG PATCH.TD24 TD SCH (17:41)
[2021-07-01] MEDS: Gabapentin 400 MG CAPSULE PO SCH (20:38)
[2021-07-02] MEDS: *HR* Heparin 5,000 UNIT/ML VIAL SQ SCH (06:05)
[2021-07-02] MEDS: clonazePAM 1 MG TABLET PO PRN (06:09)
[2021-07-02 06:50] LABS: Hematocrit 40.8 % (35.3-44.9); Hemoglobin 14.3 g/dL (11.5-15.4); Mean Corpuscular Hemoglobin 34.1 pg (28.0-33.3); Mean Corpuscular Volume 97.4 fL (83.0-100.0); Mean Platelet Volume 9.4 fL (9.4-12.4); Platelet Count 228 K/mcL (140-400); Red Blood Count 4.19 M/mcL (3.82-4.97); Red Cell Distribution Width 11.8 % (11.5-14.5)
[2021-07-02 07:04] LABS: BUN/Creatinine Ratio 13 (6-26); Blood Urea Nitrogen 13 mg/dL (6-20); Calcium 8.8 mg/dL (8.6-10.3); Carbon Dioxide 24 mEq/L (23-29); Chloride 106 mEq/L (98-107); Chol/HDL Ratio 3.7 (0-4.9); Cholesterol 162 mg/dL (< 200); Glucose 91 mg/dL (70-105); HDL Cholesterol 44 mg/dL (40-59); LDL Cholesterol,Calculated 89 mg/dL (< 100); Osmolality,Calculated 284 (280-300); Potassium 4.1 mEq/L (3.5-5.1); Sodium 137 mEq/L (136-145); Triglycerides 147 mg/dL (< 150); eGFR For African Americans > 60 (> 60); eGFR For Non-African Americans > 60 (> 60)
[2021-07-02] MEDS ORDERED: Aspirin Enteric Coated 81 MG Tablet PO SCH (09:00)
[2021-07-02] MEDS ORDERED: Nicotine 14 MG PATCH.TD24 TD SCH (09:00)
[2021-07-02] MEDS ORDERED: PARoxetine 20 MG TABLET PO SCH (09:00)
[2021-07-02] MEDS: Nicotine 14 MG PATCH.TD24 TD SCH (09:27)
[2021-07-02] MEDS: Gabapentin 400 MG CAPSULE PO SCH (09:28)
[2021-07-02 10:51] VITALS: BP 134/95; PULSE 84; TEMP 97.8; O2SAT 94
[2021-07-02 12:10] LABS: Estimated Average Glucose 100 mg/dl; Hemoglobin A1C 5.1 %
== END 2021-07-02 12:43 | disposition home or self-care (01) ==
LOC: EMEROOARM 08:31 → 3BNU 08:31 → SUATTDRO 12:42 → 3BNU 13:00
PROVIDERS: ADMIT Internal Medicine; ATTEND Internal Medicine

== ENCOUNTER 2022-05-14 14:08 | Observation (INO) ==
[2022-05-14] MEDS ORDERED: Iopamidol - 370 500 ML MLS IVP ONE (14:27)
[2022-05-14 14:37] LABS: Hematocrit 38.6 % (35.3-44.9); Hemoglobin 13.6 g/dL (11.5-15.4); Mean Corpuscular HGB Conc 35.2 g/dL (31.6-35.5); Mean Corpuscular Hemoglobin 34.1 pg (28.0-33.3); Mean Corpuscular Volume 96.7 fL (83.0-100.0); Mean Platelet Volume 8.9 fL (9.4-12.4); Platelet Count 248 K/mcL (140-400); Red Blood Count 3.99 M/mcL (3.82-4.97); Red Cell Distribution Width 12.1 % (11.5-14.5)
[2022-05-14 15:01] LABS: BUN/Creatinine Ratio 12 (6-26); Blood Urea Nitrogen 13 mg/dL (6-20); Calcium 8.8 mg/dL (8.6-10.3); Carbon Dioxide 26 mEq/L (23-29); Chloride 105 mEq/L (98-107); Glucose 115 mg/dL (70-105); Osmolality,Calculated 289 (280-300); Potassium 4.1 mEq/L (3.5-5.1); Sodium 139 mEq/L (136-145); Troponin I < 0.03 ng/mL (< 0.04)
[2022-05-14] MEDS ORDERED: Ondansetron ODT 4 MG TAB.RAPDIS SL PRN (16:32)
[2022-05-14] MEDS ORDERED: Naloxone 0.4 MG/ML INJ IVP PRN (16:32)
[2022-05-14] MEDS ORDERED: Acetaminophen 325 MG TABLET PO PRN (16:48)
[2022-05-14] MEDS: Aspirin 81 MG TAB.CHEW PO SCH (17:42)
[2022-05-14] MEDS: *HR* Heparin 5,000 UNIT/ML VIAL SQ SCH (20:40)
[2022-05-14] MEDS ORDERED: clonazePAM 1 MG TABLET PO PRN (23:46)
[2022-05-15] MEDS: Famotidine 20 MG TABLET PO SCH ×2 (00:33→08:34)
[2022-05-15] MEDS: Gabapentin 400 MG CAPSULE PO SCH ×3 (00:33→13:57)
[2022-05-15 02:21] LABS: Prothrombin Time 11.3 Seconds (9.4-12.1)
[2022-05-15 02:40] LABS: Calcium 8.4 mg/dL (8.6-10.3); Chol/HDL Ratio 2.2 (0-4.9)
[2022-05-15 03:42] LABS: Estimated Average Glucose 100 mg/dl; Hemoglobin A1C 5.1 %
[2022-05-15] MEDS: *HR* Heparin 5,000 UNIT/ML VIAL SQ SCH ×2 (06:06→13:57)
[2022-05-15 07:15] VITALS: O2SAT 96
[2022-05-15 08:24] LABS: Hematocrit 39.1 % (35.3-44.9); Hemoglobin 13.5 g/dL (11.5-15.4); Mean Corpuscular HGB Conc 34.5 g/dL (31.6-35.5); Mean Corpuscular Hemoglobin 33.6 pg (28.0-33.3); Mean Corpuscular Volume 97.3 fL (83.0-100.0); Mean Platelet Volume 8.9 fL (9.4-12.4); Platelet Count 221 K/mcL (140-400); Red Blood Count 4.02 M/mcL (3.82-4.97); Red Cell Distribution Width 12.1 % (11.5-14.5)
[2022-05-15] MEDS: Aspirin 81 MG TAB.CHEW PO SCH (08:34)
[2022-05-15] MEDS ORDERED: PARoxetine 20 MG TABLET PO SCH (09:00)
[2022-05-15 15:53] VITALS: BP 127/81; PULSE 88; TEMP 97.7
== END 2022-05-15 16:15 | disposition home or self-care (01) ==
LOC: EMEROOARM 14:08 → 3BNU 14:08 → SUATTDRO 15:55 → 3BNU 17:07
PROVIDERS: ADMIT Internal Medicine; ATTEND Student in an Organized Health Care Education/Training Program

== ENCOUNTER 2022-05-31 18:58 | Observation (INO) ==
[2022-06-01] MEDS ORDERED: Iopamidol - 370 500 ML MLS IVP ONE (01:25)
[2022-06-01] MEDS ORDERED: Vancomycin 2,000 MG/520 ML IV.SOLN IVPB ONE (05:18)
[2022-06-01 05:43] LABS: Basophils % 0.3 %; Eosinophils # 0.2 K/mcL (0.0-0.6); Hematocrit 38.4 % (35.3-44.9); Hemoglobin 13.2 g/dL (11.5-15.4); Immature Granulocytes % 0.1 % (0-4); Lymphocytes # 2.9 K/mcL (0.6-4.6); Lymphocytes % 35.6 %; Mean Corpuscular HGB Conc 34.4 g/dL (31.6-35.5); Mean Corpuscular Hemoglobin 33.2 pg (28.0-33.3); Mean Corpuscular Volume 96.7 fL (83.0-100.0); Mean Platelet Volume 9.2 fL (9.4-12.4); Monocytes # 0.5 K/mcL (0.0-1.3); Monocytes % 5.9 %; Neutrophils # 4.4 K/mcL (1.6-8.9); Platelet Count 231 K/mcL (140-400); Red Blood Count 3.97 M/mcL (3.82-4.97); Red Cell Distribution Width 12.1 % (11.5-14.5); Segmented Neutrophils % 55.1 %
[2022-06-01 06:15] LABS: Calcium 8.9 mg/dL (8.6-10.3); Potassium 3.6 mEq/L (3.5-5.1)
[2022-06-01] MEDS ORDERED: Naloxone 0.4 MG/ML INJ IVP PRN (08:12)
[2022-06-01] MEDS ORDERED: *HR* OxyCODONE Immed Rel 5 MG TABLET PO PRN (08:12)
[2022-06-01] MEDS ORDERED: Acetaminophen 325 MG TABLET PO PRN (08:12)
[2022-06-01] MEDS ORDERED: Ipratropium/Albuterol Neb 3 ML IH PRN (08:31)
[2022-06-01] MEDS: Piperacillin/Tazobactam 3.375 GM in 0.9 % Sodium Chloride Mini Bag 100 ML IVPB SCH ×3 (10:43→23:27)
[2022-06-01] MEDS: Aspirin 81 MG TAB.CHEW PO SCH (10:44)
[2022-06-01] MEDS: *HR* HYDROcodone/Acet 5/325 mg TABLET PO PRN (15:16)
[2022-06-01] MEDS: Ondansetron 4 MG/2 ML VIAL IVP PRN (17:36)
[2022-06-01] MEDS: Vancomycin 2,000 MG/520 ML IV.SOLN IVPB SCH (17:38)
[2022-06-02] MEDS: Vancomycin 2,000 MG/520 ML IV.SOLN IVPB SCH ×2 (04:31→17:21)
[2022-06-02 05:05] LABS: Basophils % 0.3 %; Eosinophils # 0.3 K/mcL (0.0-0.6); Eosinophils % 4.5 %; Hematocrit 36.6 % (35.3-44.9); Hemoglobin 12.6 g/dL (11.5-15.4); Immature Granulocytes % 0.3 % (0-4); Lymphocytes % 33.8 %; Mean Corpuscular HGB Conc 34.4 g/dL (31.6-35.5); Mean Corpuscular Hemoglobin 32.7 pg (28.0-33.3); Mean Corpuscular Volume 95.1 fL (83.0-100.0); Mean Platelet Volume 9.1 fL (9.4-12.4); Monocytes # 0.4 K/mcL (0.0-1.3); Monocytes % 7.2 %; Neutrophils # 3.2 K/mcL (1.6-8.9); Platelet Count 230 K/mcL (140-400); Red Blood Count 3.85 M/mcL (3.82-4.97); Red Cell Distribution Width 12.2 % (11.5-14.5); Segmented Neutrophils % 53.9 %
[2022-06-02 05:28] LABS: Calcium 8.2 mg/dL (8.6-10.3)
[2022-06-02] MEDS: Aspirin 81 MG TAB.CHEW PO SCH (09:08)
[2022-06-02] MEDS: Piperacillin/Tazobactam 3.375 GM in 0.9 % Sodium Chloride Mini Bag 100 ML IVPB SCH ×2 (09:08→17:21)
[2022-06-02] MEDS: *HR* HYDROcodone/Acet 5/325 mg TABLET PO PRN (13:45)
[2022-06-02] MEDS: Ondansetron 4 MG/2 ML VIAL IVP PRN (13:46)
[2022-06-02] MEDS ORDERED: Melatonin 3 MG TABLET PO PRN (17:25)
[2022-06-02] MEDS ORDERED: Linaclotide [Linzess] 145 MCG Capsule PO PRN (17:26)
[2022-06-02] MEDS ORDERED: clonazePAM 1 MG TABLET PO SCH (21:00)
[2022-06-02] MEDS: Gabapentin 400 MG CAPSULE PO SCH (21:16)
[2022-06-03] MEDS: Piperacillin/Tazobactam 3.375 GM in 0.9 % Sodium Chloride Mini Bag 100 ML IVPB SCH ×2 (00:01→09:22)
[2022-06-03] MEDS: Vancomycin 2,000 MG/520 ML IV.SOLN IVPB SCH (05:02)
[2022-06-03 07:07] VITALS: BP 128/87; PULSE 64; TEMP 97.5; O2SAT 93
[2022-06-03] MEDS ORDERED: PARoxetine 20 MG TABLET PO SCH (09:00)
[2022-06-03] MEDS ORDERED: Benzonatate 100 MG CAPSULE PO SCH (09:00)
[2022-06-03] MEDS ORDERED: lisinopriL 10 MG TABLET PO SCH (09:00)
[2022-06-03] MEDS: Aspirin 81 MG TAB.CHEW PO SCH (09:21)
[2022-06-03] MEDS: Gabapentin 400 MG CAPSULE PO SCH (09:21)
== END 2022-06-03 11:16 | disposition home or self-care (01) ==
LOC: 3BNU 18:58 → EMEROOARM 18:58 → SUATTDRO 06-01 13:09 → 3BNU 06-01 14:33
PROVIDERS: ADMIT Pharmacist; ATTEND Registered Nurse